=== PATIENT | male | born 1950 | race Caucasian/White ===

== ENCOUNTER 2017-04-04 08:30 | Observation (INO) | payer OTHER, MEDICARE ==
[~2017-04-04] VITALS: Ht 188 cm; Wt 87.7 kg
[2017-04-04] VITALS (7 sets, daily range): BP systolic 98–119; BP diastolic 62–81
[2017-04-04] MEDS ORDERED: IV NORMAL SALINE 1000ML BAG 1,000 ML IV SCH (08:31)
[2017-04-04] MEDS ORDERED: fentaNYL PF VIAL 100 MCG/2 ML VIAL IV PRN ×2 (08:45→10:30)
[2017-04-04] MEDS ORDERED: 0.9 % SODIUM CHLORIDE 10 ML DISP.SYRIN. IV PRN (08:45)
[2017-04-04 08:55] LABS: BASO # 0.1 x10^3/uL (0.0-0.2); BASO % 1 % (0-3); EOS % 2 % (0-3); HEMATOCRIT 41.3 % (39.0-53.0); HEMOGLOBIN 13.8 g/dL (13.0-17.5); LYMPH # 1.2 x10^3/uL (1.0-4.8); LYMPH % 16 % (24-48); MEAN CORPUSCULAR HEMOGLOBIN 29 pg (25-35); MEAN CORPUSCULAR HGB CONC 34 g/dL (31-37); MEAN CORPUSCULAR VOLUME 86 fL (79-100); MONO % 8 % (0-9); NEUT % 74 % (31-73); PLATELET COUNT 177 x10^3/uL (140-400); RED BLOOD COUNT 4.79 x10^6/uL (4.30-5.70); RED CELL DISTRIBUTION WIDTH 15.6 % (11.5-14.5); WHITE BLOOD COUNT 7.3 x10^3/uL (4.0-11.0)
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
[2017-04-04 09:07] LABS: CALCIUM 8.7 mg/dL (8.5-10.1); CREATININE 1.1 mg/dL (0.7-1.3); GFR 67.2; POTASSIUM 3.8 mmol/L (3.5-5.1)
--- NOTE | 2017-04-04 09:13 | RAD ---
Indication chest pain. Syncopal episode. Protocol study. A single view of the chest was obtained. No prior imaging is available. Heart size is at the upper limits of normal. There is no congestive heart failure. There is no focal infiltrate. There is no pleural fluid or pneumothorax and the visualized bony structures appear grossly intact. IMPRESSION: No acute or focal process is seen in the chest
[2017-04-04] MEDS ORDERED: ASPIRIN CHEWABLE 81 MG TABLET. PO ONE (09:15)
[2017-04-04 09:24] LABS: ALBUMIN 3.8 g/dL (3.4-5.0); DIRECT BILIRUBIN 0.3 mg/dL (0.0-0.2); MAGNESIUM 1.9 mg/dL (1.8-2.4); TOTAL BILIRUBIN 1.5 mg/dL (0.2-1.0); TOTAL PROTEIN 6.3 g/dL (6.4-8.2)
[2017-04-04 09:35] LABS: CKMB MASS 4.1 ng/mL (0.0-3.6)
[2017-04-04] MEDS: IV NORMAL SALINE 1000ML BAG 1,000 ML IV SCH ×2 (10:17→17:54)
[2017-04-04] MEDS ORDERED: ACETAMINOPHEN 325 MG TABLET. PO PRN (10:30)
[2017-04-04] MEDS ORDERED: NITROGLYCERIN SUBLINGUAL 0.4 MG BOTTLE OF 25. SL PRN (10:30)
[2017-04-04] MEDS ORDERED: ONDANSETRON PF 4 MG/2 ML VIAL. IV PRN (10:30)
[2017-04-04 11:39] LABS: BILIRUBIN,URINE NEGATIVE (NEG); GLUCOSE,URINE NEGATIVE (NEG); NITRITE,URINE NEGATIVE (NEG); PROTEIN,URINE NEGATIVE (NEG-TRACE); UROBILINOGEN,URINE 0.2 mg/dL (0.2 mg/dL)
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
[2017-04-04 11:55] LABS: BACTERIA,URINE 0 /HPF (0-FEW); RBC,URINE 0 /HPF (0-2); WBC,URINE 0 /HPF (0-4)
--- NOTE | 2017-04-04 12:49 | EKG ---
[facility] [address] [place] [address] Test Date: 2017-04-04 Test Time: 08:39:33 Pat Name: REID FELDMAN Department: Room: 208 1 Gender: M Housekeeping Attendant: : 1950 Requested By: DEMARCO HENRY Order Number: [id number] Reading MD: Isaiah Rogers Measurements Intervals [place] Rate: 58 P: -23 CO: 178 QRS: -14 QRSD: 100 T: 0 QT: 388 QTc: 380 Interpretive Statements SINUS RHYTHM LEFTWARD AXIS INCOMPLETE RIGHT BUNDLE BRANCH BLOCK QRS(T) CONTOUR ABNORMALITY CONSIDER ANTEROSEPTAL MYOCARDIAL DAMAGE CONSISTENT WITH INFERIOR INFARCT AGE UNDETERMINED RI6.01 Unconfirmed report No previous ECG available for comparison Electronically Signed On 04-09-2017 9:39:12 CDT by Isaiah Rogers
[2017-04-04 12:57] LABS: CHOLESTEROL/HDL RATIO 2.7
[2017-04-04] MEDS ORDERED: PRAS10TA9 PO (13:46)
[2017-04-04] MEDS ORDERED: ERGO500027 PO (13:46)
[2017-04-04] MEDS ORDERED: ATORVASTATIN CA80 MG PO (13:46)
[2017-04-04] MEDS ORDERED: FERR-26 PO (13:46)
[2017-04-04] MEDS ORDERED: PANT40TA5 PO (13:46)
[2017-04-04] MEDS ORDERED: LISI2.5T PO (13:46)
[2017-04-04] MEDS ORDERED: CARV3.122 PO (13:46)
[2017-04-04] MEDS: PANTOPRAZOLE 40 MG TABLET.DR. PO SCH (14:00)
[2017-04-04] MEDS: LISINOPRIL 2.5 MG TABLET PO SCH (14:00)
[2017-04-04] MEDS: PRASUGREL 10 MG TABLET. PO SCH (14:00)
[2017-04-04] MEDS: ASPIRIN ENTERIC COATED 81 MG TABLET.DR. PO SCH (14:00)
--- NOTE | 2017-04-04 15:18 | CARD ---
APPROVED REPORT EXAM: Two-dimensional and M-mode echocardiogram with Doppler and color Doppler. Other Information Quality : Fair Rhythm : NSRTechnically limited study due to INDICATION Chest Pain Syncope 2D DIMENSIONS Left Atrium(2D)3.2 (1.6-4.0cm)IVSd1.0 (0.7-1.1cm) Aortic Root(2D)3.6 (2.0-3.7cm)LVDd5.1 (3.9-5.9cm) LVOT Diameter2.0 (1.8-2.4cm)PWd1.0 (0.7-1.1cm) LVDs3.7 (2.5-4.0cm)FS (%) 28.0 % SV66.0 mlLVEF(%)54.0 (>50%) Aortic Valve AoV Peak Eliud.117.6cm/sAoV VTI28.1cm AO Peak GR.5.5mmHgLVOT VTI 26.56cm AO Mean GR.4mmHg Mitral Valve MV E Xhkxwwtx52.0cm/sMV DECEL NHMP212qx MV A Ownurivs19.6cm/sE/A Ratio0.9 MV A [id number] TDI Lateral E' P. V11.33cm/sMedial E' P. V7.92cm/s E/Lateral E'5.6E/Medial E'8.0 Tricuspid Valve TR P. Fpncsatd215iy/sRAP MYKJUBKA4kgSj TR Peak Gr.50usSbNIVU32neSb LEFT VENTRICLE The left ventricle is normal size. There is normal left ventricular wall thickness. Left ventricle sy stolic function is normal. The Ejection Fraction is 55%. There is normal LV segmental wall motion. Th e left ventricular diastolic function and filling is normal for age. There is no ventricular septal d efect visualized. RIGHT VENTRICLE The right ventricle is normal size. The right ventricular systolic function is normal. ATRIA The left atrium size is normal. The right atrium size is normal. The interatrial septum is intact wit h no evidence for an atrial septal defect or patent foramen ovale as noted on 2-D or Doppler imaging. AORTIC VALVE The aortic valve is normal in structure and function. The aortic valve is trileaflet. Doppler and Col or Flow revealed no significant aortic regurgitation. There is no significant aortic valvular stenosi s. MITRAL VALVE The mitral valve is normal in structure and function. There is no mitral valve stenosis. Doppler and Color Flow revealed no mitral valve regurgitation noted. TRICUSPID VALVE The tricuspid valve is not well visualized. Doppler and Color Flow revealed trace tricuspid regurgita tion. The PA pressure was estimated at 25 mmHg. There is no tricuspid valve stenosis. PULMONIC VALVE The pulmonic valve is not well visualized. Doppler and Color Flow revealed no pulmonic valvular regur gitation. There is no pulmonic valvular stenosis. GREAT VESSELS The aortic root is normal in size. Pulmonary veins not recorded. The IVC was not visualized. PERICARDIAL EFFUSION There is no evidence of significant pericardial effusion. Critical Notification Critical Value: No <Conclusion> Left ventricle systolic function is normal. The Ejection Fraction is 55%. There is normal LV segmental wall motion. Doppler and Color Flow revealed trace tricuspid regurgitation. The PA pressure was estimated at 25 mmHg. There is no evidence of significant pericardial effusion.
[2017-04-04] MEDS: FLUoxetine HCL 20 MG CAPSULE PO SCH (17:53)
[2017-04-04] MEDS: CARVEDILOL 3.125 MG TABLET. PO SCH (17:53)
--- NOTE | 2017-04-04 20:40 | HP ---
ADMIT DATE: 04/04/2017 CHIEF COMPLAINT: Chest pain. HISTORY OF PRESENT ILLNESS: The patient is a pleasant elderly male with known coronary artery disease. He actually had a myocardial infarction back in November of this year. He got two stents to the RCA. Once again, he had chest pain today, apparently was arguing with his . He also had some presyncopal symptoms. He was also crying in the ER. We suspect he is a little depressed. I have discussed the case with the ER physician. We are going to go and admit the patient and consult Cardiology. PAST MEDICAL HISTORY: Previous myocardial infarction, two coronary stents, hyperlipidemia, hypertension, depression. ALLERGIES: Denies. FAMILY HISTORY: Coronary artery disease. SOCIAL HISTORY: He is . He does not drink, smoke or take drugs. MEDICATIONS: Reviewed, please refer to the MRAD. REVIEW OF SYSTEMS: GENERAL: No history of weight change, weakness or fevers. SKIN: No bruising, hair changes or rashes. EYES: No blurred, double or loss of vision. NOSE AND THROAT: No history of nosebleeds, hoarseness or sore throat. HEART: He complains of chest pain and left arm tingling and left neck pain. LUNGS: Denies cough, hemoptysis, wheezing or shortness of breath. GASTROINTESTINAL: Denies changes in appetite, nausea, vomiting, diarrhea or constipation. GENITOURINARY: No history of frequency, urgency, hesitancy or nocturia. NEUROLOGIC: Denies history of numbness, tingling, tremor or weakness. PSYCHIATRIC: No history of panic, anxiety or depression. ENDOCRINE: No history of heat or cold intolerance, polyuria or polydipsia. EXTREMITIES: Denies muscle weakness, joint pain, pain on walking or stiffness. PHYSICAL EXAMINATION: VITAL SIGNS: Temperature afebrile, pulse 97, respirations 18, blood pressure 142/90. GASTROINTESTINAL: He is alert, cooperative. HEART: Normal S1, S2. LUNGS: Clear. ABDOMEN: Soft. EXTREMITIES: No edema. ENDOCRINE: No thyromegaly. LYMPHATICS: No cervical nodes. HEMATOPOIETIC: No bruising. LABORATORY DATA: White count 7, hemoglobin 13.8, platelets 177. Electrolytes normal. Troponin is 0. ASSESSMENT AND PLAN: Chest pain with known coronary artery disease. The patient has been admitted. We will check serial enzymes, serial EKGs. Consult Cardiology. Regarding his tearfulness, we will go ahead and put him on Prozac 20 mg p.o. every day. Resume his home medicines, daily aspirin. CHIO GOMES DO DR: SUSY/rahel JOB#: [id number] / [id number]
[2017-04-04] MEDS ORDERED: ATORVASTATIN CALCIUM 40 MG TABLET. PO SCH ×2 (21:00)
[2017-04-05] MEDS: IV NORMAL SALINE 1000ML BAG 1,000 ML IV SCH (02:57)
[2017-04-05 07:00] VITALS: BP 141/82
[2017-04-05] MEDS: ASPIRIN ENTERIC COATED 81 MG TABLET.DR. PO SCH (08:56)
[2017-04-05] MEDS: PANTOPRAZOLE 40 MG TABLET.DR. PO SCH (08:56)
[2017-04-05] MEDS: PRASUGREL 10 MG TABLET. PO SCH (08:56)
[2017-04-05] MEDS: LISINOPRIL 2.5 MG TABLET PO SCH (08:56)
[2017-04-05] MEDS: FLUoxetine HCL 20 MG CAPSULE PO SCH (08:57)
[2017-04-05] MEDS: CARVEDILOL 3.125 MG TABLET. PO SCH (08:57)
--- NOTE | 2017-04-05 10:56 | PDOC ---
CARDIO Progress Notes Date and Time Date of Service 04/05/2017 Time of Evaluation 0950 Subjective Subjective: No Chest Pain, No shortness of breath, No Palpitations, Other (No complains overnight) Vitals Vitals Vital Signs Date Time Temp Pulse Resp B/P (MAP) Pulse Ox O2 Delivery O2 Flow Rate FiO2 04/05/17 08:57 71 04/05/17 08:56 141/82 04/05/17 08:00 Room Air 04/05/17 07:00 98.5 18 97 98.5 Weight Weight [ ] Input and Output Intake and Output Intake and Output 04/05/17 07:00 Intake Total 1550 ml Balance 1550 ml Intake Oral 550 ml IV Total 1000 ml # Voids 4 Laboratory Labs Laboratory Tests Test 04/04/17 11:00 04/04/17 16:10 04/04/17 22:20 Urine Collection Type Unknown Urine Color Yellow Urine Clarity Clear Urine pH 7.0 Urine Specific [place] 1.010 Urine Protein Negative mg/dL (NEG-TRACE) Urine Glucose (UA) Negative mg/dL (NEG) Urine Ketones (Stick) Negative mg/dL (NEG) Urine Blood Negative (NEG) Urine Nitrite Negative (NEG) Urine Bilirubin Negative (NEG) Urine Urobilinogen Dipstick 0.2 mg/dL (0.2 mg/dL) Urine Leukocyte Esterase Negative (NEG) Urine RBC 0 /HPF (0-2) Urine WBC 0 /HPF (0-4) Urine Bacteria 0 /HPF (0-FEW) Troponin I Quantitative < 0.017 ng/mL (0.000-0.055) < 0.017 ng/mL (0.000-0.055) Physical Exam HEENT: Neck Supple W Full Motion Chest: Symmetric LUNGS: Clear to Auscultation Heart: S1S2, RRR (SR) Abdomen: Soft N/T Extremities: No Edema, No Calf Tenderness Neurology: alert, oriented, follow commands Assessment Assessment 1. Chest pain: likely induced by anxiety with vasovagal episode. No further episode overnight 2. Presyncope/palpitations: Likely vasovagal. Borderline orthostasis. 3. CAD/LA: Previous cardiac arrest with inferior STEMI, 2 stents to RCA 11/2016 4. HTN: controlled 5. HLP 6. Hx of CVA: see below. 11/2016 7. Likely vascular dementia: increasing forgetfulness 8. Anxiety/mild depression: now on prozac 9. Family hx of hemorrhagic stroke (mother) and inguinal aneurysm (father) Recommendations 1. TTE unremarkable for significant changes with normal EF and LV function. Continue with DAPT (ASA and effient) and secondary prevention 2. Continue with low dose coreg and lisinopril. Encourage hydration adequacy and slow positional changes. 3. No further cardiac workup. 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 Clark. 4. Decrease home lipitor to 40 mg as lipids are well too controlled 5. Will likely need outpt neurology follow up. 6. No evidence of AFIB as an inpt but pt was noted with AFIB while in ICU on 2016 post cardiac arrest. No noted recommendation for event monitor nor anticoagulation at that time. Will keep on ASA and will defer further of the latter to his primary axle bearing polisher. 7. Old records reviewed as below. * 12/05/2016 admitted with witnessed cardiac arrest at work noted with Inferior STEMI presenting with V-Fib and also noted with AFIB * 12/05/2016 LHC noted with 100% to mid RCA and OM 1 with 70-80% in the inferior branch, LAD with luminal irregularities with proximal 40% and mid 30% stenosis * Noted at that time with inferior wall hypokinesis with EF at 40%, PTCA with x2 Resolute TRIPP to mid RCA * 12/07/2016 Brain MRI with 2 small punctuate foci of restricted diffusion and decreased signal intensity on ADC mapping are noted to right cerebellum and inferior left parietal temporal lobe suggesting possible tiny acute lacunar or embolic infarcts * Mild to moderate carotid artery disease [employer] Apr 05, 2017 10:56
[2017-04-05 11:00] VITALS: BP 131/77
--- NOTE | 2017-04-05 11:47 | PDOC ---
PROGRESS NOTES Chief Complaint Chief Complaint CC: Chest pain -ND -V-fib -Stent complications History of Present Illness History of Present Illness -Pt resting in bed -Appeared alert and NAD -Discussed pt's anxiety provoking circumstances with nurse -Discussed positive prognosis with pt Vitals Vitals Vital Signs Date Time Temp Pulse Resp B/P (MAP) Pulse Ox O2 Delivery O2 Flow Rate FiO2 04/05/17 11:00 98.1 66 18 131/77 (95) 96 Room Air 98.1 Physical Exam General: Alert, Oriented X3, Cooperative, No acute distress Heart: Regular rate (SR), Normal S1, Normal S2, No murmurs Lungs: Clear, Other (No RRW) Abdomen: Soft, No tenderness Extremities: No cyanosis, No edema Skin: No breakdown, No significant lesion Labs LABS Laboratory Tests Test 04/04/17 16:10 04/04/17 22:20 Troponin I Quantitative < 0.017 ng/mL (0.000-0.055) < 0.017 ng/mL (0.000-0.055) Review of Systems Review of Systems -Weakness -Complains of anxiety Assessment and Plan Assessmemt and Plan Problems Medical Problems: (1) Abnormal EKG Status: Acute (2) Anxiety Status: Acute (3) Chest pain Status: Acute CC: Chest pain -ND -V-fib -Stent complications Plan: -Continue cardiac monitoring -Continue home meds -PT/OT -Recheck labs -Appreciate subspecialist input -Possible d/c if okay with Cardiology Problems: Comment Review of Relevant I have reviewed the following items cristi (where applicable) has been applied. Labs Laboratory Tests Test 04/04/17 08:48 04/04/17 11:00 04/04/17 16:10 04/04/17 22:20 White Blood Count 7.3 x10^3/uL (4.0-11.0) Red Blood Count 4.79 x10^6/uL (4.30-5.70) Hemoglobin 13.8 g/dL (13.0-17.5) Hematocrit 41.3 % (39.0-53.0) Mean Corpuscular Volume 86 fL (79-100) Mean Corpuscular Hemoglobin 29 pg (25-35) Mean Corpuscular Hemoglobin Concent 34 g/dL (31-37) Red Cell Distribution Width 15.6 % (11.5-14.5) Platelet Count 177 x10^3/uL (140-400) Neutrophils (%) (Auto) 74 % (31-73) Lymphocytes (%) (Auto) 16 % (24-48) Monocytes (%) (Auto) 8 % (0-9) Eosinophils (%) (Auto) 2 % (0-3) Basophils (%) (Auto) 1 % (0-3) Neutrophils # (Auto) 5.4 x10^3uL (1.8-7.7) Lymphocytes # (Auto) 1.2 x10^3/uL (1.0-4.8) Monocytes # (Auto) 0.6 x10^3/uL (0.0-1.1) Eosinophils # (Auto) 0.1 x10^3/uL (0.0-0.7) Basophils # (Auto) 0.1 x10^3/uL (0.0-0.2) Sodium Level 141 mmol/L (136-145) Potassium Level 3.8 mmol/L (3.5-5.1) Chloride Level 106 mmol/L (98-107) Carbon Dioxide Level 27 mmol/L (21-32) Anion Gap 8 (6-14) Blood Urea Nitrogen 18 mg/dL (8-26) Creatinine 1.1 mg/dL (0.7-1.3) Estimated GFR (Cockcroft-Gault) 67.2 Glucose Level 112 mg/dL (70-99) Calcium Level 8.7 mg/dL (8.5-10.1) Magnesium Level 1.9 mg/dL (1.8-2.4) Total Bilirubin 1.5 mg/dL (0.2-1.0) Direct Bilirubin 0.3 mg/dL (0.0-0.2) Aspartate Amino Transf (AST/SGOT) 21 U/L (15-37) Alanine Aminotransferase (ALT/SGPT) 44 U/L (16-63) Alkaline Phosphatase 101 U/L (46-116) Creatine Kinase 150 U/L (39-308) Creatine Kinase MB (Mass) 4.1 ng/mL (0.0-3.6) Creatine Kinase MB Relative Index 2.7 % (0-4) Troponin I Quantitative < 0.017 ng/mL (0.000-0.055) < 0.017 ng/mL (0.000-0.055) < 0.017 ng/mL (0.000-0.055) PE-Hss-Z-Type Natriuretic Peptide 270 pg/mL (0-124) Total Protein 6.3 g/dL (6.4-8.2) Albumin 3.8 g/dL (3.4-5.0) Triglycerides Level 67 mg/dL (0-150) Cholesterol Level 81 mg/dL (0-200) LDL Cholesterol, Calculated 38 mg/dL (0-100) VLDL Cholesterol, Calculated 13 mg/dL (0-40) Non-HDL Cholesterol Calculated 51 mg/dL (0-129) HDL Cholesterol 30 mg/dL (40-60) Cholesterol/HDL Ratio 2.7 Lipase 157 U/L (73-393) Thyroid Stimulating Hormone (TSH) 0.522 uIU/mL (0.358-3.74) Urine Collection Type Unknown Urine Color Yellow Urine Clarity Clear Urine pH 7.0 Urine Specific [place] 1.010 Urine Protein Negative mg/dL (NEG-TRACE) Urine Glucose (UA) Negative mg/dL (NEG) Urine Ketones (Stick) Negative mg/dL (NEG) Urine Blood Negative (NEG) Urine Nitrite Negative (NEG) Urine Bilirubin Negative (NEG) Urine Urobilinogen Dipstick 0.2 mg/dL (0.2 mg/dL) Urine Leukocyte Esterase Negative (NEG) Urine RBC 0 /HPF (0-2) Urine WBC 0 /HPF (0-4) Urine Bacteria 0 /HPF (0-FEW) Laboratory Tests Test 04/04/17 16:10 04/04/17 22:20 Troponin I Quantitative < 0.017 ng/mL (0.000-0.055) < 0.017 ng/mL (0.000-0.055) Medications Current Medications Aspirin (Children'S Aspirin) 324 mg 1X ONCE PO Last administered on 04/04/17 09:05; Start 04/04/17 at 09:15; Stop 04/04/17 at 09:16; Status DC Lorazepam (Ativan) 1 mg 1X ONCE IV Last administered on 04/04/17 09:05; Start 04/04/17 at 09:15; Stop 04/04/17 at 09:16; Status DC Fentanyl Citrate (Fentanyl 2ml Vial) 50 mcg PRN Q15MIN PRN IV PAIN GREATER THAN 3/10; Start 04/04/17 at 08:45; Stop 04/05/17 at 08:44; Status DC Sodium Chloride 1,000 ml @ 1,000 mls/hr Q1H IV Last administered on 04/04/17 08:56; Start 04/04/17 at 08:31; Stop 04/04/17 at 09:30; Status DC Sodium Chloride (Normal Saline Flush) 10 ml QSHIFT PRN IV AFTER MEDS AND BLOOD DRAWS; Start 04/04/17 at 08:45 Ondansetron HCl (Zofran) 4 mg PRN Q8HRS PRN IV NAUSEA/VOMITING; Start 04/04/17 at 10:30; Stop 04/05/17 at 10:29; Status DC Fentanyl Citrate (Fentanyl 2ml Vial) 50 mcg PRN Q2HR PRN IV PAIN; Start at 10:30; Stop 04/05/17 at 10:29; Status DC Sodium Chloride 1,000 ml @ 120 mls/hr Q8H20M IV Last administered on 04/04/17 17:54; Start 04/04/17 at 10:17; Stop 04/05/17 at 10:16; Status DC Acetaminophen (Tylenol) 650 mg PRN Q4HRS PRN PO FEVER; Start 04/04/17 at 10:30; Stop 04/05/17 at 10:29; Status DC Nitroglycerin (Nitrostat) 0.4 mg PRN Q5MIN PRN SL CHEST PAIN; Start 04/04/17 at 10:30; Stop 04/05/17 at 10:29; Status DC Prasugrel (Effient) 10 mg DAILYWBKFT PO Last administered on 04/05/17 08:56; Start 04/04/17 at 14:00 Pantoprazole Sodium (Protonix) 40 mg DAILYAC PO Last administered on 04/05/17 08:56; Start 04/04/17 at 14:00 Aspirin (Ecotrin) 81 mg DAILYWBKFT PO Last administered on 04/05/17 08:56; Start 04/04/17 at 14:00 Atorvastatin Calcium (Lipitor) 80 mg QHS PO ; Start 04/04/17 at 21:00; Stop at 21:00; Status DC Carvedilol (Coreg) 3.125 mg BIDWMEALS PO Last administered on 04/05/17 08:57; Start 04/04/17 at 17:00 Lisinopril (Prinivil) 2.5 mg DAILY PO Last administered on 04/05/17 08:56; Start 04/04/17 at 14:00 Atorvastatin Calcium (Lipitor) 40 mg QHS PO Last administered on 04/04/17 20:49 ; Start 04/04/17 at 21:00 Fluoxetine HCl (PROzac) 20 mg DAILY PO Last administered on 04/05/17 08:57; Start 04/04/17 at 17:30 Active Scripts Active Reported Ferrous Sulfate 325 Mg Tablet 325 Mg PO DAILY Lisinopril 2.5 Mg Tablet 2.5 Mg PO DAILY Carvedilol 3.125 Mg Tablet 3.125 Mg PO BIDWMEALS Vitamin D2 (Ergocalciferol (Vitamin D2)) 50,000 Unit Capsule 50,000 Unit PO QTH Pantoprazole Sodium 40 Mg Tablet.dr 40 Mg PO DAILY Atorvastatin Calcium 80 Mg Tablet 80 Mg PO DAILY Effient (Prasugrel Hcl) 10 Mg Tablet 10 Mg PO DAILY Vitals/I & O Vital Sign - Last 24 Hours 04/04/17 04/04/17 04/04/17 04/04/17 11:37 12:30 14:22 15:30 Temp 97.7 98.0 97.7 98.0 Pulse 56 63 62 Resp 18 18 B/P (MAP) 119/81 (94) 103/66 (78) 111/68 (82) Pulse Ox 98 97 O2 Delivery Room Air Room Air Room Air 04/04/17 04/04/17 04/04/17 04/04/17 15:35 15:40 17:53 19:21 Temp 98.4 98.4 Pulse 58 74 63 66 Resp 20 B/P (MAP) 108/65 (79) 98/62 (74) 110/65 (80) Pulse Ox 96 O2 Delivery Room Air 04/04/17 04/04/17 04/05/17 04/05/17 20:00 22:23 02:39 07:00 Temp 98.5 98.2 98.5 98.5 98.2 98.5 Pulse 66 69 70 Resp 18 18 18 B/P (MAP) 107/64 (78) 141/82 (101) Pulse Ox 95 96 97 O2 Delivery Room Air Room Air Room Air Room Air 04/05/17 04/05/17 04/05/17 04/05/17 08:00 08:56 08:57 11:00 Temp 98.1 98.1 Pulse 71 66 Resp 18 B/P (MAP) 141/82 131/77 (95) Pulse Ox 96 O2 Delivery Room Air Room Air Intake and Output 04/04/17 04/04/17 04/05/17 15:00 23:00 07:00 Intake Total 1000 ml 500 ml 50 ml Balance 1000 ml 500 ml 50 ml CHIO GOMES III DO Apr 05, 2017 11:47
[2017-04-05] MEDS ORDERED: FLUO20CA8 PO (12:36)
== END 2017-04-05 14:48 | disposition home or self-care (01) ==
LOC: ER 08:30 → INTOOBSV 10:23 → 2 NORTH 10:23
PROVIDERS: ADMIT Internal Medicine; ATTEND Internal Medicine
DX: R07.9 Chest pain, unspecified (principal); I25.10 Atherosclerotic heart disease of native coronary artery without angina pectoris; I25.2 Old myocardial infarction; E78.5 Hyperlipidemia, unspecified; I10 Essential (primary) hypertension; F32.9 Major depressive disorder, single episode, unspecified; F41.9 Anxiety disorder, unspecified; F03.90 Unspecified dementia, unspecified severity, without behavioral disturbance, psychotic disturbance, mood disturbance, and anxiety; M19.90 Unspecified osteoarthritis, unspecified site; H26.9 Unspecified cataract; K21.9 Gastro-esophageal reflux disease without esophagitis; E78.00 Pure hypercholesterolemia, unspecified; Z95.5 Presence of coronary angioplasty implant and graft; Z86.74 Personal history of sudden cardiac arrest; Z82.49 Family history of ischemic heart disease and other diseases of the circulatory system; Z79.899 Other long term (current) drug therapy; Z82.3 Family history of stroke; Z86.73 Personal history of transient ischemic attack (TIA), and cerebral infarction without residual deficits
CPT/HCPCS: 36415; 71010; 80048; 80061; 80076; 81001; 82553; 83690; 83735; 83880; 84443; 84484; 85027; 93005; 93306; 96361; 96374; 99285; G0378; J2060; J7030; G0379

== ENCOUNTER 2018-03-12 08:54 | Emergency (ER) | payer MEDICARE, OTHER ==
[2018-03-12 09:20] LABS: ADD MAN DIFF? NO
[2018-03-12 09:22] LABS: BASO % 1 % (0-3); EOS # 0.1 x10^3/uL (0.0-0.7); EOS % 2 % (0-3); HEMOGLOBIN 15.2 g/dL (13.0-17.5); LYMPH # 1.1 x10^3/uL (1.0-4.8); LYMPH % 17 % (24-48); MEAN CORPUSCULAR HEMOGLOBIN 30 pg (25-35); MEAN CORPUSCULAR HGB CONC 34 g/dL (31-37); MEAN CORPUSCULAR VOLUME 90 fL (79-100); MONO # 0.4 x10^3/uL (0.0-1.1); MONO % 6 % (0-9); NEUT # 4.5 x10^3uL (1.8-7.7); NEUT % 74 % (31-73); PLATELET COUNT 139 x10^3/uL (140-400); RED BLOOD COUNT 5.02 x10^6/uL (4.30-5.70); RED CELL DISTRIBUTION WIDTH 13.9 % (11.5-14.5); WHITE BLOOD COUNT 6.1 x10^3/uL (4.0-11.0)
[2018-03-12 09:32] LABS: ANION GAP 7 (6-14); BLOOD UREA NITROGEN 16 mg/dL (8-26); CALCIUM 8.5 mg/dL (8.5-10.1); CARBON DIOXIDE 29 mmol/L (21-32); CHLORIDE 107 mmol/L (98-107); CREATININE 1.1 mg/dL (0.7-1.3); GFR 67.2; GLUCOSE 167 mg/dL (70-99); INR 1.3 (0.8-1.1); PARTIAL THROMBOPLASTIN TIME 31 SEC (24-38); POTASSIUM 3.5 mmol/L (3.5-5.1); PROTHROMBIN TIME PATIENT 15.6 SEC (11.7-14.0); SODIUM 143 mmol/L (136-145)
[2018-03-12 09:42] LABS: TROPONINI < 0.017 ng/mL (0.000-0.055)
[2018-03-12 09:44] LABS: NT-PRO BNP 158 pg/mL (0-124)
[2018-03-12 14:05] LABS: TROPONINI < 0.017 ng/mL (0.000-0.055)
== END 2018-03-12 15:28 | disposition home or self-care (01) ==
LOC: ER 08:54
DX: R07.2 Precordial pain (principal); I11.9 Hypertensive heart disease without heart failure; E78.00 Pure hypercholesterolemia, unspecified; I25.2 Old myocardial infarction; I25.10 Atherosclerotic heart disease of native coronary artery without angina pectoris; Z95.5 Presence of coronary angioplasty implant and graft; Z88.8 Allergy status to other drugs, medicaments and biological substances
CPT/HCPCS: 36415; 71045; 80048; 83880; 84484; 85025; 85610; 85730; 93005; 99285-25

== ENCOUNTER → 2018-09-24 | Outpatient (CLI) | payer MEDICARE ==
[2018-03-12 15:07] VITALS: BP 138/83
[~2018-09-24] MED LIST: ATORVASTATIN CA80 MG PO; CARV3.1210 PO; ERGO500027 PO; FERR325T14 PO; FLUO20CA8 PO; LISI2.5T PO; PANT40TA77 PO; PRAS10TA9 PO; REGADENOSON 0.4 MG/5 ML DISP.SYRIN. IV ONE
--- NOTE | 2018-09-24 11:38 | RAD ---
MR#: [id number] Date of Study: 09/24/2018 Ordering Physician: ALEKSANDR LUJAN, Referring Physician: BESSIE MATA Tech: RT Viviana (R) (N) APPROVED REPORT Test Type: Exercise Stress Nurse/Tech: Wai DEL ROSARIO Test Indications: CAD Cardiac History: ND= November 2016=2 stents placed, HTN, CVA Medications: See EMR Medical History: See EMR Resting ECG: SR Resting Heart Rate: 53 bpm Resting Blood Pressure: 141/82mmHg Pretest Chest Pain: No chest pain Nurse/Tech Notes Lungs clear on right side, Rhonchi sounding on the Left. Heart tones regular. Consent: The procedure was explained to the patient in lay terms. Informed consent was witnessed. Lan eout was entered into [employer]. History and Stress Test performed by RT John (R) (N) Stress Symptoms At stage 3 Peak exercise 01:41, patient describes chest discomfort at a 4/10. Stage R 01:55 pt tonya cribes having chest discomfort at a 2/10; Stage R 02:55 patient describes chest discomfort at 1/10. Stage R 04:55 patient describes chest discomfort is 0/10, POST EXERCISE Reason for Termination: Reached target heart rate Target HR: Yes Max HR: 136 bpm 103% of Maximum Predicted HR: 130 bpm Exercise duration: 7:41 min:sec, 3 Stage Exercise capacity: 10.0METs Max Blood Pressure: 174/83mmHg Blood Pressure response to exercise: Normal blood pressure response during stress. Heart Rate response to exercise: Yes Chest Pain: Yes. Arrhythmia: No. ST Change: No. INTERPRETATION Stress EKG Conclusion: Baseline EKG showed sinus rhythm with incomplete RBBB. No ischemic changes at peak stress. No arrhythmias. Imaging Protocol IMAGE PROTOCOL: Rest Tc-99m/stress Tc-99m 1 day Rest: Stress: Viability: Radiopharm.Tc99m [id number] Sestamibi [id number] 33mCi Duration 13min. 13min. Img Date 09/24/2018 09/24/2018 Inj-Img [id number]. 60min. Rest Admin Site:IV - Right ForearmAdministrator:Ifeanyi Brito, RT (R)(N) Stress Admin Site: IV - Right ForearmAdministrator: Karla Doyle, RT (R)(N) STRESS DATA End Diast. Vol.101.0mlLVEDV index BSA46.0ml End Syst. Vol.36.0mlLVESV index BSA16.0ml Myocardial Apss154.0gEject. Ignnckrz35.0% Stress Scores Regional WT1.00Summed WT15.00 Regional WM0.00Summed WM5.00 LV Perfusion Scintigraphic images showed small fixed defect involving the apical wall consistent with previous patrice cardial infarction without any significant reversibility. No other fixed or reversible defects seen. Wall Motion Normal left ventricle systolic function with ejection fraction calculated at 64%. LV Perf. Quant 17 Seg. SSS6.00 17 Seg. SRS9.00 17 Seg. SDS0.00 Stress Defect Extent (% LAD)0.00Rest Defect Extent (% LAD)0.60Rev. Defect Extent (% LAD)0.00 Stress Defect Extent (% LCX) 38.80Rest Defect Extent (% LCX)40.00Rev. Defect Extent (% LCX)0.00 Stress Defect Extent (% RCA)0.00Rest Defect Extent (% RCA)4.40Rev. Defect Extent (% RCA)0.00 Stress Defect Extent (% PATRICE)6.70Rest Defect Extent (% PATRICE)10.90Rev. Defect Extent (% PATRICE)0.00 Conclusion 1. Treadmill exercise cardioisotope stress test showed small apical wall infarct without any signific ant ischemia. 2. Normal left ventricular systolic function with ejection fraction calculated at 64%. 3. Low risk for cardiac events. Signed by : Corey Hernández, Electronically Approved : 09/24/2018 11:36:18
== END | disposition home or self-care (01) ==
LOC: NM 07:41
PROVIDERS: ATTEND Internal Medicine Cardiovascular Disease
DX: I25.10 Atherosclerotic heart disease of native coronary artery without angina pectoris (principal); I10 Essential (primary) hypertension; I25.2 Old myocardial infarction; Z86.73 Personal history of transient ischemic attack (TIA), and cerebral infarction without residual deficits
CPT/HCPCS: 78452; 93017; 96374; 96376; A9500

== ENCOUNTER 2019-04-05 13:47 | Inpatient (IN) | payer MEDICARE ==
[~2019-04-05] VITALS: Ht 182.9 cm; Wt 91.2 kg
[~2019-04-05 13:47] MED LIST changes: -REGADENOSON 0.4 MG/5 ML DISP.SYRIN. IV ONE
--- NOTE | 2019-04-05 13:59 | PHYS DOC ---
Past Medical History Past Medical History: CAD, High Cholesterol, Heart Disease, Hypertension, [place] Past Surgical History: Other Additional Past Surgical Histo: stents placed in November. right knee orthoscopy Alcohol Use: Rarely Drug Use: None Adult General Chief Complaint Chief Complaint: NEURO SYMPTOMS/DEFICITS [facility] HPI Patient is a 69 year old who brought in by his because of slurred speech and left hand weakness. Patient stated they were eating lunch and suddenly he developed slurred speech and was not able to move his left hand from wrist down. Patient states he was not able to talk and was not able to move his face without tenderness prior to arrival to ER. Patient states the weakness is getting better but he is not in his usual condition. Patient denies paresthesia, headache, blurred vision, nausea vomiting, chest pain and shortness of breath, history of the same problem. Review of Systems Review of Systems Constitutional: Denies fever or chills [] Eyes: Denies change in visual acuity, redness, or eye pain [] HENT: Denies nasal congestion or sore throat [] Respiratory: Denies cough or shortness of breath [] Cardiovascular: No additional information not addressed in HPI [] GI: Denies abdominal pain, nausea, vomiting, bloody stools or diarrhea [] : Denies dysuria or hematuria [] Musculoskeletal: Denies back pain or joint pain [] Integument: Denies rash or skin lesions [] Neurologic: Denies headache, reports focal weakness . Endocrine: Denies polyuria or polydipsia [] All other systems were reviewed and found to be within normal limits, except as documented in this note. Allergies Allergies Allergies Coded Allergies Type Severity Reaction Last Updated Verified niacin Allergy Intermediate 04/04/17 Yes Physical Exam Physical Exam Constitutional: Well developed, well nourished, mild distress, non-toxic appearance. [] HENT: Normocephalic, atraumatic, oropharynx moist. Eyes: PERRLA, EOMI, conjunctiva normal, no discharge. [] Neck: Normal range of motion, no tenderness, supple, no stridor. [] Cardiovascular:Heart rate regular rhythm, no murmur [] Lungs & Thorax: Bilateral breath sounds clear to auscultation [] Abdomen: Bowel sounds normal, soft, no tenderness, no masses, no pulsatile masses. [] Skin: Warm, dry, no erythema, no rash. [] Back: No tenderness, no CVA tenderness. [] Extremities: No tenderness, no cyanosis, no clubbing, ROM intact, no edema. [] Neurologic: Alert and oriented X 3, normal motor function, normal sensory function, no focal deficits noted.NIHS of 0 Psychologic: Affect anxious, judgement normal, mood normal. [] Current Patient Data Vital Signs Vital Signs Date Time Temp Pulse Resp B/P (MAP) Pulse Ox O2 Delivery O2 Flow Rate FiO2 04/05/19 13:57 98.8 64 18 149/64 (92) Room Air 98.8 Lab Values Laboratory Tests Test 04/05/19 13:52 04/05/19 14:00 Glucose (Fingerstick) 127 mg/dL (70-99) H White Blood Count 6.7 x10^3/uL (4.0-11.0) Red Blood Count 5.00 x10^6/uL (4.30-5.70) Hemoglobin 15.2 g/dL (13.0-17.5) Hematocrit 43.9 % (39.0-53.0) Mean Corpuscular Volume 88 fL (79-100) Mean Corpuscular Hemoglobin 30 pg (25-35) Mean Corpuscular Hemoglobin Concent 35 g/dL (31-37) Red Cell Distribution Width 14.0 % (11.5-14.5) Platelet Count 151 x10^3/uL (140-400) Prothrombin Time 15.2 SEC (11.7-14.0) H Prothrombin Time INR 1.2 (0.8-1.1) H Activated Partial Thromboplast Time 31 SEC (24-38) Sodium Level 146 mmol/L (136-145) H Potassium Level 3.5 mmol/L (3.5-5.1) Chloride Level 109 mmol/L (98-107) H Carbon Dioxide Level 26 mmol/L (21-32) Anion Gap 11 (6-14) Blood Urea Nitrogen 17 mg/dL (8-26) Creatinine 1.1 mg/dL (0.7-1.3) Estimated GFR (Cockcroft-Gault) 66.8 BUN/Creatinine Ratio 15 (6-20) Glucose Level 133 mg/dL (70-99) H Calcium Level 8.6 mg/dL (8.5-10.1) Total Bilirubin 1.5 mg/dL (0.2-1.0) H Aspartate Amino Transferase (AST) 19 U/L (15-37) Alanine Aminotransferase (ALT) 26 U/L (16-63) Alkaline Phosphatase 119 U/L (46-116) H Creatine Kinase 179 U/L (39-308) Troponin I Quantitative < 0.017 ng/mL (0.000-0.055) Total Protein 6.1 g/dL (6.4-8.2) L Albumin 3.7 g/dL (3.4-5.0) Albumin/Globulin Ratio 1.5 (1.0-1.7) Laboratory Tests 04/05/19 14:00 Laboratory Tests 04/05/19 14:00 EKG EKG EKG interpreted by me. EKG at 1403 showed normal sinus rhythm at rate of 63, le ft bates axis deviation, incomplete right bundle-branch block, no acute ST and T- wave abnormalities. Radiology/Procedures Radiology/Procedures [][facility] [address] [place] [address] IMAGING REPORT Signed PATIENT: RIED SIMONS JR EACCOUNT: [id number] : 1950 LOCATION: ER AGE: 69 SEX: M EXAM STATUS: PRE ER ORD. PHYSICIAN: CESAR SAN MD REASON: status speech and left upper extremity weakness PROCEDURE: CT CODE STROKE HEAD WO PQRS Compliance Statement: One or more of the following individualized dose reduction techniques were utilized for this examination: 1. Automated exposure control 2. Adjustment of the mA and/or kV according to patient size 3. Use of iterative reconstruction technique CT HEAD WITHOUT CONTRAST History: Slurred speech, left upper extremity weakness. Comparison: None. Technique: Axial images are obtained of the head from the skull base through the vertex without IV contrast. Findings: No mass-effect, midline shift, extra-axial fluid collection, hemorrhage, or obvious acute infarction is identified. Basilar cisterns are patent. The ventricles and sulci are normal for patient age. There is minimal supratentorial white matter hypoattenuation. This is a nonspecific finding but is commonly due to chronic small vessel ischemic disease. Bone windows demonstrate no acute calvarial abnormality. The visualized paranasal sinuses are clear. Mastoid air cells are well aerated. IMPRESSION: No acute intracranial abnormality. Findings discussed with CESAR SAN in the ED at 04/05/2019 2:06 PM. FOR INTERNAL CODING PURPOSES Critical result: RESULT CODE: (C) Electronically signed by: Sancho Casillas MD (04/05/2019 2:07 PM) [facility] DICTATED and SIGNED BY: SANCHO CASILLAS MD DATE: 04/05/19 1768 Course & Med Decision Making Course & Med Decision Making Pertinent Labs and Imaging studies reviewed. (See chart for details) Evaluation of patient in ER showed 69-year-old male patient with sudden onset of neuro deficit with activation of code stroke at his arrival. Patient had re sulting of his symptoms and NIH scale of 0 and was not a candidate for TPA. Patient treated with aspirin in ER after negative CT of head and admitted to hospitalist. On-call neurologist Dr. Baumann was consulted at 1434 and recommended to obtain ct angio head and neck with pending results. Patient requiring admission for further evaluation and treatment. Discussed with Dr. Montgomery who is in agreement with admission. Discussed findings and plan with patient and family, who acknowledge understanding and agreement. Dragon Disclaimer Dragon Disclaimer This electronic medical record was generated, in whole or in part, using a voice recognition dictation system. Departure Departure Impression: Primary Impression: TIA (transient ischemic attack) Additional Impression: Elevated liver function tests Disposition: ADMITTED INPATIENT (at 1410) Admitting Physician: REMEDIOS (Valentín Montgomery accepted admission at 1409) Condition: IMPROVED Referrals: LIO ALVAREZ MD (PCP) NIHSS Stroke Scale NIH Stroke Scale: NIH Stroke Scale Response (Comments) Value Level of Consciousness: 0 Alert/Responsive 0 LOC Questions: 0 Answers both correctly 0 Best Gaze: 0 Normal 0 Visual: 0 No visual loss 0 Facial Palsy: 0 Normal, symmetrical 0 Motor - Left Arm 0 No drift 0 Motor - Right Arm 0 No drift 0 Motor - Left Leg 0 No drift 0 Motor: Right Leg 0 No drift 0 Limb Ataxia: 0 Absent 0 Sensory: 0 No loss 0 Best Language: 0 Normal 0 Dysathria: 0 Normal 0 Extinction and Inattention: 0 Normal 0 Total 0 Critical Care Time Critical care time was 60 minutes exclusive of procedures. Problem Qualifiers CESAR SAN MD Apr 05, 2019 13:59
--- NOTE | 2019-04-05 14:10 | RAD ---
PQRS Compliance Statement: One or more of the following individualized dose reduction techniques were utilized for this examination: 1. Automated exposure control 2. Adjustment of the mA and/or kV according to patient size 3. Use of iterative reconstruction technique CT HEAD WITHOUT CONTRAST History: Slurred speech, left upper extremity weakness. Comparison: None. Technique: Axial images are obtained of the head from the skull base through the vertex without IV contrast. Findings: No mass-effect, midline shift, extra-axial fluid collection, hemorrhage, or obvious acute infarction is identified. Basilar cisterns are patent. The ventricles and sulci are normal for patient age. There is minimal supratentorial white matter hypoattenuation. This is a nonspecific finding but is commonly due to chronic small vessel ischemic disease. Bone windows demonstrate no acute calvarial abnormality. The visualized paranasal sinuses are clear. Mastoid air cells are well aerated. IMPRESSION: No acute intracranial abnormality. Findings discussed with CESAR SAN in the ED at 04/05/2019 2:06 PM. FOR INTERNAL CODING PURPOSES Critical result: RESULT CODE: (C) Electronically signed by: Sancho Casillas MD (04/05/2019 2:07 PM) [facility]
[2019-04-05 14:20] LABS: HEMATOCRIT 43.9 % (39.0-53.0); HEMOGLOBIN 15.2 g/dL (13.0-17.5); WHITE BLOOD COUNT 6.7 x10^3/uL (4.0-11.0)
[2019-04-05 14:30] LABS: CALCIUM 8.6 mg/dL (8.5-10.1); CREATININE 1.1 mg/dL (0.7-1.3); GFR 66.8; POTASSIUM 3.5 mmol/L (3.5-5.1)
[2019-04-05] MEDS ORDERED: ASPIRIN CHEWABLE 81 MG TABLET. PO ONE (14:30)
[2019-04-05 14:32] LABS: PROTHROMBIN TIME PATIENT 15.2 SEC (11.7-14.0)
[2019-04-05 14:36] LABS: ALBUMIN 3.7 g/dL (3.4-5.0); ALBUMIN/GLOBULIN RATIO 1.5 (1.0-1.7); TOTAL BILIRUBIN 1.5 mg/dL (0.2-1.0); TOTAL PROTEIN 6.1 g/dL (6.4-8.2)
[2019-04-05] MEDS ORDERED: CONTRAST GIVEN. MC PRN (14:45)
[2019-04-05] MEDS ORDERED: IOHEXOL 350 MG/ML 100 ML VIAL. IV ONE (14:45)
[2019-04-05 15:22] LABS: BILIRUBIN,URINE NEGATIVE (NEG); CLARITY,URINE CLEAR; COLOR,URINE YELLOW; NITRITE,URINE NEGATIVE (NEG); PROTEIN,URINE NEGATIVE (NEG-TRACE)
[2019-04-05 15:28] LABS: BACTERIA,URINE 0 /HPF (0-FEW); RBC,URINE 0 /HPF (0-2); WBC,URINE RARE /HPF (0-4)
--- NOTE | 2019-04-05 15:47 | RAD ---
CTA of the head and neck with contrast 04/05/2019 Clinical history: Slurred speech with left upper extremity weakness. Technique: After the intravenous administration 75 cc of Omnipaque 350, contiguous, 0.625 mm axial sections were obtained through the upper chest, neck and head. Multiplanar 3-D MIP and volume rendered 3-D reconstructed images were obtained. One or more of the following individualized dose reduction techniques were utilized for this study: 1. Automated exposure control. 2. Adjustment of the mA and/or kV according to patient size. 3. Use of iterative reconstruction technique. Findings: Comparison is made to patient's CT scan of the head performed earlier today. Atherosclerotic calcification of the thoracic aortic arch and its branches is noted. The origins of the brachiocephalic, left common carotid and left subclavian arteries from the thoracic aortic arch are patent. The origin of the right common carotid artery and both vertebral arteries are patent. Mild to moderate atheromatous/atherosclerotic plaque formation is seen involving both carotid bifurcations and proximal internal carotid arteries, right greater than left. A 60% stenosis is seen involving the proximal right internal carotid artery near its origin. This measures 5 mm in length. No hemodynamically significant stenosis is seen involving the left carotid bifurcation or internal carotid artery. The right vertebral artery is slightly dominant. Both vertebral arteries demonstrate normal antegrade flow. Atherosclerotic calcification of the cavernous portions of both internal carotid arteries is seen. No definite area of stenosis is seen. Mild atheromatous plaque formation is seen involving the basilar artery. No area of stenosis is seen. Mild to moderate atheromatous plaque formation is seen involving anterior, middle and posterior cerebral arteries. No area of stenosis or occlusion is seen. No intracranial aneurysm is noted. The major dural venous sinuses are patent. No area of abnormal contrast enhancement is seen. No acute soft tissue abnormality is seen involving the neck. Degenerative changes are seen involving the uncovertebral and facet joints throughout the cervical disc spaces. IMPRESSION: 1. Mild to moderate atheromatous/atherosclerotic plaque formation seen involving both carotid bifurcations and proximal internal carotid arteries, right greater than left. A 60% stenosis is seen involving the proximal right internal carotid artery near its origin. 2. No intracranial stenosis or area of occlusion is seen. Stenosis calculation for CTA are based on measurement of the distal internal carotid artery diameter in accordance with the NASCET methodology. Electronically signed by: Glen Holman MD (04/05/2019 3:44 PM) [facility]
--- NOTE | 2019-04-05 16:10 | PDOC1 ---
History and Physical Date of Admission Date of Admission DATE: 04/05/19 TIME: 15:57 Identification/Chief Complaint Chief Complaint slurred speech, left wrist pain and weakness Problems: (1) TIA (transient ischemic attack) Source Source: Caregiver, Patient History of Present Illness History of Present Illness 69 year old CM hx of CAD, HTN brought in by his because of slurred speech and left hand weakness and pain. Patient having lunch at home around 1:15 today and started to experience left wrist pain and weakness, clammy skin, and slurred speech along with difficulty swallowing. reports facial pain but no weakness. no change in vision or LE pain or weakness. patient's decided to take him to ER. while getting in the car patient states his legs felt weak. reports hx of stroke diagnosed on imaging in 2017 but no clinical deficits. known hx of CAD and HTN. compliant with meds. CT head in ED negative. BP stable in ED, 149/84. patient given ASA. hospitalist called for admission for TIA rule out Past Medical History Cardiovascular: CAD, HTN, [place], Hyperlipidemia Pulmonary: Pneumonia, Other CENTRAL NERVOUS SYSTEM: Dementia, Other GI: GERD, Other Heme/Onc: No pertinent hx Musculoskeletal: Osteoarthritis, Other Rheumatologic: No pertinent hx Infectious disease: No pertinent hx Renal/: No pertinent hx Endocrine: No pertinent hx Past Surgical History Past Surgical History: Arthroscopy, Other Family History Family History: Coronary Artery Disease, Stroke, Other Social History ALCOHOL: none Drugs: None Current Problem List Problem List Problems Medical Problems: (1) Elevated liver function tests Status: Acute (2) TIA (transient ischemic attack) Status: Acute Current Medications Current Medications Current Medications Aspirin (Children'S Aspirin) 243 mg 1X ONCE PO Last administered on 04/05/19at 14:47; Start 04/05/19 at 14:30; Stop 04/05/19 at 14:31; Status DC Iohexol (Omnipaque 350 Mg/ml) 75 ml 1X ONCE IV Last administered on 04/05/19at 15:17; Start 04/05/19 at 14:45; Stop 04/05/19 at 14:46; Status DC Info (CONTRAST GIVEN -- Rx MONITORING) 1 each PRN DAILY PRN MC SEE COMMENTS; Start 04/05/19 at 14:45; Stop 04/07/19 at 14:44 Active Scripts Active Reported Fluoxetine Hcl 20 Mg Capsule 20 Mg PO DAILY Ferrous Sulfate 325 Mg Tablet 325 Mg PO DAILY Lisinopril 2.5 Mg Tablet 2.5 Mg PO DAILY Carvedilol 3.125 Mg Tablet 3.125 Mg PO BIDWMEALS Vitamin D2 (Ergocalciferol (Vitamin D2)) 50,000 Unit Capsule 50,000 Unit PO QTH Pantoprazole Sodium 40 Mg Tablet.dr 40 Mg PO DAILY Atorvastatin Calcium 80 Mg Tablet 80 Mg PO DAILY Effient (Prasugrel Hcl) 10 Mg Tablet 10 Mg PO DAILY Allergies Allergies: Coded Allergies: niacin (Verified Allergy, Intermediate, 04/04/17) ROS Review of System CONSTITUTIONAL: No fever or chills EYES: No recent changes SKIN: No rash or itching CARDIOVASCULAR: No chest pain, syncope, palpitations, or edema RESPIRATORY: No SOB or cough GASTROINTESTINAL: No nausea, vomiting or abdominal pain NEUROLOGICAL: No headaches or weakness ENDOCRINE: No cold or heat intolerance GENITOURINARY: No urgency or frequency of urination MUSCULOSKELETAL: No back pain or joint pain LYMPHATICS: No enlarged lymph nodes PSYCHIATRIC: No anxiety or depression Physical Exam Physical Exam GENERAL: No apparent distress. Alert and oriented. HEENT: Head normocephalic, atraumatic. NECK: Supple LUNGS: Clear to auscultation. HEART: RRR, S1, S2 present, pulses intact ABDOMEN: Soft, positive bowel sounds. EXTREMITIES: No cyanosis or edema. NEUROLOGIC: slurred speech. normal strength upper and lower extremities Normal affect, normal mood. SKIN: No ulceration. Vitals Vitals Vital Signs Date Time Temp Pulse Resp B/P (MAP) Pulse Ox O2 Delivery O2 Flow Rate FiO2 04/05/19 15:32 56 17 04/05/19 15:22 100 04/05/19 13:57 98.8 149/64 (92) Room Air 98.8 Labs Labs Laboratory Tests Test 04/05/19 13:52 04/05/19 14:00 04/05/19 15:12 Glucose (Fingerstick) 127 mg/dL (70-99) White Blood Count 6.7 x10^3/uL (4.0-11.0) Red Blood Count 5.00 x10^6/uL (4.30-5.70) Hemoglobin 15.2 g/dL (13.0-17.5) Hematocrit 43.9 % (39.0-53.0) Mean Corpuscular Volume 88 fL (79-100) Mean Corpuscular Hemoglobin 30 pg (25-35) Mean Corpuscular Hemoglobin Concent 35 g/dL (31-37) Red Cell Distribution Width 14.0 % (11.5-14.5) Platelet Count 151 x10^3/uL (140-400) Prothrombin Time 15.2 SEC (11.7-14.0) Prothromb Time International Ratio 1.2 (0.8-1.1) Activated Partial Thromboplast Time 31 SEC (24-38) Sodium Level 146 mmol/L (136-145) Potassium Level 3.5 mmol/L (3.5-5.1) Chloride Level 109 mmol/L (98-107) Carbon Dioxide Level 26 mmol/L (21-32) Anion Gap 11 (6-14) Blood Urea Nitrogen 17 mg/dL (8-26) Creatinine 1.1 mg/dL (0.7-1.3) Estimated GFR (Cockcroft-Gault) 66.8 BUN/Creatinine Ratio 15 (6-20) Glucose Level 133 mg/dL (70-99) Calcium Level 8.6 mg/dL (8.5-10.1) Total Bilirubin 1.5 mg/dL (0.2-1.0) Aspartate Amino Transf (AST/SGOT) 19 U/L (15-37) Alanine Aminotransferase (ALT/SGPT) 26 U/L (16-63) Alkaline Phosphatase 119 U/L (46-116) Creatine Kinase 179 U/L (39-308) Troponin I Quantitative < 0.017 ng/mL (0.000-0.055) Total Protein 6.1 g/dL (6.4-8.2) Albumin 3.7 g/dL (3.4-5.0) Albumin/Globulin Ratio 1.5 (1.0-1.7) Urine Collection Type Unknown Urine Color Yellow Urine Clarity Clear Urine pH 7.0 Urine Specific Union 1.025 Urine Protein Negative mg/dL (NEG-TRACE) Urine Glucose (UA) Negative mg/dL (NEG) Urine Ketones (Stick) Negative mg/dL (NEG) Urine Blood Negative (NEG) Urine Nitrite Negative (NEG) Urine Bilirubin Negative (NEG) Urine Urobilinogen Dipstick 1.0 mg/dL (0.2 mg/dL) Urine Leukocyte Esterase Trace (NEG) Urine RBC 0 /HPF (0-2) Urine WBC Rare /HPF (0-4) Urine Squamous Epithelial Cells None /LPF Urine Bacteria 0 /HPF (0-FEW) Urine Mucus Slight /LPF Laboratory Tests Test 04/05/19 13:52 04/05/19 14:00 04/05/19 15:12 Glucose (Fingerstick) 127 mg/dL (70-99) White Blood Count 6.7 x10^3/uL (4.0-11.0) Red Blood Count 5.00 x10^6/uL (4.30-5.70) Hemoglobin 15.2 g/dL (13.0-17.5) Hematocrit 43.9 % (39.0-53.0) Mean Corpuscular Volume 88 fL (79-100) Mean Corpuscular Hemoglobin 30 pg (25-35) Mean Corpuscular Hemoglobin Concent 35 g/dL (31-37) Red Cell Distribution Width 14.0 % (11.5-14.5) Platelet Count 151 x10^3/uL (140-400) Prothrombin Time 15.2 SEC (11.7-14.0) Prothromb Time International Ratio 1.2 (0.8-1.1) Activated Partial Thromboplast Time 31 SEC (24-38) Sodium Level 146 mmol/L (136-145) Potassium Level 3.5 mmol/L (3.5-5.1) Chloride Level 109 mmol/L (98-107) Carbon Dioxide Level 26 mmol/L (21-32) Anion Gap 11 (6-14) Blood Urea Nitrogen 17 mg/dL (8-26) Creatinine 1.1 mg/dL (0.7-1.3) Estimated GFR (Cockcroft-Gault) 66.8 BUN/Creatinine Ratio 15 (6-20) Glucose Level 133 mg/dL (70-99) Calcium Level 8.6 mg/dL (8.5-10.1) Total Bilirubin 1.5 mg/dL (0.2-1.0) Aspartate Amino Transf (AST/SGOT) 19 U/L (15-37) Alanine Aminotransferase (ALT/SGPT) 26 U/L (16-63) Alkaline Phosphatase 119 U/L (46-116) Creatine Kinase 179 U/L (39-308) Troponin I Quantitative < 0.017 ng/mL (0.000-0.055) Total Protein 6.1 g/dL (6.4-8.2) Albumin 3.7 g/dL (3.4-5.0) Albumin/Globulin Ratio 1.5 (1.0-1.7) Urine Collection Type Unknown Urine Color Yellow Urine Clarity Clear Urine pH 7.0 Urine Specific Union 1.025 Urine Protein Negative mg/dL (NEG-TRACE) Urine Glucose (UA) Negative mg/dL (NEG) Urine Ketones (Stick) Negative mg/dL (NEG) Urine Blood Negative (NEG) Urine Nitrite Negative (NEG) Urine Bilirubin Negative (NEG) Urine Urobilinogen Dipstick 1.0 mg/dL (0.2 mg/dL) Urine Leukocyte Esterase Trace (NEG) Urine RBC 0 /HPF (0-2) Urine WBC Rare /HPF (0-4) Urine Squamous Epithelial Cells None /LPF Urine Bacteria 0 /HPF (0-FEW) Urine Mucus Slight /LPF VTE Prophylaxis Ordered VTE Prophylaxis Devices: Yes VTE Pharmacological Prophylaxi: Yes Assessment/Plan Assessment/Plan ASSESSMENT Slurred Speech/Left Wrist Pain and weakness suspect TIA HTN CAD/WA: 2 stents to RCA 11/2016 HLD Likely vascular dementia: increasing forgetfulness Family hx of hemorrhagic stroke (mother) and inguinal aneurysm (father) PLAN admit to cardiac tele bed neuro checks q4 hrs X 24hrs continue home meds including BP meds, statin, and Effient check MRI/MRA of brain check TTE dvt ppx: heparin sq full code anticipate dc shay if above work up negative. JOSE JUAN MARQUEZ MD Apr 05, 2019 16:10
[2019-04-05] MEDS: LISINOPRIL 5 MG TABLET. PO SCH (17:00)
[2019-04-05] MEDS: PRASUGREL 10 MG TABLET. PO SCH (17:00)
[2019-04-05] MEDS: PANTOPRAZOLE 40 MG TABLET.DR. PO SCH (17:00)
[2019-04-05] MEDS: CARVEDILOL 3.125 MG TABLET. PO SCH (17:00)
[2019-04-05] MEDS: FERROUS SULFATE 325 MG TABLET. PO SCH (17:00)
[2019-04-05] MEDS: FLUoxetine HCL 20 MG CAPSULE PO SCH (17:00)
[2019-04-05 19:16] VITALS: BP 130/85
--- NOTE | 2019-04-05 19:56 | PDOC2 ---
CONSULT Date of Consult Date of Consult DATE: 04/05/19 TIME: 19:54 Reason for Consult Reason for Consult: Slurry speech History of Present Illness Reason for Visit: This patient is 69-year-old man with past medical history of multiple medical problems history of coronary artery disease hypertension who was brought in with complaint of word-finding difficulty patient had some slurring of speech. P atient felt weakness and left side. Patient was having some numbness on his face. When patient presented he was having improvement in symptoms. Patient currently denies any focal extremity weakness chest pain shortness of breath dizziness. Past Medical History Cardiovascular: CAD, HTN, [place], Hyperlipidemia Pulmonary: Pneumonia, Other CENTRAL NERVOUS SYSTEM: Dementia, Other GI: GERD, Other Heme/Onc: No pertinent hx Musculoskeletal: Osteoarthritis, Other Rheumatologic: No pertinent hx Infectious disease: No pertinent hx Renal/: No pertinent hx Endocrine: No pertinent hx Past Surgical History Past Surgical History: Arthroscopy, Other Family History Family History: Coronary Artery Disease, Stroke, Other Social History ALCOHOL: none Drugs: None Lives: with Family Current Problem List Problem List Problems Medical Problems: (1) Elevated liver function tests Status: Acute (2) TIA (transient ischemic attack) Status: Acute Current Medications Current Medications Current Medications Aspirin (Children'S Aspirin) 243 mg 1X ONCE PO Last administered on 04/05/19at 14:47; Start 04/05/19 at 14:30; Stop 04/05/19 at 14:31; Status DC Iohexol (Omnipaque 350 Mg/ml) 75 ml 1X ONCE IV Last administered on 04/05/19at 15:17; Start 04/05/19 at 14:45; Stop 04/05/19 at 14:46; Status DC Info (CONTRAST GIVEN -- Rx MONITORING) 1 each PRN DAILY PRN MC SEE COMMENTS; Start 04/05/19 at 14:45; Stop 04/07/19 at 14:44 Carvedilol (Coreg) 3.125 mg BIDWMEALS PO ; Start 04/05/19 at 17:00 Ergocalciferol (Vitamin D2) 50,000 unit QTH PO ; Start 04/10/19 at 16:00 Ferrous Sulfate (Feosol) 325 mg DAILY PO ; Start 04/05/19 at 17:00 Fluoxetine HCl (PROzac) 20 mg DAILY PO ; Start 04/05/19 at 17:00 Pantoprazole Sodium (Protonix) 40 mg DAILYAC PO ; Start 04/05/19 at 17:00 Prasugrel (Effient) 10 mg DAILY PO ; Start 04/05/19 at 17:00 Atorvastatin Calcium (Lipitor) 80 mg QHS PO ; Start 04/05/19 at 21:00 Lisinopril (Prinivil) 2.5 mg DAILY PO ; Start 04/05/19 at 17:00 Heparin Sodium (Porcine) (Heparin Sodium) 5,000 unit Q8HRS SQ ; Start 04/05/19 at 22:00 Active Scripts Active Reported Fluoxetine Hcl 20 Mg Capsule 20 Mg PO DAILY Ferrous Sulfate 325 Mg Tablet 325 Mg PO DAILY Lisinopril 2.5 Mg Tablet 2.5 Mg PO DAILY Carvedilol (Carvedilol) 3.125 Mg Tablet 3.125 Mg PO BIDWMEALS Vitamin D2 (Ergocalciferol (Vitamin D2)) 50,000 Unit Capsule 50,000 Unit PO QTH Pantoprazole Sodium (Pantoprazole Sodium) 40 Mg Tablet.dr 40 Mg PO DAILY Atorvastatin Calcium 80 Mg Tablet 80 Mg PO DAILY Effient (Prasugrel Hcl) 10 Mg Tablet 10 Mg PO DAILY Allergies Allergies: Coded Allergies: niacin (Verified Allergy, Intermediate, 04/04/17) Physical Exam Physical Exam General no acute distress. HEENT: Normocephalic and atraumatic. NECK: Supple without bruit Respiratory: Clear to auscultation bilaterally Heart: Regular rate and rhythm, S1S2 normal NEUROLOGIC: Mental status Alert oriented. Cranial nerve equally reactive pupils, and intact extraocular movements. No facial asymmetry. Palate elevates and tongue protrudes in midline. Reflexes are 1-2 with flexor plantar responses. Coordination no dysmetria Strength able to move all exts equally. Sensory exam is intact for light touch and pinprick. Gait in bed. Vitals VITALS Vital Signs Date Time Temp Pulse Resp B/P (MAP) Pulse Ox O2 Delivery O2 Flow Rate FiO2 04/05/19 18:13 48 04/05/19 15:32 17 04/05/19 15:22 100 04/05/19 13:57 98.8 149/64 (92) Room Air 98.8 Labs Labs Laboratory Tests Test 04/05/19 13:52 04/05/19 14:00 04/05/19 15:12 Glucose (Fingerstick) 127 mg/dL (70-99) White Blood Count 6.7 x10^3/uL (4.0-11.0) Red Blood Count 5.00 x10^6/uL (4.30-5.70) Hemoglobin 15.2 g/dL (13.0-17.5) Hematocrit 43.9 % (39.0-53.0) Mean Corpuscular Volume 88 fL (79-100) Mean Corpuscular Hemoglobin 30 pg (25-35) Mean Corpuscular Hemoglobin Concent 35 g/dL (31-37) Red Cell Distribution Width 14.0 % (11.5-14.5) Platelet Count 151 x10^3/uL (140-400) Prothrombin Time 15.2 SEC (11.7-14.0) Prothromb Time International Ratio 1.2 (0.8-1.1) Activated Partial Thromboplast Time 31 SEC (24-38) Sodium Level 146 mmol/L (136-145) Potassium Level 3.5 mmol/L (3.5-5.1) Chloride Level 109 mmol/L (98-107) Carbon Dioxide Level 26 mmol/L (21-32) Anion Gap 11 (6-14) Blood Urea Nitrogen 17 mg/dL (8-26) Creatinine 1.1 mg/dL (0.7-1.3) Estimated GFR (Cockcroft-Gault) 66.8 BUN/Creatinine Ratio 15 (6-20) Glucose Level 133 mg/dL (70-99) Calcium Level 8.6 mg/dL (8.5-10.1) Total Bilirubin 1.5 mg/dL (0.2-1.0) Aspartate Amino Transf (AST/SGOT) 19 U/L (15-37) Alanine Aminotransferase (ALT/SGPT) 26 U/L (16-63) Alkaline Phosphatase 119 U/L (46-116) Creatine Kinase 179 U/L (39-308) Troponin I Quantitative < 0.017 ng/mL (0.000-0.055) Total Protein 6.1 g/dL (6.4-8.2) Albumin 3.7 g/dL (3.4-5.0) Albumin/Globulin Ratio 1.5 (1.0-1.7) Urine Collection Type Unknown Urine Color Yellow Urine Clarity Clear Urine pH 7.0 Urine Specific [place] 1.025 Urine Protein Negative mg/dL (NEG-TRACE) Urine Glucose (UA) Negative mg/dL (NEG) Urine Ketones (Stick) Negative mg/dL (NEG) Urine Blood Negative (NEG) Urine Nitrite Negative (NEG) Urine Bilirubin Negative (NEG) Urine Urobilinogen Dipstick 1.0 mg/dL (0.2 mg/dL) Urine Leukocyte Esterase Trace (NEG) Urine RBC 0 /HPF (0-2) Urine WBC Rare /HPF (0-4) Urine Squamous Epithelial Cells None /LPF Urine Bacteria 0 /HPF (0-FEW) Urine Mucus Slight /LPF Laboratory Tests Test 04/05/19 13:52 04/05/19 14:00 04/05/19 15:12 Glucose (Fingerstick) 127 mg/dL (70-99) White Blood Count 6.7 x10^3/uL (4.0-11.0) Red Blood Count 5.00 x10^6/uL (4.30-5.70) Hemoglobin 15.2 g/dL (13.0-17.5) Hematocrit 43.9 % (39.0-53.0) Mean Corpuscular Volume 88 fL (79-100) Mean Corpuscular Hemoglobin 30 pg (25-35) Mean Corpuscular Hemoglobin Concent 35 g/dL (31-37) Red Cell Distribution Width 14.0 % (11.5-14.5) Platelet Count 151 x10^3/uL (140-400) Prothrombin Time 15.2 SEC (11.7-14.0) Prothromb Time International Ratio 1.2 (0.8-1.1) Activated Partial Thromboplast Time 31 SEC (24-38) Sodium Level 146 mmol/L (136-145) Potassium Level 3.5 mmol/L (3.5-5.1) Chloride Level 109 mmol/L (98-107) Carbon Dioxide Level 26 mmol/L (21-32) Anion Gap 11 (6-14) Blood Urea Nitrogen 17 mg/dL (8-26) Creatinine 1.1 mg/dL (0.7-1.3) Estimated GFR (Cockcroft-Gault) 66.8 BUN/Creatinine Ratio 15 (6-20) Glucose Level 133 mg/dL (70-99) Calcium Level 8.6 mg/dL (8.5-10.1) Total Bilirubin 1.5 mg/dL (0.2-1.0) Aspartate Amino Transf (AST/SGOT) 19 U/L (15-37) Alanine Aminotransferase (ALT/SGPT) 26 U/L (16-63) Alkaline Phosphatase 119 U/L (46-116) Creatine Kinase 179 U/L (39-308) Troponin I Quantitative < 0.017 ng/mL (0.000-0.055) Total Protein 6.1 g/dL (6.4-8.2) Albumin 3.7 g/dL (3.4-5.0) Albumin/Globulin Ratio 1.5 (1.0-1.7) Urine Collection Type Unknown Urine Color Yellow Urine Clarity Clear Urine pH 7.0 Urine Specific [place] 1.025 Urine Protein Negative mg/dL (NEG-TRACE) Urine Glucose (UA) Negative mg/dL (NEG) Urine Ketones (Stick) Negative mg/dL (NEG) Urine Blood Negative (NEG) Urine Nitrite Negative (NEG) Urine Bilirubin Negative (NEG) Urine Urobilinogen Dipstick 1.0 mg/dL (0.2 mg/dL) Urine Leukocyte Esterase Trace (NEG) Urine RBC 0 /HPF (0-2) Urine WBC Rare /HPF (0-4) Urine Squamous Epithelial Cells None /LPF Urine Bacteria 0 /HPF (0-FEW) Urine Mucus Slight /LPF Assessment/Plan Assessment/Plan This patient is 69-year-old man with past medical history of multiple medical problems history of coronary artery disease hypertension who was brought in with complaint of word-finding difficulty patient had some slurring of speech. Patient felt weakness and left side. Patient was having some numbness on his face. When patient presented he was having improvement in symptoms. Patient currently denies any focal extremity weakness chest pain shortness of breath dizziness. This patient is 69-year-old man with past medical history of multiple medical problems history of hypertension coronary artery disease hyperlipidemia, memory problems, presented with a T IA symptoms. Will get further evaluation. Patient was started on aspirin for stroke prevention check lipid profile. Continue statin. PT OT evaluation. Check MRI of brain to evaluate for acute vascular etiology. CT scan done brain did not show any evidence of acute intracranial no evidence of acute hemorrhage or mass. Changes noted for chronic small vessel ischemic disease., 2-D echo with bubble study. Continue medical management. Plan discussed with patient in detail. Case discussed with the family members at bedside. Counseled: Patient, Regarding diagnosis, Regarding treatment, Regarding medications, Diet, Verbalized understanding. Thank you for allowing me to take part in this patient's care. Please not hesitate to contact me with questions. Transcribed using dictation device. The dictation could contain irregularities inherent in the voice to text conversion software, which may not be detected during the document review process. Please contact our office in case of any confusion or for any clarification, as needed. GENEVIEVE CHAPMAN MD Apr 05, 2019 19:56
[2019-04-05] MEDS: ATORVASTATIN CALCIUM 40 MG TABLET. PO SCH (21:34)
[2019-04-05] MEDS: HEPARIN for SUB-Q USE 5,000 UNIT/ML VIAL. SQ SCH (21:44)
[2019-04-05 23:50] VITALS: BP 120/75
[2019-04-06] VITALS (7 sets, daily range): BP systolic 93–148; BP diastolic 51–87
[2019-04-06] MEDS: HEPARIN for SUB-Q USE 5,000 UNIT/ML VIAL. SQ SCH ×3 (06:49→21:22)
[2019-04-06 07:25] LABS: CHOLESTEROL/HDL RATIO 2.9
[2019-04-06] MEDS: CARVEDILOL 3.125 MG TABLET. PO SCH ×2 (08:00→17:00)
[2019-04-06] MEDS: FERROUS SULFATE 325 MG TABLET. PO SCH (08:21)
[2019-04-06] MEDS: PRASUGREL 10 MG TABLET. PO SCH (08:21)
[2019-04-06] MEDS: LISINOPRIL 5 MG TABLET. PO SCH (08:22)
[2019-04-06] MEDS: PANTOPRAZOLE 40 MG TABLET.DR. PO SCH (08:22)
[2019-04-06] MEDS: FLUoxetine HCL 20 MG CAPSULE PO SCH (08:22)
[2019-04-06] MEDS: ASPIRIN ENTERIC COATED 81 MG TABLET.DR. PO SCH (08:32)
--- NOTE | 2019-04-06 10:59 | PDOC ---
PROGRESS NOTES History of Present Illness History of Present Illness VTE Prophylaxis Ordered VTE Prophylaxis Devices: Yes VTE Pharmacological Prophylaxi: Yes Assessment/Plan Assessment/Plan ASSESSMENT Slurred Speech/Left Wrist Pain and weakness suspect TIA HTN CAD/MT: 2 stents to RCA 11/2016 HLD Likely vascular dementia: increasing forgetfulness Family hx of hemorrhagic stroke (mother) and inguinal aneurysm (father) Mild to moderate atheromatous/atherosclerotic plaque formation seen involving both carotid bifurcations and proximal internal carotid arteries, right greater than left. A 60% stenosis is seen involving the proximal right internal carotid artery near its origin. PLAN tele bed neuro checks q4 hrs continue home meds including BP meds, statin, and Effient check MRI/MRA of brain, PENDING check TTE dvt ppx: heparin sq full code 38 MIN PT EXAM, CHART REVIEW, > 50% OF TIME SPENT WITH EXAM, CHART REVIEW, PT CARE COORDINATION Vitals Vitals Vital Signs Date Time Temp Pulse Resp B/P (MAP) Pulse Ox O2 Delivery O2 Flow Rate FiO2 04/06/19 08:24 51 04/06/19 08:24 140/86 04/06/19 07:46 97.8 18 96 Nasal Cannula 2.0 97.8 Physical Exam Lungs: Clear, Other Labs LABS INTERPRETATION Stress EKG Conclusion: Baseline EKG showed sinus rhythm with incomplete RBBB. No ischemic changes at peak stress. No arrhythmias. Imaging Protocol IMAGE PROTOCOL: Rest Tc-99m/stress Tc-99m 1 day Rest: Stress: Viability: Radiopharm. Tc99m Sestamibi Tc99m Sestamibi Dose 12mCi 33mCi Duration 13min. 13min. Img Date 09/24/2018 09/24/2018 Inj-Img Time 60min. 60min. Rest Admin Site: [employer] Employee: Ifeanyi Brito RT (R)(N) Stress Admin Site: [employer] Employee: Karla Doyle RT (R)(N) STRESS DATA End Diast. Vol. 101.0ml LVEDV index BSA 46.0ml End Syst. Vol. 36.0ml LVESV index BSA 16.0ml Myocardial Mass 143.0g Eject. Fraction 64.0% Stress Scores Regional WT 1.00 Summed WT 15.00 Regional WM 0.00 Summed WM 5.00 LV Perfusion Scintigraphic images showed small fixed defect involving the apical wall consistent with previous myocardial infarction without any significant reversibility. No other fixed or reversible defects seen. Wall Motion Normal left ventricle systolic function with ejection fraction calculated at 64%. LV Perf. Quant 17 Seg. SSS 6.00 17 Seg. SRS 9.00 17 Seg. SDS 0.00 Stress Defect Extent (% LAD) 0.00 Rest Defect Extent (% LAD) 0.60 Rev. Defect Extent (% LAD) 0.00 Stress Defect Extent (% LCX) 38.80 Rest Defect Extent (% LCX) 40.00 Rev. Defect Extent (% LCX) 0.00 Stress Defect Extent (% RCA) 0.00 Rest Defect Extent (% RCA) 4.40 Rev. Defect Extent (% RCA) 0.00 Stress Defect Extent (% PATRICE) 6.70 Rest Defect Extent (% PATRICE) 10.90 Rev. Defect Extent (% PATRICE) 0.00 Conclusion 1. Treadmill exercise cardioisotope stress test showed small apical wall infarct without any significant ischemia. 2. Normal left ventricular systolic function with ejection fraction calculated at 64%. 3. Low risk for cardiac events. Signed by : Erika Marti, Electronically Approved : 09/24/2018 11:36:18 DICTATED and SIGNED BY: ERIKA MARTI MD DATE: 09/24/18 1136 CTA of the head and neck with contrast 04/05/2019 Clinical history: Slurred speech with left upper extremity weakness. Technique: After the intravenous administration 75 cc of Omnipaque 350, contiguous, 0.625 mm axial sections were obtained through the upper chest, neck and head. Multiplanar 3-D MIP and volume rendered 3-D reconstructed images were obtained. One or more of the following individualized dose reduction techniques were utilized for this study: 1. Automated exposure control. 2. Adjustment of the mA and/or kV according to patient size. 3. Use of iterative reconstruction technique. Findings: Comparison is made to patient's CT scan of the head performed earlier today. Atherosclerotic calcification of the thoracic aortic arch and its branches is noted. The origins of the brachiocephalic, left common carotid and left subclavian arteries from the thoracic aortic arch are patent. The origin of the right common carotid artery and both vertebral arteries are patent. Mild to moderate atheromatous/atherosclerotic plaque formation is seen involving both carotid bifurcations and proximal internal carotid arteries, right greater than left. A 60% stenosis is seen involving the proximal right internal carotid artery near its origin. This measures 5 mm in length. No hemodynamically significant stenosis is seen involving the left carotid bifurcation or internal carotid artery. The right vertebral artery is slightly dominant. Both vertebral arteries demonstrate normal antegrade flow. Atherosclerotic calcification of the cavernous portions of both internal carotid arteries is seen. No definite area of stenosis is seen. Mild atheromatous plaque formation is seen involving the basilar artery. No area of stenosis is seen. Mild to moderate atheromatous plaque formation is seen involving anterior, middle and posterior cerebral arteries. No area of stenosis or occlusion is seen. No intracranial aneurysm is noted. The major dural venous sinuses are patent. No area of abnormal contrast enhancement is seen. No acute soft tissue abnormality is seen involving the neck. Degenerative changes are seen involving the uncovertebral and facet joints throughout the cervical disc spaces. IMPRESSION: 1. Mild to moderate atheromatous/atherosclerotic plaque formation seen involving both carotid bifurcations and proximal internal carotid arteries, right greater than left. A 60% stenosis is seen involving the proximal right internal carotid artery near its origin. 2. No intracranial stenosis or area of occlusion is seen. Stenosis calculation for CTA are based on measurement of the distal internal carotid artery diameter in accordance with the NASCET methodology. Electronically signed by: Carmina Holman MD (04/05/2019 3:44 PM) [facility] [place] DICTATED and SIGNED BY: CARMINA HOLMAN MD DATE: 04/05/19 1544 Laboratory Tests Test 04/05/19 13:52 04/05/19 14:00 04/05/19 15:12 04/06/19 06:15 Glucose (Fingerstick) 127 mg/dL (70-99) White Blood Count 6.7 x10^3/uL (4.0-11.0) Red Blood Count 5.00 x10^6/uL (4.30-5.70) Hemoglobin 15.2 g/dL (13.0-17.5) Hematocrit 43.9 % (39.0-53.0) Mean Corpuscular Volume 88 fL (79-100) Mean Corpuscular Hemoglobin 30 pg (25-35) Mean Corpuscular Hemoglobin Concent 35 g/dL (31-37) Red Cell Distribution Width 14.0 % (11.5-14.5) Platelet Count 151 x10^3/uL (140-400) Prothrombin Time 15.2 SEC (11.7-14.0) Prothromb Time International Ratio 1.2 (0.8-1.1) Activated Partial Thromboplast Time 31 SEC (24-38) Sodium Level 146 mmol/L (136-145) Potassium Level 3.5 mmol/L (3.5-5.1) Chloride Level 109 mmol/L (98-107) Carbon Dioxide Level 26 mmol/L (21-32) Anion Gap 11 (6-14) Blood Urea Nitrogen 17 mg/dL (8-26) Creatinine 1.1 mg/dL (0.7-1.3) Estimated GFR (Cockcroft-Gault) 66.8 BUN/Creatinine Ratio 15 (6-20) Glucose Level 133 mg/dL (70-99) Calcium Level 8.6 mg/dL (8.5-10.1) Total Bilirubin 1.5 mg/dL (0.2-1.0) Aspartate Amino Transf (AST/SGOT) 19 U/L (15-37) Alanine Aminotransferase (ALT/SGPT) 26 U/L (16-63) Alkaline Phosphatase 119 U/L (46-116) Creatine Kinase 179 U/L (39-308) Troponin I Quantitative < 0.017 ng/mL (0.000-0.055) Total Protein 6.1 g/dL (6.4-8.2) Albumin 3.7 g/dL (3.4-5.0) Albumin/Globulin Ratio 1.5 (1.0-1.7) Urine Collection Type Unknown Urine Color Yellow Urine Clarity Clear Urine pH 7.0 Urine Specific [place] 1.025 Urine Protein Negative mg/dL (NEG-TRACE) Urine Glucose (UA) Negative mg/dL (NEG) Urine Ketones (Stick) Negative mg/dL (NEG) Urine Blood Negative (NEG) Urine Nitrite Negative (NEG) Urine Bilirubin Negative (NEG) Urine Urobilinogen Dipstick 1.0 mg/dL (0.2 mg/dL) Urine Leukocyte Esterase Trace (NEG) Urine RBC 0 /HPF (0-2) Urine WBC Rare /HPF (0-4) Urine Squamous Epithelial Cells None /LPF Urine Bacteria 0 /HPF (0-FEW) Urine Mucus Slight /LPF Triglycerides Level 79 mg/dL (0-150) Cholesterol Level 83 mg/dL (0-200) LDL Cholesterol, Calculated 38 mg/dL (0-100) VLDL Cholesterol, Calculated 16 mg/dL (0-40) Non-HDL Cholesterol Calculated 54 mg/dL (0-129) HDL Cholesterol 29 mg/dL (40-60) Cholesterol/HDL Ratio 2.9 Assessment and Plan Assessmemt and Plan Problems Medical Problems: (1) Elevated liver function tests Status: Acute (2) TIA (transient ischemic attack) Status: Acute Comment Review of Relevant I have reviewed the following items cristi (where applicable) has been applied. Labs Laboratory Tests Test 04/05/19 13:52 04/05/19 14:00 04/05/19 15:12 04/06/19 06:15 Glucose (Fingerstick) 127 mg/dL (70-99) White Blood Count 6.7 x10^3/uL (4.0-11.0) Red Blood Count 5.00 x10^6/uL (4.30-5.70) Hemoglobin 15.2 g/dL (13.0-17.5) Hematocrit 43.9 % (39.0-53.0) Mean Corpuscular Volume 88 fL (79-100) Mean Corpuscular Hemoglobin 30 pg (25-35) Mean Corpuscular Hemoglobin Concent 35 g/dL (31-37) Red Cell Distribution Width 14.0 % (11.5-14.5) Platelet Count 151 x10^3/uL (140-400) Prothrombin Time 15.2 SEC (11.7-14.0) Prothromb Time International Ratio 1.2 (0.8-1.1) Activated Partial Thromboplast Time 31 SEC (24-38) Sodium Level 146 mmol/L (136-145) Potassium Level 3.5 mmol/L (3.5-5.1) Chloride Level 109 mmol/L (98-107) Carbon Dioxide Level 26 mmol/L (21-32) Anion Gap 11 (6-14) Blood Urea Nitrogen 17 mg/dL (8-26) Creatinine 1.1 mg/dL (0.7-1.3) Estimated GFR (Cockcroft-Gault) 66.8 BUN/Creatinine Ratio 15 (6-20) Glucose Level 133 mg/dL (70-99) Calcium Level 8.6 mg/dL (8.5-10.1) Total Bilirubin 1.5 mg/dL (0.2-1.0) Aspartate Amino Transf (AST/SGOT) 19 U/L (15-37) Alanine Aminotransferase (ALT/SGPT) 26 U/L (16-63) Alkaline Phosphatase 119 U/L (46-116) Creatine Kinase 179 U/L (39-308) Troponin I Quantitative < 0.017 ng/mL (0.000-0.055) Total Protein 6.1 g/dL (6.4-8.2) Albumin 3.7 g/dL (3.4-5.0) Albumin/Globulin Ratio 1.5 (1.0-1.7) Urine Collection Type Unknown Urine Color Yellow Urine Clarity Clear Urine pH 7.0 Urine Specific [place] 1.025 Urine Protein Negative mg/dL (NEG-TRACE) Urine Glucose (UA) Negative mg/dL (NEG) Urine Ketones (Stick) Negative mg/dL (NEG) Urine Blood Negative (NEG) Urine Nitrite Negative (NEG) Urine Bilirubin Negative (NEG) Urine Urobilinogen Dipstick 1.0 mg/dL (0.2 mg/dL) Urine Leukocyte Esterase Trace (NEG) Urine RBC 0 /HPF (0-2) Urine WBC Rare /HPF (0-4) Urine Squamous Epithelial Cells None /LPF Urine Bacteria 0 /HPF (0-FEW) Urine Mucus Slight /LPF Triglycerides Level 79 mg/dL (0-150) Cholesterol Level 83 mg/dL (0-200) LDL Cholesterol, Calculated 38 mg/dL (0-100) VLDL Cholesterol, Calculated 16 mg/dL (0-40) Non-HDL Cholesterol Calculated 54 mg/dL (0-129) HDL Cholesterol 29 mg/dL (40-60) Cholesterol/HDL Ratio 2.9 Laboratory Tests Test 04/05/19 13:52 04/05/19 14:00 04/05/19 15:12 04/06/19 06:15 Glucose (Fingerstick) 127 mg/dL (70-99) White Blood Count 6.7 x10^3/uL (4.0-11.0) Red Blood Count 5.00 x10^6/uL (4.30-5.70) Hemoglobin 15.2 g/dL (13.0-17.5) Hematocrit 43.9 % (39.0-53.0) Mean Corpuscular Volume 88 fL (79-100) Mean Corpuscular Hemoglobin 30 pg (25-35) Mean Corpuscular Hemoglobin Concent 35 g/dL (31-37) Red Cell Distribution Width 14.0 % (11.5-14.5) Platelet Count 151 x10^3/uL (140-400) Prothrombin Time 15.2 SEC (11.7-14.0) Prothromb Time International Ratio 1.2 (0.8-1.1) Activated Partial Thromboplast Time 31 SEC (24-38) Sodium Level 146 mmol/L (136-145) Potassium Level 3.5 mmol/L (3.5-5.1) Chloride Level 109 mmol/L (98-107) Carbon Dioxide Level 26 mmol/L (21-32) Anion Gap 11 (6-14) Blood Urea Nitrogen 17 mg/dL (8-26) Creatinine 1.1 mg/dL (0.7-1.3) Estimated GFR (Cockcroft-Gault) 66.8 BUN/Creatinine Ratio 15 (6-20) Glucose Level 133 mg/dL (70-99) Calcium Level 8.6 mg/dL (8.5-10.1) Total Bilirubin 1.5 mg/dL (0.2-1.0) Aspartate Amino Transf (AST/SGOT) 19 U/L (15-37) Alanine Aminotransferase (ALT/SGPT) 26 U/L (16-63) Alkaline Phosphatase 119 U/L (46-116) Creatine Kinase 179 U/L (39-308) Troponin I Quantitative < 0.017 ng/mL (0.000-0.055) Total Protein 6.1 g/dL (6.4-8.2) Albumin 3.7 g/dL (3.4-5.0) Albumin/Globulin Ratio 1.5 (1.0-1.7) Urine Collection Type Unknown Urine Color Yellow Urine Clarity Clear Urine pH 7.0 Urine Specific [place] 1.025 Urine Protein Negative mg/dL (NEG-TRACE) Urine Glucose (UA) Negative mg/dL (NEG) Urine Ketones (Stick) Negative mg/dL (NEG) Urine Blood Negative (NEG) Urine Nitrite Negative (NEG) Urine Bilirubin Negative (NEG) Urine Urobilinogen Dipstick 1.0 mg/dL (0.2 mg/dL) Urine Leukocyte Esterase Trace (NEG) Urine RBC 0 /HPF (0-2) Urine WBC Rare /HPF (0-4) Urine Squamous Epithelial Cells None /LPF Urine Bacteria 0 /HPF (0-FEW) Urine Mucus Slight /LPF Triglycerides Level 79 mg/dL (0-150) Cholesterol Level 83 mg/dL (0-200) LDL Cholesterol, Calculated 38 mg/dL (0-100) VLDL Cholesterol, Calculated 16 mg/dL (0-40) Non-HDL Cholesterol Calculated 54 mg/dL (0-129) HDL Cholesterol 29 mg/dL (40-60) Cholesterol/HDL Ratio 2.9 Medications Current Medications Aspirin (Children'S Aspirin) 243 mg 1X ONCE PO Last administered on 04/05/19at 14:47; Start 04/05/19 at 14:30; Stop 04/05/19 at 14:31; Status DC Iohexol (Omnipaque 350 Mg/ml) 75 ml 1X ONCE IV Last administered on 04/05/19at 15:17; Start 04/05/19 at 14:45; Stop 04/05/19 at 14:46; Status DC Info (CONTRAST GIVEN -- Rx MONITORING) 1 each PRN DAILY PRN MC SEE COMMENTS; Start 04/05/19 at 14:45; Stop 04/07/19 at 14:44 Carvedilol (Coreg) 3.125 mg BIDWMEALS PO ; Start 04/05/19 at 17:00 Ergocalciferol (Vitamin D2) 50,000 unit QTH PO ; Start 04/10/19 at 16:00 Ferrous Sulfate (Feosol) 325 mg DAILY PO Last administered on 04/06/19at 08:24; Start 04/05/19 at 17:00 Fluoxetine HCl (PROzac) 20 mg DAILY PO Last administered on 04/06/19at 08:24; Start 04/05/19 at 17:00 Pantoprazole Sodium (Protonix) 40 mg DAILYAC PO Last administered on 04/06/19at 08:24; Start 04/05/19 at 17:00 Prasugrel (Effient) 10 mg DAILY PO Last administered on 04/06/19at 08:24; Start 04/05/19 at 17:00 Atorvastatin Calcium (Lipitor) 80 mg QHS PO Last administered on 04/05/19at 21:44; Start 04/05/19 at 21:00 Lisinopril (Prinivil) 2.5 mg DAILY PO Last administered on 04/06/19at 08:24; Start 04/05/19 at 17:00 Heparin Sodium (Porcine) (Heparin Sodium) 5,000 unit Q8HRS SQ Last administered on 04/06/19at 06:49; Start 04/05/19 at 22:00 Aspirin (Ecotrin) 81 mg DAILYWBKFT PO Last administered on 04/06/19at 08:32; Start 04/06/19 at 09:00 Active Scripts Active Reported Fluoxetine Hcl 20 Mg Capsule 20 Mg PO DAILY Ferrous Sulfate 325 Mg Tablet 325 Mg PO DAILY Lisinopril 2.5 Mg Tablet 2.5 Mg PO DAILY Carvedilol (Carvedilol) 3.125 Mg Tablet 3.125 Mg PO BIDWMEALS Vitamin D2 (Ergocalciferol (Vitamin D2)) 50,000 Unit Capsule 50,000 Unit PO QTH Pantoprazole Sodium (Pantoprazole Sodium) 40 Mg Tablet.dr 40 Mg PO DAILY Atorvastatin Calcium 80 Mg Tablet 80 Mg PO DAILY Effient (Prasugrel Hcl) 10 Mg Tablet 10 Mg PO DAILY Vitals/I & O Vital Sign - Last 24 Hours 04/05/19 04/05/19 04/05/19 04/05/19 13:57 14:12 14:22 14:32 Temp 98.8 98.8 Pulse 64 66 64 58 Resp 18 18 19 18 B/P (MAP) 149/64 (92) Pulse Ox 99 100 100 O2 Delivery Room Air 04/05/19 04/05/19 04/05/19 04/05/19 14:42 15:02 15:12 15:22 Pulse 60 60 56 62 Resp 18 18 17 17 Pulse Ox 100 100 100 100 04/05/19 04/05/19 04/05/19 04/05/19 15:32 18:13 19:16 20:00 Temp 98.2 98.2 Pulse 56 48 59 Resp 17 18 B/P (MAP) 130/85 (100) Pulse Ox 93 O2 Delivery Nasal Cannula Room Air O2 Flow Rate 2.0 2.0 04/05/19 04/06/19 04/06/19 04/06/19 23:50 03:43 07:46 08:24 Temp 98.4 98.4 97.8 98.4 98.4 97.8 Pulse 57 58 55 55 Resp 18 18 18 B/P (MAP) 120/75 (90) 148/87 (107) 140/86 (104) 140/86 Pulse Ox 99 99 96 O2 Delivery Nasal Cannula Nasal Cannula Nasal Cannula O2 Flow Rate 2.0 2.0 2.0 04/06/19 08:24 Pulse 51 Intake and Output 0 04/05/19 04/05/19 04/06/19 14:59 22:59 06:59 Intake Total 240 ml 250 ml Output Total 200 ml Balance 240 ml 50 ml SUKHDEV BLAIR MD Apr 06, 2019 10:59
--- NOTE | 2019-04-06 14:23 | PDOC ---
PROGRESS NOTES Assessment Problems Medical Problems: (1) Elevated liver function tests Status: Acute (2) TIA (transient ischemic attack) Status: Acute Plan This patient is 69-year-old man with past medical history of multiple medical problems history of coronary artery disease hypertension who was brought in with complaint of word-finding difficulty patient had some slurring of speech. Patient felt weakness and left side. Patient was having some numbness on his face. When patient presented he was having improvement in symptoms. Patient currently denies any focal extremity weakness chest pain shortness of breath dizziness. This patient is 69-year-old man with past medical history of multiple medical problems history of hypertension coronary artery disease hyperlipidemia, memory problems, presented with a T IA symptoms. Will get further evaluation. Patient was started on aspirin for stroke prevention check lipid profile. Continue statin. PT OT evaluation. Check MRI of brain to evaluate for acute vascular etiology. CT scan done brain did not show any evidence of acute intracranial no evidence of acute hemorrhage or mass. Changes noted for chronic small vessel ischemic disease., 2-D echo with bubble study. Continue medical management. Plan discussed with patient in detail. Case discussed with the family members at bedside. Counseled: Patient, Regarding diagnosis, Regarding treatment, Regarding medications, Diet, Verbalized understanding. Thank you for allowing me to take part in this patient's care. Please not hesitate to contact me with questions. Subjective no acute events Objective Vital Signs Date Time Temp Pulse Resp B/P (MAP) Pulse Ox O2 Delivery O2 Flow Rate FiO2 04/06/19 11:02 97.7 53 18 122/75 (91) 97 Room Air 97.7 04/06/19 08:00 2.0 Intake and Output 04/06/19 07:00 Intake Total 490 ml Output Total 200 ml Balance 290 ml Intake Oral 490 ml Output Urine Total 200 ml PHYSICAL EXAM General no acute distress. HEENT: Normocephalic and atraumatic. NECK: Supple without bruit Respiratory: Clear to auscultation bilaterally Heart: Regular rate and rhythm, S1S2 normal NEUROLOGIC: Mental status Alert oriented. Cranial nerve equally reactive pupils, and intact extraocular movements. No facial asymmetry. Palate elevates and tongue protrudes in midline. Reflexes are 1-2 with flexor plantar responses. Coordination no dysmetria Strength able to move all exts equally. Sensory exam is intact for light touch and pinprick. Gait in bed. Review of Relevant I have reviewed the following items cristi (where applicable) has been applied. Labs Laboratory Tests Test 04/05/19 13:52 04/05/19 14:00 04/05/19 15:12 04/06/19 06:15 Glucose (Fingerstick) 127 mg/dL (70-99) White Blood Count 6.7 x10^3/uL (4.0-11.0) Red Blood Count 5.00 x10^6/uL (4.30-5.70) Hemoglobin 15.2 g/dL (13.0-17.5) Hematocrit 43.9 % (39.0-53.0) Mean Corpuscular Volume 88 fL (79-100) Mean Corpuscular Hemoglobin 30 pg (25-35) Mean Corpuscular Hemoglobin Concent 35 g/dL (31-37) Red Cell Distribution Width 14.0 % (11.5-14.5) Platelet Count 151 x10^3/uL (140-400) Prothrombin Time 15.2 SEC (11.7-14.0) Prothromb Time International Ratio 1.2 (0.8-1.1) Activated Partial Thromboplast Time 31 SEC (24-38) Sodium Level 146 mmol/L (136-145) Potassium Level 3.5 mmol/L (3.5-5.1) Chloride Level 109 mmol/L (98-107) Carbon Dioxide Level 26 mmol/L (21-32) Anion Gap 11 (6-14) Blood Urea Nitrogen 17 mg/dL (8-26) Creatinine 1.1 mg/dL (0.7-1.3) Estimated GFR (Cockcroft-Gault) 66.8 BUN/Creatinine Ratio 15 (6-20) Glucose Level 133 mg/dL (70-99) Calcium Level 8.6 mg/dL (8.5-10.1) Total Bilirubin 1.5 mg/dL (0.2-1.0) Aspartate Amino Transf (AST/SGOT) 19 U/L (15-37) Alanine Aminotransferase (ALT/SGPT) 26 U/L (16-63) Alkaline Phosphatase 119 U/L (46-116) Creatine Kinase 179 U/L (39-308) Troponin I Quantitative < 0.017 ng/mL (0.000-0.055) Total Protein 6.1 g/dL (6.4-8.2) Albumin 3.7 g/dL (3.4-5.0) Albumin/Globulin Ratio 1.5 (1.0-1.7) Urine Collection Type Unknown Urine Color Yellow Urine Clarity Clear Urine pH 7.0 Urine Specific [place] 1.025 Urine Protein Negative mg/dL (NEG-TRACE) Urine Glucose (UA) Negative mg/dL (NEG) Urine Ketones (Stick) Negative mg/dL (NEG) Urine Blood Negative (NEG) Urine Nitrite Negative (NEG) Urine Bilirubin Negative (NEG) Urine Urobilinogen Dipstick 1.0 mg/dL (0.2 mg/dL) Urine Leukocyte Esterase Trace (NEG) Urine RBC 0 /HPF (0-2) Urine WBC Rare /HPF (0-4) Urine Squamous Epithelial Cells None /LPF Urine Bacteria 0 /HPF (0-FEW) Urine Mucus Slight /LPF Triglycerides Level 79 mg/dL (0-150) Cholesterol Level 83 mg/dL (0-200) LDL Cholesterol, Calculated 38 mg/dL (0-100) VLDL Cholesterol, Calculated 16 mg/dL (0-40) Non-HDL Cholesterol Calculated 54 mg/dL (0-129) HDL Cholesterol 29 mg/dL (40-60) Cholesterol/HDL Ratio 2.9 Laboratory Tests Test 04/05/19 15:12 04/06/19 06:15 Urine Collection Type Unknown Urine Color Yellow Urine Clarity Clear Urine pH 7.0 Urine Specific [place] 1.025 Urine Protein Negative mg/dL (NEG-TRACE) Urine Glucose (UA) Negative mg/dL (NEG) Urine Ketones (Stick) Negative mg/dL (NEG) Urine Blood Negative (NEG) Urine Nitrite Negative (NEG) Urine Bilirubin Negative (NEG) Urine Urobilinogen Dipstick 1.0 mg/dL (0.2 mg/dL) Urine Leukocyte Esterase Trace (NEG) Urine RBC 0 /HPF (0-2) Urine WBC Rare /HPF (0-4) Urine Squamous Epithelial Cells None /LPF Urine Bacteria 0 /HPF (0-FEW) Urine Mucus Slight /LPF Triglycerides Level 79 mg/dL (0-150) Cholesterol Level 83 mg/dL (0-200) LDL Cholesterol, Calculated 38 mg/dL (0-100) VLDL Cholesterol, Calculated 16 mg/dL (0-40) Non-HDL Cholesterol Calculated 54 mg/dL (0-129) HDL Cholesterol 29 mg/dL (40-60) Cholesterol/HDL Ratio 2.9 Medications Current Medications Aspirin (Children'S Aspirin) 243 mg 1X ONCE PO Last administered on 04/05/19 14:47; Start 04/05/19 at 14:30; Stop 04/05/19 at 14:31; Status DC Iohexol (Omnipaque 350 Mg/ml) 75 ml 1X ONCE IV Last administered on 04/05/19at 15:17; Start 04/05/19 at 14:45; Stop 04/05/19 at 14:46; Status DC Info (CONTRAST GIVEN -- Rx MONITORING) 1 each PRN DAILY PRN MC SEE COMMENTS; Start 04/05/19 at 14:45; Stop 04/07/19 at 14:44 Carvedilol (Coreg) 3.125 mg BIDWMEALS PO ; Start 04/05/19 at 17:00 Ergocalciferol (Vitamin D2) 50,000 unit QTH PO ; Start 04/10/19 at 16:00 Ferrous Sulfate (Feosol) 325 mg DAILY PO Last administered on 04/06/19 08:24; Start 04/05/19 at 17:00 Fluoxetine HCl (PROzac) 20 mg DAILY PO Last administered on 04/06/19 08:24; Start 04/05/19 at 17:00 Pantoprazole Sodium (Protonix) 40 mg DAILYAC PO Last administered on 04/06/19 08:24; Start 04/05/19 at 17:00 Prasugrel (Effient) 10 mg DAILY PO Last administered on 04/06/19 08:24; Start 04/05/19 at 17:00 Atorvastatin Calcium (Lipitor) 80 mg QHS PO Last administered on 04/05/19 21:44; Start 04/05/19 at 21:00 Lisinopril (Prinivil) 2.5 mg DAILY PO Last administered on 04/06/19 08:24; Start 04/05/19 at 17:00 Heparin Sodium (Porcine) (Heparin Sodium) 5,000 unit Q8HRS SQ Last administered on 04/06/19 06:49; Start 04/05/19 at 22:00 Aspirin (Ecotrin) 81 mg DAILYWBKFT PO Last administered on 04/06/19 08:32; S tart 04/06/19 at 09:00 Active Scripts Active Reported Fluoxetine Hcl 20 Mg Capsule 20 Mg PO DAILY Ferrous Sulfate 325 Mg Tablet 325 Mg PO DAILY Lisinopril 2.5 Mg Tablet 2.5 Mg PO DAILY Carvedilol (Carvedilol) 3.125 Mg Tablet 3.125 Mg PO BIDWMEALS Vitamin D2 (Ergocalciferol (Vitamin D2)) 50,000 Unit Capsule 50,000 Unit PO QTH Pantoprazole Sodium (Pantoprazole Sodium) 40 Mg Tablet.dr 40 Mg PO DAILY Atorvastatin Calcium 80 Mg Tablet 80 Mg PO DAILY Effient (Prasugrel Hcl) 10 Mg Tablet 10 Mg PO DAILY Vitals/I & O Vital Sign - Last 24 Hours 04/05/19 04/05/19 04/05/19 04/05/19 14:32 14:42 15:02 15:12 Pulse 58 60 60 56 Resp 18 18 18 17 Pulse Ox 100 100 100 100 04/05/19 04/05/19 04/05/19 04/05/19 15:22 15:32 18:13 19:16 Temp 98.2 98.2 Pulse 62 56 48 59 Resp 17 17 18 B/P (MAP) 130/85 (100) Pulse Ox 100 93 O2 Delivery Nasal Cannula O2 Flow Rate 2.0 04/05/19 04/05/19 04/06/19 04/06/19 20:00 23:50 03:43 07:46 Temp 98.4 98.4 97.8 98.4 98.4 97.8 Pulse 57 58 55 Resp 18 18 18 B/P (MAP) 120/75 (90) 148/87 (107) 140/86 (104) Pulse Ox 99 99 96 O2 Delivery Room Air Nasal Cannula Nasal Cannula Nasal Cannula O2 Flow Rate 2.0 2.0 2.0 2.0 04/06/19 04/06/19 04/06/19 04/06/19 08:00 08:24 08:24 11:02 Temp 97.7 97.7 Pulse 55 51 53 Resp 18 B/P (MAP) 140/86 122/75 (91) Pulse Ox 97 O2 Delivery Room Air Room Air O2 Flow Rate 2.0 Intake and Output 04/05/19 04/05/19 04/06/19 15:00 23:00 07:00 Intake Total 240 ml 250 ml Output Total 200 ml Balance 240 ml 50 ml GENEVIEVE CHAPMAN MD Apr 06, 2019 14:23
--- NOTE | 2019-04-06 15:33 | PDOC2 ---
CARDIOLOGY CONSULT NOTE CHEIF COMPLAINT: Difficulty with speech HPI: 69-year-old man well-known to our office comes into the hospital in the setting of a possible TIA. Current workup is ongoing. Cardiology consultation for bradycardia. Patient was seen in the office 2 weeks ago and did not have any acute cardiac issues. He does not have any specific cardiac limitations currently such as chest pain or dyspnea. No syncope or palpitations. PMHX: Coronary artery disease with cardiac arrest status post PCI �2 to the RCA in 2017 #2 hypertension #3 dyslipidemia SOCHX: He is . No alcohol, tobacco or illicit drug use. He's had some recent deaths in the family which is cause some stress. FAMHX: Noncontributory CURRENT MEDS: Current Medications Medications (Trade) Dose Ordered Sig/Glynn Route PRN Reason Start Time Stop Time Status Last Admin Dose Admin Ferrous Sulfate (Feosol) 325 mg DAILY PO 04/05/19 17:00 04/06/19 08:24 Fluoxetine HCl (PROzac) 20 mg DAILY PO 04/05/19 17:00 04/06/19 08:24 Pantoprazole Sodium (Protonix) 40 mg DAILYAC PO 04/05/19 17:00 04/06/19 08:24 Prasugrel (Effient) 10 mg DAILY PO 04/05/19 17:00 04/06/19 08:24 Atorvastatin Calcium (Lipitor) 80 mg QHS PO 04/05/19 21:00 04/05/19 21:44 Lisinopril (Prinivil) 2.5 mg DAILY PO 04/05/19 17:00 04/06/19 08:24 Heparin Sodium (Porcine) (Heparin Sodium) 5,000 unit Q8HRS SQ 04/05/19 22:00 04/06/19 06:49 Aspirin (Ecotrin) 81 mg DAILYWBKFT PO 04/06/19 09:00 04/06/19 08:32 ALLERGIES: Allergies Coded Allergies Type Severity Reaction Last Updated Verified niacin Allergy Intermediate 04/04/17 Yes ROS: Negative for 10 out of 14 systems reviewed unless otherwise mentioned above in history of present illness PHYSICAL EXAM: Vital Signs/I&O: Vital Signs Date Time Temp Pulse Resp B/P (MAP) Pulse Ox O2 Delivery O2 Flow Rate FiO2 04/06/19 11:02 97.7 53 18 122/75 (91) 97 Room Air 97.7 8/11/19 08:00 2.0 I & O 04/05/19 04/05/19 04/06/19 15:00 23:00 07:00 Intake Total 240 ml 250 ml Output Total 200 ml Balance 240 ml 50 ml Physical Exam: GEN.: No apparent distress. Alert and oriented. HEENT: Head is normocephalic, atraumatic NECK: Supple. LUNGS: Clear to auscultation. HEART: RRR, S1, S2 present. Peripheral pulses intact ABDOMEN: Soft, nontender. Positive bowel sounds. EXTREMITIES: Without any cyanosis. NEUROLOGIC: Normal speech, normal tone PSYCHIATRIC: Normal affect, normal mood. SKIN: No ulcerations DIAGNOSTIC TESTING: Cardiac enzymes, CBC, compress of metabolic panel are unremarkable. CT scan of the head and neck demonstrates a moderate 60% stenosis involving the right internal carotid artery. Telemetry reveals sinus bradycardia. No obvious other arrhythmias noted Lab Laboratory Tests Test 04/06/19 06:15 Cholesterol Level 83 mg/dL (0-200) LDL Cholesterol, Calculated 38 mg/dL (0-100) VLDL Cholesterol, Calculated 16 mg/dL (0-40) Non-HDL Cholesterol Calculated 54 mg/dL (0-129) Cholesterol/HDL Ratio 2.9 ASSESSMENT: 1. Sinus bradycardia 2. Possible TIA 3. Mild to moderate peripheral arterial disease with a approximate 60% right internal carotid artery stenosis 4. Known coronary artery disease status post PCI to the RCA in 2017 5. Hypertension. Currently well controlled 6. Mild dyslipidemia currently well controlled on atorvastatin therapy PLAN: 1. Continue current neurologic workup. No further cardiovascular input at this time. This does not appear to be a cardiac etiology. He does have a slower heart rate but he has appropriate chronotropic response in light of this have low suspicion the bradycardia may let any symptoms. Nonetheless, if the neurologic workup is completely unremarkable with may consider outpatient event recording. Agree with the bubble study as ordered. Thank you for this consultation. Please call with questions. ALEKSANDR LUJAN MD Apr 06, 2019 15:33
--- NOTE | 2019-04-06 16:37 | RAD ---
MRI BRAIN WITHOUT CONTRAST History: TIA, slurred speech with left upper extremity weakness. Comparison: CT head without contrast, prior day. Technique: Multiplanar multiple pulse sequence images of the brain were obtained without contrast. Findings: Tiny foci of restricted diffusion, one in the right parietal lobe and the other in the left frontal lobe. Etiology is probably embolic given different vascular distributions. Third tiny focus of increased signal on the diffusion-weighted images does not have a correlate on the ADC map. There are a few foci of T2 and FLAIR hyperintensity in the supratentorial white matter. Mild generalized cerebral atrophy. There is no midline shift or mass effect. No extra-axial fluid collection or evidence of intraparenchymal hemorrhage. Visualized vascular flow voids are intact. Globes and orbits are normal. Mucosal thickening bilateral ethmoid sinuses. No air-fluid level. Paranasal sinuses otherwise clear. The mastoid air cells are clear. IMPRESSION: 1. There are 2 tiny acute infarcts, one in the right parietal lobe and the other in the left frontal lobe. 2. Mild supratentorial white matter changes probably due to chronic small vessel ischemic disease. 3. Mild generalized cerebral atrophy. Findings discussed with patient's nurse on 6 S. at 04/06/2019 4:34 PM. FOR INTERNAL CODING PURPOSES Critical result: RESULT CODE: (C) Electronically signed by: Sancho Casillas MD (04/06/2019 4:34 PM) [facility]
--- NOTE | 2019-04-06 16:44 | RAD ---
MRA OF THE NECK WITHOUT CONTRAST Clinical Indication: TIA Comparison: CT angiogram head and neck with contrast, prior day. Technique: Multisequential imaging of the neck was performed, without IV contrast and maximum intensity projection was performed for an MRA of the neck with and without contrast. PQRS Compliance Statement - Stenosis calculations for CT, MR and conventional angiography are based upon measurement of the distal ICA diameter in accordance with the NASCET methodology. Stenosis calculations for carotid ultrasound studies are derived from validated velocity criteria which are known to correlate with the NASCET methodology. Findings: Exam is limited due to noncontrast technique. Common carotid arteries are patent. There is a stenosis of the proximal right internal carotid artery near its origin, better evaluated on the CTA. The cervical left internal carotid artery is patent although there is artifact at its origin that limits evaluation. The cervical vertebral arteries are patent, proximal portions are obscured. Impression: There is stenosis of the proximal right internal carotid artery, better evaluated on CTA. Electronically signed by: Sancho Casillas MD (04/06/2019 4:42 PM) [facility]
[2019-04-06] MEDS: ATORVASTATIN CALCIUM 40 MG TABLET. PO SCH (21:20)
[2019-04-07 03:54] VITALS: BP 95/57
[2019-04-07] MEDS: HEPARIN for SUB-Q USE 5,000 UNIT/ML VIAL. SQ SCH ×2 (06:00→14:00)
[2019-04-07 07:00] VITALS: BP 152/83
[2019-04-07] MEDS: CARVEDILOL 3.125 MG TABLET. PO SCH ×2 (08:00→17:00)
[2019-04-07] MEDS: FERROUS SULFATE 325 MG TABLET. PO SCH (08:36)
[2019-04-07] MEDS: PRASUGREL 10 MG TABLET. PO SCH (08:37)
[2019-04-07] MEDS: PANTOPRAZOLE 40 MG TABLET.DR. PO SCH (08:37)
[2019-04-07] MEDS: ASPIRIN ENTERIC COATED 81 MG TABLET.DR. PO SCH (08:37)
[2019-04-07] MEDS: FLUoxetine HCL 20 MG CAPSULE PO SCH (08:39)
--- NOTE | 2019-04-07 09:21 | EKG ---
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
--- NOTE | 2019-04-07 09:30 | NUR ---
SW following pt for anticipated dc needs. Chart reviewed and discussed with RN. Pt is from home and Cardiology is following. Pt does not have PT/OT needs at this time. No SW needs noted at this time.
--- NOTE | 2019-04-07 10:43 | PDOC ---
PROGRESS NOTES History of Present Illness History of Present Illness VTE Prophylaxis Ordered VTE Prophylaxis Devices: Yes VTE Pharmacological Prophylaxi: Yes Assessment/Plan Assessment/Plan ASSESSMENT Slurred Speech/Left Wrist Pain and weakness suspect TIA HTN CAD/AK: 2 stents to RCA 11/2016 HLD Likely vascular dementia: increasing forgetfulness Family hx of hemorrhagic stroke (mother) and inguinal aneurysm (father) Mild to moderate atheromatous/atherosclerotic plaque formation seen involving both carotid bifurcations and proximal internal carotid arteries, right greater than left. A 60% stenosis is seen involving the proximal right internal carotid artery near its origin. The interatrial septum is intact with no evidence for an atrial septal defect or patent foramen ovale as noted on 2-D or Doppler imaging. 04/07 ON ECHO 2 NEW tiny acute infarcts, one in the right parietal lobe and the other in the left frontal lobe. PLAN tele bed neuro checks q4 hrs continue home meds including BP meds, statin, and Effient check MRI/MRA of brain, PENDING TTE REVIEWED dvt ppx: heparin sq full code 27 MIN PT EXAM, CHART REVIEW, > 50% OF TIME SPENT WITH EXAM, CHART REVIEW, PT CARE COORDINATION Vitals Vitals Vital Signs Date Time Temp Pulse Resp B/P (MAP) Pulse Ox O2 Delivery O2 Flow Rate FiO2 04/07/19 07:00 97.5 61 16 152/83 (106) 98 Room Air 97.5 04/07/19 03:54 2.0 Physical Exam Physical Exam HEENT: Head normocephalic, atraumatic. NECK: Supple LUNGS: Clear to auscultation. HEART: RRR, S1, S2 present, pulses intact ABDOMEN: Soft, positive bowel sounds. EXTREMITIES: No cyanosis or edema. NEUROLOGIC: slurred speech. normal strength upper and lower extremities Normal affect, normal mood. SKIN: No ulceration. General: Alert, Cooperative, No acute distress Lungs: Clear, Other Abdomen: Soft Extremities: No cyanosis, No edema Labs LABS MRI BRAIN WITHOUT CONTRAST History: TIA, slurred speech with left upper extremity weakness. Comparison: CT head without contrast, prior day. Technique: Multiplanar multiple pulse sequence images of the brain were obtained without contrast. Findings: Tiny foci of restricted diffusion, one in the right parietal lobe and the other in the left frontal lobe. Etiology is probably embolic given different vascular distributions. Third tiny focus of increased signal on the diffusion-weighted images does not have a correlate on the ADC map. There are a few foci of T2 and FLAIR hyperintensity in the supratentorial white matter. Mild generalized cerebral atrophy. There is no midline shift or mass effect. No extra-axial fluid collection or evidence of intraparenchymal hemorrhage. Visualized vascular flow voids are intact. Globes and orbits are normal. Mucosal thickening bilateral ethmoid sinuses. No air-fluid level. Paranasal sinuses otherwise clear. The mastoid air cells are clear. IMPRESSION: 1. There are 2 tiny acute infarcts, one in the right parietal lobe and the other in the left frontal lobe. 2. Mild supratentorial white matter changes probably due to chronic small vessel ischemic disease. 3. Mild generalized cerebral atrophy. APPROVED REPORT EXAM: Two-dimensional and M-mode echocardiogram with Doppler and color Doppler. Other Information Quality : Good INDICATION CVA/TIA Echo Enhancing Agent Agent/Amount Used: Agitated Saline 8mL 2D DIMENSIONS RVDd 2.4 (2.9-3.5cm) Left Atrium(2D) 3.8 (1.6-4.0cm) IVSd 0.9 (0.7-1.1cm) Aortic Root(2D) 2.8 (2.0-3.7cm) LVDd 5.7 (3.9-5.9cm) LVOT Diameter 2.4 (1.8-2.4cm) PWd 0.9 (0.7-1.1cm) LVDs 3.7 (2.5-4.0cm) FS (%) 34.0 % SV 98.0 ml LVEF(%) 62.3 (>50%) Aortic Valve AoV Peak Eliud. 113.2cm/s AoV VTI 21.9cm AO Peak GR. 5.1mmHg LVOT Peak Eliud. 112.0cm/s AO Mean GR. 3mmHg MARCO (VMAX) 4.40cm2 MARCO (VTI) 4.90cm2 Mitral Valve MV E Velocity 56.0cm/s MV DECEL TIME 212ms MV A Velocity 62.9cm/s E/A Ratio 0.9 Tricuspid Valve TR P. Velocity 254cm/s RAP ESTIMATE 3mmHg TR Peak Gr. 26mmHg RVSP 29mmHg Pulmonary Vein S1 Velocity 63.3cm/s D2 Velocity 43.1cm/s LEFT VENTRICLE The left ventricle is normal size. There is normal left ventricular wall thic kness. The left ventricular systolic function is normal and the ejection fraction is within normal range. The Ejection Fraction is 55-60%. There is normal LV segmental wall motion. Transmitral Doppler flow pattern is Grade I- abnormal relaxation pattern. RIGHT VENTRICLE The right ventricle is normal size. The right ventricular systolic function is normal. ATRIA The left atrium size is normal. The right atrium size is normal. The interatrial septum is intact with no evidence for an atrial septal defect or patent foramen ovale as noted on 2-D or Doppler imaging. Injection of bubbles documented no interatrial shunt. AORTIC VALVE The aortic valve is calcified but opens well. Doppler and Color Flow revealed trace aortic regurgitation. There is no significant aortic valvular stenosis. MITRAL VALVE The mitral valve is calcified but opens well. There is no evidence of mitral valve prolapse. There is no mitral valve stenosis. Doppler and Color-flow revealed trace mitral regurgitation. TRICUSPID VALVE The tricuspid valve is normal in structure and function. Doppler and Color Flow revealed trace tricuspid regurgitation. The PA pressure was estimated at 29 mmHg. There is no tricuspid valve stenosis. PULMONIC VALVE The pulmonic valve is not well visualized. Doppler and Color Flow revealed no pulmonic valvular regurgitation. There is no pulmonic valvular stenosis. GREAT VESSELS The aortic root is normal in size. The ascending aorta is mildly dilated at 3.5 cm. The IVC is normal in size and collapses >50% with inspiration. PERICARDIAL EFFUSION There is no evidence of significant pericardial effusion. Critical Notification Critical Value: No <Conclusion> The left ventricle is normal size. The left ventricular systolic function is normal and the ejection fraction is within normal range. The Ejection Fraction is 55-60%. The interatrial septum is intact with no evidence for an atrial septal defect or patent foramen ovale as noted on 2-D or Doppler imaging. Injection of bubbles documented no interatrial shunt. There is no significant aortic valvular stenosis. Doppler and Color Flow revealed trace aortic regurgitation. Doppler and Color-flow revealed trace mitral regurgitation. Doppler and Color Flow revealed trace tricuspid regurgitation. The PA pressure was estimated at 29 mmHg. Signed by : Lacie Rogers MD Electronically Approved : 04/07/2019 11:50:50 DICTATED and SIGNED BY: LACIE ROGERS MD DATE: 04/07/19 115 Assessment and Plan Assessmemt and Plan Problems Medical Problems: (1) Elevated liver function tests Status: Acute (2) TIA (transient ischemic attack) Status: Acute Comment Review of Relevant I have reviewed the following items cristi (where applicable) has been applied. Labs Laboratory Tests Test 04/05/19 13:52 04/05/19 14:00 04/05/19 15:12 04/06/19 06:15 Glucose (Fingerstick) 127 mg/dL (70-99) White Blood Count 6.7 x10^3/uL (4.0-11.0) Red Blood Count 5.00 x10^6/uL (4.30-5.70) Hemoglobin 15.2 g/dL (13.0-17.5) Hematocrit 43.9 % (39.0-53.0) Mean Corpuscular Volume 88 fL (79-100) Mean Corpuscular Hemoglobin 30 pg (25-35) Mean Corpuscular Hemoglobin Concent 35 g/dL (31-37) Red Cell Distribution Width 14.0 % (11.5-14.5) Platelet Count 151 x10^3/uL (140-400) Prothrombin Time 15.2 SEC (11.7-14.0) Prothromb Time International Ratio 1.2 (0.8-1.1) Activated Partial Thromboplast Time 31 SEC (24-38) Sodium Level 146 mmol/L (136-145) Potassium Level 3.5 mmol/L (3.5-5.1) Chloride Level 109 mmol/L (98-107) Carbon Dioxide Level 26 mmol/L (21-32) Anion Gap 11 (6-14) Blood Urea Nitrogen 17 mg/dL (8-26) Creatinine 1.1 mg/dL (0.7-1.3) Estimated GFR (Cockcroft-Gault) 66.8 BUN/Creatinine Ratio 15 (6-20) Glucose Level 133 mg/dL (70-99) Calcium Level 8.6 mg/dL (8.5-10.1) Total Bilirubin 1.5 mg/dL (0.2-1.0) Aspartate Amino Transf (AST/SGOT) 19 U/L (15-37) Alanine Aminotransferase (ALT/SGPT) 26 U/L (16-63) Alkaline Phosphatase 119 U/L (46-116) Creatine Kinase 179 U/L (39-308) Troponin I Quantitative < 0.017 ng/mL (0.000-0.055) Total Protein 6.1 g/dL (6.4-8.2) Albumin 3.7 g/dL (3.4-5.0) Albumin/Globulin Ratio 1.5 (1.0-1.7) Urine Collection Type Unknown Urine Color Yellow Urine Clarity Clear Urine pH 7.0 Urine Specific Weems 1.025 Urine Protein Negative mg/dL (NEG-TRACE) Urine Glucose (UA) Negative mg/dL (NEG) Urine Ketones (Stick) Negative mg/dL (NEG) Urine Blood Negative (NEG) Urine Nitrite Negative (NEG) Urine Bilirubin Negative (NEG) Urine Urobilinogen Dipstick 1.0 mg/dL (0.2 mg/dL) Urine Leukocyte Esterase Trace (NEG) Urine RBC 0 /HPF (0-2) Urine WBC Rare /HPF (0-4) Urine Squamous Epithelial Cells None /LPF Urine Bacteria 0 /HPF (0-FEW) Urine Mucus Slight /LPF Triglycerides Level 79 mg/dL (0-150) Cholesterol Level 83 mg/dL (0-200) LDL Cholesterol, Calculated 38 mg/dL (0-100) VLDL Cholesterol, Calculated 16 mg/dL (0-40) Non-HDL Cholesterol Calculated 54 mg/dL (0-129) HDL Cholesterol 29 mg/dL (40-60) Cholesterol/HDL Ratio 2.9 Medications Current Medications Aspirin (Children'S Aspirin) 243 mg 1X ONCE PO Last administered on 04/05/19at 14:47; Start 04/05/19 at 14:30; Stop 04/05/19 at 14:31; Status DC Iohexol (Omnipaque 350 Mg/ml) 75 ml 1X ONCE IV Last administered on 04/05/19at 15:17; Start 04/05/19 at 14:45; Stop 04/05/19 at 14:46; Status DC Info (CONTRAST GIVEN -- Rx MONITORING) 1 each PRN DAILY PRN MC SEE COMMENTS; Start 04/05/19 at 14:45; Stop 04/07/19 at 14:44 Carvedilol (Coreg) 3.125 mg BIDWMEALS PO ; Start 04/05/19 at 17:00 Ergocalciferol (Vitamin D2) 50,000 unit QTH PO ; Start 04/10/19 at 16:00 Ferrous Sulfate (Feosol) 325 mg DAILY PO Last administered on 04/07/19 08:39; Start 04/05/19 at 17:00 Fluoxetine HCl (PROzac) 20 mg DAILY PO Last administered on 04/07/19 08:39; Start 04/05/19 at 17:00 Pantoprazole Sodium (Protonix) 40 mg DAILYAC PO Last administered on 04/07/19 08:39; Start 04/05/19 at 17:00 Prasugrel (Effient) 10 mg DAILY PO Last administered on 04/07/19 08:39; Start 04/05/19 at 17:00 Atorvastatin Calcium (Lipitor) 80 mg QHS PO Last administered on 04/06/19 21:23; Start 04/05/19 at 21:00 Lisinopril (Prinivil) 2.5 mg DAILY PO Last administered on 04/06/19 08:24; Start 04/05/19 at 17:00 Heparin Sodium (Porcine) (Heparin Sodium) 5,000 unit Q8HRS SQ Last administered on 04/06/19 21:23; Start 04/05/19 at 22:00 Aspirin (Ecotrin) 81 mg DAILYWBKFT PO Last administered on 04/07/19 08:39; Start 04/06/19 at 09:00 Active Scripts Active Reported Fluoxetine Hcl 20 Mg Capsule 20 Mg PO DAILY Ferrous Sulfate 325 Mg Tablet 325 Mg PO DAILY Lisinopril 2.5 Mg Tablet 2.5 Mg PO DAILY Carvedilol (Carvedilol) 3.125 Mg Tablet 3.125 Mg PO BIDWMEALS Vitamin D2 (Ergocalciferol (Vitamin D2)) 50,000 Unit Capsule 50,000 Unit PO QTH Pantoprazole Sodium (Pantoprazole Sodium) 40 Mg Tablet.dr 40 Mg PO DAILY Atorvastatin Calcium 80 Mg Tablet 80 Mg PO DAILY Effient (Prasugrel Hcl) 10 Mg Tablet 10 Mg PO DAILY Vitals/I & O Vital Sign - Last 24 Hours 04/06/19 04/06/19 04/06/19 04/06/19 11:02 16:05 17:59 19:19 Temp 97.7 97.6 98.3 97.7 97.6 98.3 Pulse 53 53 56 63 Resp 18 18 18 B/P (MAP) 122/75 (91) 142/77 (98) 104/ Pulse Ox 97 99 96 O2 Delivery Room Air Room Air Nasal Cannula O2 Flow Rate 2.0 04/06/19 04/06/19 04/07/19 04/07/19 20:00 23:43 03:54 07:00 Temp 98.1 97.8 97.5 98.1 97.8 97.5 Pulse 60 60 61 Resp 18 18 16 B/P (MAP) 93/51 (65) 95/57 (70) 152/83 (106) Pulse Ox 96 96 98 O2 Delivery Room Air Nasal Cannula Nasal Cannula Room Air O2 Flow Rate 2.0 2.0 Intake and Output 04/06/19 04/06/19 04/07/19 15:00 23:00 07:00 Intake Total 120 ml 100 ml Balance 120 ml 100 ml SUKHDEV BLAIR MD Apr 07, 2019 10:43
[2019-04-07 11:46] VITALS: BP 130/76
--- NOTE | 2019-04-07 11:51 | CARD ---
MR#: [id number] Date of Study: 04/07/2019 Ordering Physician: GENEVIEVE CHAPMAN, Referring Physician: Dileep BRYSON: Jeanette Rodriguez RDCS APPROVED REPORT EXAM: Two-dimensional and M-mode echocardiogram with Doppler and color Doppler. Other Information Quality : Good INDICATION CVA/TIA Echo Enhancing Agent Agent/Amount Used: Agitated Saline 8mL 2D DIMENSIONS RVDd2.4 (2.9-3.5cm)Left Atrium(2D)3.8 (1.6-4.0cm) IVSd0.9 (0.7-1.1cm)Aortic Root(2D)2.8 (2.0-3.7cm) LVDd5.7 (3.9-5.9cm)LVOT Diameter2.4 (1.8-2.4cm) PWd0.9 (0.7-1.1cm)LVDs3.7 (2.5-4.0cm) FS (%) 34.0 %SV98.0 ml LVEF(%)62.3 (>50%) Aortic Valve AoV Peak Eliud.113.2cm/sAoV VTI21.9cm AO Peak GR.5.1mmHgLVOT Peak Eliud.112.0cm/s AO Mean GR.3mmHgAVA (VMAX)4.40cm2 MARCO (VTI)4.90cm2 Mitral Valve MV E Umavuett08.0cm/sMV DECEL ZGEA930sm MV A Lmgvgxzu19.9cm/sE/A Ratio0.9 Tricuspid Valve TR P. Ltwazghg750uk/sRAP AWHBBPEN5qpNt TR Peak Gr.05hdLzKZZS78aiKs Pulmonary Vein S1 Tbdovxec47.3cm/sD2 Ypjkcetp00.1cm/s LEFT VENTRICLE The left ventricle is normal size. There is normal left ventricular wall thickness. The left ventricu lar systolic function is normal and the ejection fraction is within normal range. The Ejection Fracti on is 55-60%. There is normal LV segmental wall motion. Transmitral Doppler flow pattern is Grade I-a bnormal relaxation pattern. RIGHT VENTRICLE The right ventricle is normal size. The right ventricular systolic function is normal. ATRIA The left atrium size is normal. The right atrium size is normal. The interatrial septum is intact wit h no evidence for an atrial septal defect or patent foramen ovale as noted on 2-D or Doppler imaging. Injection of bubbles documented no interatrial shunt. AORTIC VALVE The aortic valve is calcified but opens well. Doppler and Color Flow revealed trace aortic regurgitat ion. There is no significant aortic valvular stenosis. MITRAL VALVE The mitral valve is calcified but opens well. There is no evidence of mitral valve prolapse. There is no mitral valve stenosis. Doppler and Color-flow revealed trace mitral regurgitation. TRICUSPID VALVE The tricuspid valve is normal in structure and function. Doppler and Color Flow revealed trace tricus pid regurgitation. The PA pressure was estimated at 29 mmHg. There is no tricuspid valve stenosis. PULMONIC VALVE The pulmonic valve is not well visualized. Doppler and Color Flow revealed no pulmonic valvular regur gitation. There is no pulmonic valvular stenosis. GREAT VESSELS The aortic root is normal in size. The ascending aorta is mildly dilated at 3.5 cm. The IVC is normal in size and collapses >50% with inspiration. PERICARDIAL EFFUSION There is no evidence of significant pericardial effusion. Critical Notification Critical Value: No <Conclusion> The left ventricle is normal size. The left ventricular systolic function is normal and the ejection fraction is within normal range. The Ejection Fraction is 55-60%. The interatrial septum is intact with no evidence for an atrial septal defect or patent foramen ovale as noted on 2-D or Doppler imaging. Injection of bubbles documented no interatrial shunt. There is no significant aortic valvular stenosis. Doppler and Color Flow revealed trace aortic regurgitation. Doppler and Color-flow revealed trace mitral regurgitation. Doppler and Color Flow revealed trace tricuspid regurgitation. The PA pressure was estimated at 29 mmHg. Signed by : Isaiah Rogers MD Electronically Approved : 04/07/2019 11:50:50
[2019-04-07] MEDS: LISINOPRIL 5 MG TABLET. PO SCH (12:32)
--- NOTE | 2019-04-07 13:56 | PDOC ---
CARDIOLOGY PROGRESS NOTE SUBJECTIVE: Mr. Louis is doing well and is without complaints including shortness of breath, chest pain, and palpitations. He has been able to be fully active with PT/OT, and function of his left arm has returned. His says that he has snored in the past, but has not as much since losing 25 pounds following his AK in 2017. He denies recent trips including car and plane rides Patient denies tobacco use, and affirms to very limited alcohol use. OBJECTIVE: Vital Signs/I&O: Vital Signs Date Time Temp Pulse Resp B/P (MAP) Pulse Ox O2 Delivery O2 Flow Rate FiO2 04/07/19 12:32 56 130/76 04/07/19 11:46 97.6 16 97 Room Air 97.6 04/07/19 03:54 2.0 I & O 04/06/19 04/06/19 04/07/19 15:00 23:00 07:00 Intake Total 120 ml 100 ml Balance 120 ml 100 ml Objective: Cardiac: RRR, no murmurs Respiratory: CTAB Extremities: 5/5 strength in upper and lower extremities bilaterally, no edema Pulse: 2+ radial and tibial pulses bilaterally CURRENT MEDICATIONS: Cardiac medications include: Aspirin 81 mg Lipitor 80 mg Prinivil 2.5 mg Effient 10 mg Heparin 5,000 units Q8 was denied by patient Nurse has been holding his Coreg 3.25 due to low pulse of 56 bpm DIAGNOSTIC TESTING: Echo: 04/07 Negative EF: 55-60% ASSESSMENT: 1. Stroke resulting in temporary left sided motor loss - uncertain source: possibly from plaque build-up in internal carotid arteries, idiopathic microvascular disease, or underlying arrhythmia causing embolus (least likely) 2. Hypertension - responsive to lisinopril. continue coreg as well. 3. Lipids at goal. If vascular surgery feels that carotid disease is not the likely source, consider outpt event recorder. Thanks PLAN: 1. Had a long discussion with patient and regarding the likely causes of the stroke, and next steps. ALEKSANDR LUJAN MD Apr 07, 2019 13:56
[2019-04-07 15:00] VITALS: BP 136/77
--- NOTE | 2019-04-07 16:39 | PDOC ---
Provider Note Provider Note Vascular consult dictated Imp: 1. Bilateral hemispheric strokes, now with complete resolution. Doubt embolic from the carotid arteries 2. mild to moderate ICA stenoses, right > left 3. ASHD Rec: 1. cont. dual antiplatelet therapy 2. cont. cardiac eval 3. will check carotid duplex scan as well. PEDRO CAMPBELL II, MD Apr 07, 2019 16:39
[2019-04-07 19:02] VITALS: BP 114/76
--- NOTE | 2019-04-07 19:41 | PDOC ---
PROGRESS NOTES Assessment Assessment IMPRESSION: 2 tiny acute infracts at right parietal and left frontal lobe. Word finding difficulty on 04/05/19, resolved. Right ICA stenosis 60%. CAD. HTN. HLD. RECOMMENDATIONS/PLAN: He has been treated with Affient. ASA 81 mg daily. Lipitor HS. Consulted VS. Discussed in all detail with him and his at bedside on 04/07/19. Past Medical History Cardiovascular: CAD, HTN, LA, Hyperlipidemia Pulmonary: Pneumonia, Other CENTRAL NERVOUS SYSTEM: Dementia, Other GI: GERD, Other Heme/Onc: No pertinent hx Musculoskeletal: Osteoarthritis, Other Rheumatologic: No pertinent hx Infectious disease: No pertinent hx Renal/: No pertinent hx Endocrine: No pertinent hx Past Surgical History Arthroscopy. Family History Coronary Artery Disease, Stroke, Other Social History ALCOHOL: none Drugs: None Lives: with Family Allergies Coded Allergies: niacin (Verified Allergy, Intermediate, 04/04/17) MEDICATIONS: Refer to [facility] REVIEW OF SYSTEMS: Constitutional: No malnutrition, weight loss, cachexia. Head: No traumatic brain or head injury. Skin: No edema, or rash. Ear: No infection. Eyes: No vision loss, or diplopia. Nose: No bleeding or purulent discharges. Hearing: No hearing decrease. Neck: No injury. Cardiac: LA, CAD, HTN, HLD Pulmonary: No COPD. GI: No GI Ulcer, GI bleeding Urinary/genital: No dysuria, incontinence, urinary retention. Endocrine: No cousin face, craniofacial dysmorphism, polydactyly. Skeletomuscular: No muscular atrophy, deformity. Neurological: see HP. Psychiatric: Denies drug use/abuse. Otherwise, not [id number] review of systems. PHYSICAL EXAMINATION: General appearance in no acute distress. HEENT: Normocephalic and nontraumatic. Eyes, nose, ears, and throat are unremarkable. Hearing decrease. Neck is supple. No lymphadenopathy. No Crepitus. Cardiovascular: S1, S2, regular rate and rhythm. Pulmonary: Clear to auscultation bilaterally. Abdomen: Bowel sounds are positive. Abdomen is soft, nontender, and nondistended. Extremities: No rash, lesions, or edema. No restriction of range of motion NEUROLOGICAL EXAMINATION: Alert. Oriented to time, place and person. PERRL. EOMI. CN: no focal findings. Muscle tone: within normal. Muscle strength: 5 DTR: 2 Plantar reflex: Flexor response bilaterally Gait: not examined in bed. Sensory exam: no abnormal findings. No cerebellar signs elicited. F-T-N test accurate. Objective Objective Vital Signs Date Time Temp Pulse Resp B/P (MAP) Pulse Ox O2 Delivery O2 Flow Rate FiO2 04/07/19 17:09 54 04/07/19 15:00 98.4 18 136/77 (96) 97 Room Air 98.4 04/07/19 08:00 2.0 Intake and Output 04/07/19 07:00 Intake Total 220 ml Balance 220 ml Intake Oral 220 ml # Voids 1 Vitals Signs Vitals VS - Last 72 Hours, by Label Date Time Temp Pulse Resp B/P (MAP) Pulse Ox O2 Delivery O2 Flow Rate FiO2 04/07/19 17:09 54 04/07/19 15:00 98.4 65 18 136/77 (96) 97 Room Air 98.4 04/07/19 12:32 56 130/76 04/07/19 11:46 97.6 56 16 130/76 (94) 97 Room Air 97.6 04/07/19 11:10 55 04/07/19 08:00 Room Air 2.0 04/07/19 07:00 97.5 61 16 152/83 (106) 98 Room Air 97.5 04/07/19 03:54 97.8 60 18 95/57 (70) 96 Nasal Cannula 2.0 97.8 04/06/19 23:43 98.1 60 18 93/51 (65) 96 Nasal Cannula 2.0 98.1 04/06/19 20:00 Room Air 04/06/19 19:19 98.3 63 18 104/ 96 Nasal Cannula 2.0 98.3 04/06/19 17:59 56 04/06/19 16:05 97.6 53 18 142/77 (98) 99 Room Air 97.6 04/06/19 11:02 97.7 53 18 122/75 (91) 97 Room Air 97.7 04/06/19 08:24 51 04/06/19 08:24 55 140/86 04/06/19 08:00 Room Air 2.0 04/06/19 07:46 97.8 55 18 140/86 (104) 96 Nasal Cannula 2.0 97.8 Medication Medications Current Medications Ergocalciferol (Vitamin D2) 50,000 unit QTH PO ; Start 04/10/19 at 16:00 Comment Review of Relevant I have reviewed the following items cristi (where applicable) has been applied. ROXANA GREENWOOD MD Apr 07, 2019 19:41
[2019-04-07] MEDS: ATORVASTATIN CALCIUM 40 MG TABLET. PO SCH (21:12)
[2019-04-07 23:02] VITALS: BP 110/62
[2019-04-08 03:54] VITALS: BP 125/72
--- NOTE | 2019-04-08 05:51 | CONS ---
DATE OF CONSULTATION: 04/07/2019 HISTORY: This is a 69-year-old gentleman who presented to the hospital on the 10th complaining of consecutive symptoms including left wrist tightness and weakness of the left leg. At the same time, he was experiencing acute changes with regard to speech. He has had a thorough evaluation including CT imaging, MRA imaging with CT angiography of the neck. The brain MRI suggest 2 tiny acute infarcts, 1 in the right parietal lobe and the other in the left frontal lobe. CT angiography of the neck reveals a piag-iz-pesbduqu stenosis of the right internal carotid artery proximally, which appears smooth to me in the neighborhood of 50-60%. There is less severe, less than 50% stenosis involving the left internal carotid artery. He is currently undergoing cardiac evaluation as well. Currently, he has had complete resolution of all of his symptoms. PAST MEDICAL HISTORY: Significant for coronary artery disease, hypertension, history of myocardial infarction, hyperlipidemia. PAST SURGICAL HISTORY: Includes arthroscopy. SOCIAL HISTORY: The patient is . He does not smoke. 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 REVIEW OF SYSTEMS: A 12-point review of systems is unremarkable with regard to vascular examination prior to the problems, which occurred prompting his admission. ALLERGIES: Include NIACIN. PHYSICAL EXAMINATION: GENERAL: The patient is alert and awake. He answers questions appropriately with some assistance from his . NECK: Carotids are 2+. ABDOMEN: Soft. EXTREMITIES: Easily palpable femoral, popliteal, and pedal pulses. Easily palpable radial and ulnar pulses. NEUROLOGIC: No focal deficits. IMPRESSION: 1. Bilateral hemispheric events which I think would be unlikely to be produced by consecutive and simultaneous microemboli from the carotid arteries. I think it would also be unlikely to occur from the right side, to affect both hemispheres. 2. Possible small vessel disease versus microemboli from cardiac source. RECOMMENDATIONS: 1. The patient is already on antiplatelet therapy. 2. We will obtain a carotid duplex scan for further evaluation of the carotid bifurcation. 3. Continue cardiac evaluation. 4. We will make further recommendations following carotid duplex imaging, but unlikely to be a surgical candidate at this point in time. Thank you for allowing me to evaluate him. PEDRO CAMPBELL MD DR: TEDDY/rahel JOB#: [id number] / [id number]
[2019-04-08 07:00] VITALS: BP 141/81
[2019-04-08] MEDS: CARVEDILOL 3.125 MG TABLET. PO SCH ×2 (08:00→16:29)
[2019-04-08 08:18] LABS: BASO % 1 % (0-3); EOS # 0.1 x10^3/uL (0.0-0.7); EOS % 2 % (0-3); HEMATOCRIT 46.4 % (39.0-53.0); HEMOGLOBIN 15.8 g/dL (13.0-17.5); LYMPH # 1.1 x10^3/uL (1.0-4.8); LYMPH % 21 % (24-48); MEAN CORPUSCULAR HEMOGLOBIN 30 pg (25-35); MEAN CORPUSCULAR HGB CONC 34 g/dL (31-37); MEAN CORPUSCULAR VOLUME 88 fL (79-100); MONO # 0.4 x10^3/uL (0.0-1.1); MONO % 8 % (0-9); NEUT # 3.7 x10^3/uL (1.8-7.7); NEUT % 69 % (31-73); PLATELET COUNT 138 x10^3/uL (140-400); RED BLOOD COUNT 5.24 x10^6/uL (4.30-5.70); RED CELL DISTRIBUTION WIDTH 14.3 % (11.5-14.5); WHITE BLOOD COUNT 5.4 x10^3/uL (4.0-11.0)
[2019-04-08 08:34] LABS: CALCIUM 8.7 mg/dL (8.5-10.1); CREATININE 1.1 mg/dL (0.7-1.3); GFR 66.8; POTASSIUM 3.7 mmol/L (3.5-5.1)
[2019-04-08] MEDS: FERROUS SULFATE 325 MG TABLET. PO SCH (08:44)
[2019-04-08] MEDS: PANTOPRAZOLE 40 MG TABLET.DR. PO SCH (08:44)
[2019-04-08] MEDS: PRASUGREL 10 MG TABLET. PO SCH (08:46)
[2019-04-08] MEDS: ASPIRIN ENTERIC COATED 81 MG TABLET.DR. PO SCH (08:46)
[2019-04-08] MEDS: LISINOPRIL 5 MG TABLET. PO SCH (08:46)
[2019-04-08] MEDS: FLUoxetine HCL 20 MG CAPSULE PO SCH (08:48)
--- NOTE | 2019-04-08 09:33 | PDOC ---
PROGRESS NOTES Chief Complaint Chief Complaint Past Medical History Cardiovascular: CAD, HTN, AR, Hyperlipidemia Pulmonary: Pneumonia, Other CENTRAL NERVOUS SYSTEM: Dementia, Other GI: GERD, Other Heme/Onc: No pertinent hx Musculoskeletal: Osteoarthritis, Other Rheumatologic: No pertinent hx Infectious disease: No pertinent hx Renal/: No pertinent hx Endocrine: No pertinent hx Past Surgical History Past Surgical History: Arthroscopy, Other Family History Family History: Coronary Artery Disease, Stroke, Other Social History ALCOHOL: none Drugs: None History of Present Illness History of Present Illness VTE Prophylaxis Ordered VTE Prophylaxis Devices: Yes VTE Pharmacological Prophylaxi: Yes Assessment/Plan Assessment/Plan ASSESSMENT Slurred Speech/Left Wrist Pain and weakness suspect TIA HTN CAD/AR: 2 stents to RCA 11/2016 HLD Likely vascular dementia: increasing forgetfulness Family hx of hemorrhagic stroke (mother) and inguinal aneurysm (father) Mild to moderate atheromatous/atherosclerotic plaque formation seen involving both carotid bifurcations and proximal internal carotid arteries, right greater than left. A 60% stenosis is seen involving the proximal right internal carotid artery near its origin. The interatrial septum is intact with no evidence for an atrial septal defect or patent foramen ovale as noted on 2-D or Doppler imaging. 04/07 ON ECHO 2 NEW tiny acute infarcts, one in the right parietal lobe and the other in the left frontal lobe. ON DOPPLER CAROTIDS 04/08 There is less than 50% stenosis bilaterally secondary to mild calcified plaque at the carotid bifurcations. Of note, on prior CTA of the head and neck is reported that there is 60% stenosis at the proximal right internal carotid artery. PLAN tele bed neuro checks q4 hrs continue home meds including BP meds, statin, and Effient check MRI/MRA of brain, PENDING TTE REVIEWED dvt ppx: heparin sq full code Continue dual antiplatelet therapy Carotid US in 6 months. with vascular associates 32 MIN PT EXAM, CHART REVIEW D/C PLANNING , > 50% OF TIME SPENT WITH EXAM, CHART REVIEW, PT CARE COORDINATION Vitals Vitals Vital Signs Date Time Temp Pulse Resp B/P (MAP) Pulse Ox O2 Delivery O2 Flow Rate FiO2 04/08/19 08:48 56 141/81 04/08/19 07:00 97.8 16 97 Room Air 97.8 04/07/19 20:00 2.0 Physical Exam Physical Exam HEENT: Head normocephalic, atraumatic. NECK: Supple LUNGS: Clear to auscultation. HEART: RRR, S1, S2 present, pulses intact ABDOMEN: Soft, positive bowel sounds. EXTREMITIES: No cyanosis or edema. NEUROLOGIC: slurred speech. normal strength upper and lower extremities Normal affect, normal mood. SKIN: No ulceration. General: Alert, Cooperative, No acute distress Heart: Regular rate Lungs: Clear, Other Abdomen: Normal bowel sounds, Soft Extremities: No cyanosis, No edema Labs LABS IMPRESSION: DOPPLER 04/08 1. No evidence for hemodynamically significant carotid stenosis. There is less than 50% stenosis bilaterally secondary to mild calcified plaque at the carotid bifurcations. Of note, on prior CTA of the head and neck is reported that there is 60% stenosis at the proximal right internal carotid artery. 2. Antegrade flow is identified in the vertebral arteries. 3. Evaluation of the carotid vasculature and measurements for luminal stenosis was performed utilizing NASCET criteria. Laboratory Tests Test 04/08/19 07:10 04/08/19 07:40 White Blood Count 5.4 x10^3/uL (4.0-11.0) Red Blood Count 5.24 x10^6/uL (4.30-5.70) Hemoglobin 15.8 g/dL (13.0-17.5) Hematocrit 46.4 % (39.0-53.0) Mean Corpuscular Volume 88 fL (79-100) Mean Corpuscular Hemoglobin 30 pg (25-35) Mean Corpuscular Hemoglobin Concent 34 g/dL (31-37) Red Cell Distribution Width 14.3 % (11.5-14.5) Platelet Count 138 x10^3/uL (140-400) Neutrophils (%) (Auto) 69 % (31-73) Lymphocytes (%) (Auto) 21 % (24-48) Monocytes (%) (Auto) 8 % (0-9) Eosinophils (%) (Auto) 2 % (0-3) Basophils (%) (Auto) 1 % (0-3) Neutrophils # (Auto) 3.7 x10^3/uL (1.8-7.7) Lymphocytes # (Auto) 1.1 x10^3/uL (1.0-4.8) Monocytes # (Auto) 0.4 x10^3/uL (0.0-1.1) Eosinophils # (Auto) 0.1 x10^3/uL (0.0-0.7) Basophils # (Auto) 0.0 x10^3/uL (0.0-0.2) Sodium Level 146 mmol/L (136-145) Potassium Level 3.7 mmol/L (3.5-5.1) Chloride Level 110 mmol/L (98-107) Carbon Dioxide Level 28 mmol/L (21-32) Anion Gap 8 (6-14) Blood Urea Nitrogen 13 mg/dL (8-26) Creatinine 1.1 mg/dL (0.7-1.3) Estimated GFR (Cockcroft-Gault) 66.8 Glucose Level 109 mg/dL (70-99) Calcium Level 8.7 mg/dL (8.5-10.1) Assessment and Plan Assessmemt and Plan Problems Medical Problems: (1) Elevated liver function tests Status: Acute (2) TIA (transient ischemic attack) Status: Acute Comment Review of Relevant I have reviewed the following items cristi (where applicable) has been applied. Labs Laboratory Tests Test 04/08/19 07:10 04/08/19 07:40 White Blood Count 5.4 x10^3/uL (4.0-11.0) Red Blood Count 5.24 x10^6/uL (4.30-5.70) Hemoglobin 15.8 g/dL (13.0-17.5) Hematocrit 46.4 % (39.0-53.0) Mean Corpuscular Volume 88 fL (79-100) Mean Corpuscular Hemoglobin 30 pg (25-35) Mean Corpuscular Hemoglobin Concent 34 g/dL (31-37) Red Cell Distribution Width 14.3 % (11.5-14.5) Platelet Count 138 x10^3/uL (140-400) Neutrophils (%) (Auto) 69 % (31-73) Lymphocytes (%) (Auto) 21 % (24-48) Monocytes (%) (Auto) 8 % (0-9) Eosinophils (%) (Auto) 2 % (0-3) Basophils (%) (Auto) 1 % (0-3) Neutrophils # (Auto) 3.7 x10^3/uL (1.8-7.7) Lymphocytes # (Auto) 1.1 x10^3/uL (1.0-4.8) Monocytes # (Auto) 0.4 x10^3/uL (0.0-1.1) Eosinophils # (Auto) 0.1 x10^3/uL (0.0-0.7) Basophils # (Auto) 0.0 x10^3/uL (0.0-0.2) Sodium Level 146 mmol/L (136-145) Potassium Level 3.7 mmol/L (3.5-5.1) Chloride Level 110 mmol/L (98-107) Carbon Dioxide Level 28 mmol/L (21-32) Anion Gap 8 (6-14) Blood Urea Nitrogen 13 mg/dL (8-26) Creatinine 1.1 mg/dL (0.7-1.3) Estimated GFR (Cockcroft-Gault) 66.8 Glucose Level 109 mg/dL (70-99) Calcium Level 8.7 mg/dL (8.5-10.1) Laboratory Tests Test 04/08/19 07:10 04/08/19 07:40 White Blood Count 5.4 x10^3/uL (4.0-11.0) Red Blood Count 5.24 x10^6/uL (4.30-5.70) Hemoglobin 15.8 g/dL (13.0-17.5) Hematocrit 46.4 % (39.0-53.0) Mean Corpuscular Volume 88 fL (79-100) Mean Corpuscular Hemoglobin 30 pg (25-35) Mean Corpuscular Hemoglobin Concent 34 g/dL (31-37) Red Cell Distribution Width 14.3 % (11.5-14.5) Platelet Count 138 x10^3/uL (140-400) Neutrophils (%) (Auto) 69 % (31-73) Lymphocytes (%) (Auto) 21 % (24-48) Monocytes (%) (Auto) 8 % (0-9) Eosinophils (%) (Auto) 2 % (0-3) Basophils (%) (Auto) 1 % (0-3) Neutrophils # (Auto) 3.7 x10^3/uL (1.8-7.7) Lymphocytes # (Auto) 1.1 x10^3/uL (1.0-4.8) Monocytes # (Auto) 0.4 x10^3/uL (0.0-1.1) Eosinophils # (Auto) 0.1 x10^3/uL (0.0-0.7) Basophils # (Auto) 0.0 x10^3/uL (0.0-0.2) Sodium Level 146 mmol/L (136-145) Potassium Level 3.7 mmol/L (3.5-5.1) Chloride Level 110 mmol/L (98-107) Carbon Dioxide Level 28 mmol/L (21-32) Anion Gap 8 (6-14) Blood Urea Nitrogen 13 mg/dL (8-26) Creatinine 1.1 mg/dL (0.7-1.3) Estimated GFR (Cockcroft-Gault) 66.8 Glucose Level 109 mg/dL (70-99) Calcium Level 8.7 mg/dL (8.5-10.1) Medications Current Medications Aspirin (Children'S Aspirin) 243 mg 1X ONCE PO Last administered on 04/05/19at 14:47; Start 04/05/19 at 14:30; Stop 04/05/19 at 14:31; Status DC Iohexol (Omnipaque 350 Mg/ml) 75 ml 1X ONCE IV Last administered on 04/05/19at 15:17; Start 04/05/19 at 14:45; Stop 04/05/19 at 14:46; Status DC Info (CONTRAST GIVEN -- Rx MONITORING) 1 each PRN DAILY PRN MC SEE COMMENTS; Start 04/05/19 at 14:45; Stop 04/07/19 at 14:44; Status DC Carvedilol (Coreg) 3.125 mg BIDWMEALS PO ; Start 04/05/19 at 17:00 Ergocalciferol (Vitamin D2) 50,000 unit QTH PO ; Start 04/10/19 at 16:00 Ferrous Sulfate (Feosol) 325 mg DAILY PO Last administered on 04/08/19at 08:48; Start 04/05/19 at 17:00 Fluoxetine HCl (PROzac) 20 mg DAILY PO Last administered on 04/07/19at 08:39; Start 04/05/19 at 17:00 Pantoprazole Sodium (Protonix) 40 mg DAILYAC PO Last administered on 04/08/19at 08:48; Start 04/05/19 at 17:00 Prasugrel (Effient) 10 mg DAILY PO Last administered on 04/08/19 08:48; Start 04/05/19 at 17:00 Atorvastatin Calcium (Lipitor) 80 mg QHS PO Last administered on 04/07/19at 21:12; Start 04/05/19 at 21:00 Lisinopril (Prinivil) 2.5 mg DAILY PO Last administered on 04/08/19 08:48; Start 04/05/19 at 17:00 Heparin Sodium (Porcine) (Heparin Sodium) 5,000 unit Q8HRS SQ Last administered on 04/06/19at 21:23; Start 04/05/19 at 22:00; Stop 04/07/19 at 16:45; Status DC Aspirin (Ecotrin) 81 mg DAILYWBKFT PO Last administered on 04/08/19 08:48; Start 04/06/19 at 09:00 Active Scripts Active Reported Fluoxetine Hcl 20 Mg Capsule 20 Mg PO DAILY Ferrous Sulfate 325 Mg Tablet 325 Mg PO DAILY Lisinopril 2.5 Mg Tablet 2.5 Mg PO DAILY Carvedilol (Carvedilol) 3.125 Mg Tablet 3.125 Mg PO BIDWMEALS Vitamin D2 (Ergocalciferol (Vitamin D2)) 50,000 Unit Capsule 50,000 Unit PO QTH Pantoprazole Sodium (Pantoprazole Sodium) 40 Mg Tablet.dr 40 Mg PO DAILY Atorvastatin Calcium 80 Mg Tablet 80 Mg PO DAILY Effient (Prasugrel Hcl) 10 Mg Tablet 10 Mg PO DAILY Vitals/I & O Vital Sign - Last 24 Hours 04/07/19 04/07/19 04/07/19 04/07/19 11:10 11:46 12:32 15:00 Temp 97.6 98.4 97.6 98.4 Pulse 55 56 56 65 Resp 16 18 B/P (MAP) 130/76 (94) 130/76 136/77 (96) Pulse Ox 97 97 O2 Delivery Room Air Room Air 04/07/19 04/07/19 04/07/19 04/07/19 17:09 19:02 20:00 23:02 Temp 98.1 98.2 98.1 98.2 Pulse 54 60 53 Resp 16 16 B/P (MAP) 114/76 (89) 110/62 (78) Pulse Ox 96 97 O2 Delivery Room Air Room Air Room Air O2 Flow Rate 2.0 04/08/19 04/08/19 04/08/19 04/08/19 03:54 07:00 08:48 08:48 Temp 97.7 97.8 97.7 97.8 Pulse 54 56 56 56 Resp 16 16 B/P (MAP) 125/72 (89) 141/81 (101) 141/81 141/81 Pulse Ox 100 97 O2 Delivery Room Air Room Air Intake and Output 04/07/19 04/07/19 04/08/19 15:00 23:00 07:00 Intake Total 360 ml 150 ml 400 ml Balance 360 ml 150 ml 400 ml SUKHDEV BLAIR MD Apr 08, 2019 09:33
--- NOTE | 2019-04-08 10:11 | PDOC ---
PROGRESS NOTES Subjective Subjective Patient seen and examined in room. Patient reports no new signs or symptoms of TIA or stroke and states he is back to baseline. at bedside. Objective Objective Vital Signs Date Time Temp Pulse Resp B/P (MAP) Pulse Ox O2 Delivery O2 Flow Rate FiO2 04/08/19 08:48 56 141/81 04/08/19 07:00 97.8 16 97 Room Air 97.8 04/07/19 20:00 2.0 Intake and Output 04/08/19 06:59 Intake Total 910 ml Balance 910 ml Intake Oral 910 ml # Voids 1 Physical Exam Physical Exam Awake and alert HR 50 Non-labored respirations Alternative [employer] equal, speech clear. Motor and sensation intact bilateral lower extremities. Assessment Assessment Problems Medical Problems: (1) Elevated liver function tests Status: Acute (2) TIA (transient ischemic attack) Status: Acute Plan Plan of Care Assessment: 1. Bilateral hemispheric strokes, now with complete resolution. Doubt embolic from the carotid arteries 2. Mild to Moderate ICA stenoses, right > left per CT. US worksheet available, ICA/CCA < 1.0 bilaterally. Recommend follow up Carotid US in 6 months. 3. ASHD Recommendations; 1. Continue dual antiplatelet therapy 2. Continue cardiac evaluation 3. If patient continues to have symptoms consider full anticoagulation with Eliquis or Xarelto. Comment Review of Relevant I have reviewed the following items cristi (where applicable) has been applied. Labs Laboratory Tests Test 04/08/19 07:10 04/08/19 07:40 White Blood Count 5.4 x10^3/uL (4.0-11.0) Red Blood Count 5.24 x10^6/uL (4.30-5.70) Hemoglobin 15.8 g/dL (13.0-17.5) Hematocrit 46.4 % (39.0-53.0) Mean Corpuscular Volume 88 fL (79-100) Mean Corpuscular Hemoglobin 30 pg (25-35) Mean Corpuscular Hemoglobin Concent 34 g/dL (31-37) Red Cell Distribution Width 14.3 % (11.5-14.5) Platelet Count 138 x10^3/uL (140-400) Neutrophils (%) (Auto) 69 % (31-73) Lymphocytes (%) (Auto) 21 % (24-48) Monocytes (%) (Auto) 8 % (0-9) Eosinophils (%) (Auto) 2 % (0-3) Basophils (%) (Auto) 1 % (0-3) Neutrophils # (Auto) 3.7 x10^3/uL (1.8-7.7) Lymphocytes # (Auto) 1.1 x10^3/uL (1.0-4.8) Monocytes # (Auto) 0.4 x10^3/uL (0.0-1.1) Eosinophils # (Auto) 0.1 x10^3/uL (0.0-0.7) Basophils # (Auto) 0.0 x10^3/uL (0.0-0.2) Sodium Level 146 mmol/L (136-145) Potassium Level 3.7 mmol/L (3.5-5.1) Chloride Level 110 mmol/L (98-107) Carbon Dioxide Level 28 mmol/L (21-32) Anion Gap 8 (6-14) Blood Urea Nitrogen 13 mg/dL (8-26) Creatinine 1.1 mg/dL (0.7-1.3) Estimated GFR (Cockcroft-Gault) 66.8 Glucose Level 109 mg/dL (70-99) Calcium Level 8.7 mg/dL (8.5-10.1) Laboratory Tests Test 04/08/19 07:10 04/08/19 07:40 White Blood Count 5.4 x10^3/uL (4.0-11.0) Red Blood Count 5.24 x10^6/uL (4.30-5.70) Hemoglobin 15.8 g/dL (13.0-17.5) Hematocrit 46.4 % (39.0-53.0) Mean Corpuscular Volume 88 fL (79-100) Mean Corpuscular Hemoglobin 30 pg (25-35) Mean Corpuscular Hemoglobin Concent 34 g/dL (31-37) Red Cell Distribution Width 14.3 % (11.5-14.5) Platelet Count 138 x10^3/uL (140-400) Neutrophils (%) (Auto) 69 % (31-73) Lymphocytes (%) (Auto) 21 % (24-48) Monocytes (%) (Auto) 8 % (0-9) Eosinophils (%) (Auto) 2 % (0-3) Basophils (%) (Auto) 1 % (0-3) Neutrophils # (Auto) 3.7 x10^3/uL (1.8-7.7) Lymphocytes # (Auto) 1.1 x10^3/uL (1.0-4.8) Monocytes # (Auto) 0.4 x10^3/uL (0.0-1.1) Eosinophils # (Auto) 0.1 x10^3/uL (0.0-0.7) Basophils # (Auto) 0.0 x10^3/uL (0.0-0.2) Sodium Level 146 mmol/L (136-145) Potassium Level 3.7 mmol/L (3.5-5.1) Chloride Level 110 mmol/L (98-107) Carbon Dioxide Level 28 mmol/L (21-32) Anion Gap 8 (6-14) Blood Urea Nitrogen 13 mg/dL (8-26) Creatinine 1.1 mg/dL (0.7-1.3) Estimated GFR (Cockcroft-Gault) 66.8 Glucose Level 109 mg/dL (70-99) Calcium Level 8.7 mg/dL (8.5-10.1) Medications Current Medications Aspirin (Children'S Aspirin) 243 mg 1X ONCE PO Last administered on 04/05/19at 14:47; Start 04/05/19 at 14:30; Stop 04/05/19 at 14:31; Status DC Iohexol (Omnipaque 350 Mg/ml) 75 ml 1X ONCE IV Last administered on 04/05/19at 15:17; Start 04/05/19 at 14:45; Stop 04/05/19 at 14:46; Status DC Info (CONTRAST GIVEN -- Rx MONITORING) 1 each PRN DAILY PRN MC SEE COMMENTS; Start 04/05/19 at 14:45; Stop 04/07/19 at 14:44; Status DC Carvedilol (Coreg) 3.125 mg BIDWMEALS PO ; Start 04/05/19 at 17:00 Ergocalciferol (Vitamin D2) 50,000 unit QTH PO ; Start 04/10/19 at 16:00 Ferrous Sulfate (Feosol) 325 mg DAILY PO Last administered on 04/08/19at 08:48; Start 04/05/19 at 17:00 Fluoxetine HCl (PROzac) 20 mg DAILY PO Last administered on 04/07/19 08:39; Start 04/05/19 at 17:00 Pantoprazole Sodium (Protonix) 40 mg DAILYAC PO Last administered on 04/08/19 08:48; Start 04/05/19 at 17:00 Prasugrel (Effient) 10 mg DAILY PO Last administered on 04/08/19 08:48; Start 04/05/19 at 17:00 Atorvastatin Calcium (Lipitor) 80 mg QHS PO Last administered on 04/07/19 21:12; Start 04/05/19 at 21:00 Lisinopril (Prinivil) 2.5 mg DAILY PO Last administered on 04/08/19 08:48; Start 04/05/19 at 17:00 Heparin Sodium (Porcine) (Heparin Sodium) 5,000 unit Q8HRS SQ Last administered on 04/06/19 21:23; Start 04/05/19 at 22:00; Stop 04/07/19 at 16:45; Status DC Aspirin (Ecotrin) 81 mg DAILYWBKFT PO Last administered on 04/08/19 08:48; Start 04/06/19 at 09:00 Active Scripts Active Reported Fluoxetine Hcl 20 Mg Capsule 20 Mg PO DAILY Ferrous Sulfate 325 Mg Tablet 325 Mg PO DAILY Lisinopril 2.5 Mg Tablet 2.5 Mg PO DAILY Carvedilol (Carvedilol) 3.125 Mg Tablet 3.125 Mg PO BIDWMEALS Vitamin D2 (Ergocalciferol (Vitamin D2)) 50,000 Unit Capsule 50,000 Unit PO QTH Pantoprazole Sodium (Pantoprazole Sodium) 40 Mg Tablet.dr 40 Mg PO DAILY Atorvastatin Calcium 80 Mg Tablet 80 Mg PO DAILY Effient (Prasugrel Hcl) 10 Mg Tablet 10 Mg PO DAILY Vitals/I & O Vital Sign - Last 24 Hours 04/07/19 04/07/19 04/07/19 04/07/19 11:10 11:46 12:32 15:00 Temp 97.6 98.4 97.6 98.4 Pulse 55 56 56 65 Resp 16 18 B/P (MAP) 130/76 (94) 130/76 136/77 (96) Pulse Ox 97 97 O2 Delivery Room Air Room Air 804/07/19 04/07/19 04/07/19 17:09 19:02 20:00 23:02 Temp 98.1 98.2 98.1 98.2 Pulse 54 60 53 Resp 16 16 B/P (MAP) 114/76 (89) 110/62 (78) Pulse Ox 96 97 O2 Delivery Room Air Room Air Room Air O2 Flow Rate 2.0 04/08/19 04/08/19 04/08/19 04/08/19 03:54 07:00 08:48 08:48 Temp 97.7 97.8 97.7 97.8 Pulse 54 56 56 56 Resp 16 16 B/P (MAP) 125/72 (89) 141/81 (101) 141/81 141/81 Pulse Ox 100 97 O2 Delivery Room Air Room Air Intake and Output 04/07/19 04/07/19 04/08/19 14:59 22:59 06:59 Intake Total 360 ml 150 ml 400 ml Balance 360 ml 150 ml 400 ml ONOFRE HANSON APRN Apr 08, 2019 10:11
[2019-04-08 11:15] VITALS: BP 122/78
--- NOTE | 2019-04-08 13:09 | RAD ---
Ultrasound carotid Doppler 04/07/2019 4:15 PM INDICATION: CVA, stenosis COMPARISON: CTA of the head and neck April 05, 2019 TECHNIQUE: Sonographic imaging of the carotid vasculature was performed utilizing grayscale, color Doppler and spectral waveform analysis. FINDINGS: (All velocities are measured cm per second) Right carotid: Calcified atheromatous plaque at the right carotid bifurcation results in less than 50% stenosis of the carotid lumen. Peak systolic velocity: Proximal common carotid artery: 101 Middle common carotid artery: 112 Distal common carotid artery: 96 Proximal internal carotid artery: 103 Middle internal carotid artery: 93 Distal internal carotid artery: 91 End-diastolic velocity: 31 External carotid artery: 104 Internal carotid artery/common carotid artery ratio: 0.81-0.91 Vertebral artery: Antegrade flow Left carotid: Mild calcified atheromatous plaque is identified at the left carotid bifurcation with less than 50% luminal stenosis. Peak systolic velocity: Proximal common carotid artery: 170 Middle common carotid artery: 115 Distal common carotid artery: 104 Proximal internal carotid artery: 96 Middle internal carotid artery: 89 Distal internal carotid artery: 93 End-diastolic velocity: 35 External carotid artery: 122 Internal carotid artery/common carotid artery ratio: 0.77-0.83 Vertebral artery: Antegrade flow IMPRESSION: 1. No evidence for hemodynamically significant carotid stenosis. There is less than 50% stenosis bilaterally secondary to mild calcified plaque at the carotid bifurcations. Of note, on prior CTA of the head and neck is reported that there is 60% stenosis at the proximal right internal carotid artery. 2. Antegrade flow is identified in the vertebral arteries. 3. Evaluation of the carotid vasculature and measurements for luminal stenosis was performed utilizing NASCET criteria. Electronically signed by: Lena Waite MD (04/08/2019 1:06 PM) [id number]
[2019-04-08 15:00] VITALS: BP 108/63
[2019-04-08 16:29] VITALS: BP 108/63
--- NOTE | 2019-04-08 16:37 | PDOC3 ---
Discharge Summary Date of Admission: Apr 05, 2019 Date of Discharge: Apr 08, 2019 Follow-Up: 3-5 days Admitting Diagnosis comment: discharge dx Assessment/Plan ASSESSMENT Slurred Speech/Left Wrist Pain and weakness suspect TIA HTN CAD/[place]: 2 stents to RCA 11/2016 HLD Likely vascular dementia: increasing forgetfulness Family hx of hemorrhagic stroke (mother) and inguinal aneurysm (father) Mild to moderate atheromatous/atherosclerotic plaque formation seen involving both carotid bifurcations and proximal internal carotid arteries, right greater than left. A 60% stenosis is seen involving the proximal right internal carotid artery near its origin. The interatrial septum is intact with no evidence for an atrial septal defect or patent foramen ovale as noted on 2-D or Doppler imaging. 04/07 ON ECHO 2 NEW tiny acute infarcts, one in the right parietal lobe and the other in the left frontal lobe. ON DOPPLER CAROTIDS 04/08 There is less than 50% stenosis bilaterally secondary to mild calcified plaque at the carotid bifurcations. Of note, on prior CTA of the head and neck is reported that there is 60% stenosis at the proximal right internal carotid artery. PLAN tele bed neuro checks q4 hrs continue home meds including BP meds, statin, and Effient check MRI/MRA of brain, PENDING TTE REVIEWED dvt ppx: heparin sq full code Continue dual antiplatelet therapy Carotid US in 6 months. with vascular associates 32 MIN PT EXAM, CHART REVIEW D/C PLANNING , > 50% OF TIME SPENT WITH EXAM, CHART REVIEW, PT CARE COORDINATION Vitals Vitals Vital Signs Date Time Temp Pulse Resp B/P (MAP) Pulse Ox O2 Delivery O2 Flow Rate FiO2 04/08/19 08:48 56 141/81 04/08/19 07:00 97.8 16 97 Room Air 97.8 04/07/19 20:00 2.0 Physical Exam Physical Exam HEENT: Head normocephalic, atraumatic. NECK: Supple LUNGS: Clear to auscultation. HEART: RRR, S1, S2 present, pulses intact ABDOMEN: Soft, positive bowel sounds. EXTREMITIES: No cyanosis or edema. NEUROLOGIC: slurred speech. normal strength upper and lower extremities Normal affect, normal mood. SKIN: No ulceration. General: Alert, Cooperative, No acute distress Heart: Regular rate Lungs: Clear, Other Abdomen: Normal bowel sounds, Soft Extremities: No cyanosis, No edema Labs LABS IMPRESSION: DOPPLER 04/08 1. No evidence for hemodynamically significant carotid stenosis. There is less than 50% stenosis bilaterally secondary to mild calcified plaque at the carotid bifurcations. Of note, on prior CTA of the head and neck is reported that there is 60% stenosis at the proximal right internal carotid artery. FINAL DIAGNOSIS Problems Medical Problems: (1) Elevated liver function tests Status: Acute (2) TIA (transient ischemic attack) Status: Acute Brief Hospital Course Mr. Medrano is a 69 old [sex] who presented with [ acute cva] CONDITION AT DISCHARGE: Improved Discharge Medications Current Medications Aspirin (Children'S Aspirin) 243 mg 1X ONCE PO Last administered on 04/05/19at 14:47; Start 04/05/19 at 14:30; Stop 04/05/19 at 14:31; Status DC Iohexol (Omnipaque 350 Mg/ml) 75 ml 1X ONCE IV Last administered on 04/05/19at 15:17; Start 04/05/19 at 14:45; Stop 04/05/19 at 14:46; Status DC Info (CONTRAST GIVEN -- Rx MONITORING) 1 each PRN DAILY PRN MC SEE COMMENTS; Start 04/05/19 at 14:45; Stop 04/07/19 at 14:44; Status DC Carvedilol (Coreg) 3.125 mg BIDWMEALS PO ; Start 04/05/19 at 17:00 Ergocalciferol (Vitamin D2) 50,000 unit QTH PO ; Start 04/10/19 at 16:00 Ferrous Sulfate (Feosol) 325 mg DAILY PO Last administered on 04/08/19at 08:48; Start 04/05/19 at 17:00 Fluoxetine HCl (PROzac) 20 mg DAILY PO Last administered on 04/07/19at 08:39; Start 04/05/19 at 17:00 Pantoprazole Sodium (Protonix) 40 mg DAILYAC PO Last administered on 04/08/19at 08:48; Start 04/05/19 at 17:00 Prasugrel (Effient) 10 mg DAILY PO Last administered on 04/08/19at 08:48; Start 04/05/19 at 17:00 Atorvastatin Calcium (Lipitor) 80 mg QHS PO Last administered on 04/07/19at 21:12; Start 04/05/19 at 21:00 Lisinopril (Prinivil) 2.5 mg DAILY PO Last administered on 04/08/19at 08:48; Start 04/05/19 at 17:00 Heparin Sodium (Porcine) (Heparin Sodium) 5,000 unit Q8HRS SQ Last administered on 04/06/19at 21:23; Start 04/05/19 at 22:00; Stop 04/07/19 at 16:45; Status DC Aspirin (Ecotrin) 81 mg DAILYWBKFT PO Last administered on 04/08/19at 08:48; Start 04/06/19 at 09:00 Active Scripts Active Reported Fluoxetine Hcl 20 Mg Capsule 20 Mg PO DAILY Ferrous Sulfate 325 Mg Tablet 325 Mg PO DAILY Lisinopril 2.5 Mg Tablet 2.5 Mg PO DAILY Carvedilol (Carvedilol) 3.125 Mg Tablet 3.125 Mg PO BIDWMEALS Vitamin D2 (Ergocalciferol (Vitamin D2)) 50,000 Unit Capsule 50,000 Unit PO QTH Pantoprazole Sodium (Pantoprazole Sodium) 40 Mg Tablet.dr 40 Mg PO DAILY Atorvastatin Calcium 80 Mg Tablet 80 Mg PO DAILY Effient (Prasugrel Hcl) 10 Mg Tablet 10 Mg PO DAILY Vital Signs Vital Signs Date Time Temp Pulse Resp B/P (MAP) Pulse Ox O2 Delivery O2 Flow Rate FiO2 04/08/19 16:29 56 108/63 04/08/19 15:00 98.5 18 96 Room Air 98.5 04/07/19 20:00 2.0 Labs Laboratory Tests Test 04/08/19 07:10 04/08/19 07:40 White Blood Count 5.4 x10^3/uL (4.0-11.0) Red Blood Count 5.24 x10^6/uL (4.30-5.70) Hemoglobin 15.8 g/dL (13.0-17.5) Hematocrit 46.4 % (39.0-53.0) Mean Corpuscular Volume 88 fL (79-100) Mean Corpuscular Hemoglobin 30 pg (25-35) Mean Corpuscular Hemoglobin Concent 34 g/dL (31-37) Red Cell Distribution Width 14.3 % (11.5-14.5) Platelet Count 138 x10^3/uL (140-400) Neutrophils (%) (Auto) 69 % (31-73) Lymphocytes (%) (Auto) 21 % (24-48) Monocytes (%) (Auto) 8 % (0-9) Eosinophils (%) (Auto) 2 % (0-3) Basophils (%) (Auto) 1 % (0-3) Neutrophils # (Auto) 3.7 x10^3/uL (1.8-7.7) Lymphocytes # (Auto) 1.1 x10^3/uL (1.0-4.8) Monocytes # (Auto) 0.4 x10^3/uL (0.0-1.1) Eosinophils # (Auto) 0.1 x10^3/uL (0.0-0.7) Basophils # (Auto) 0.0 x10^3/uL (0.0-0.2) Sodium Level 146 mmol/L (136-145) Potassium Level 3.7 mmol/L (3.5-5.1) Chloride Level 110 mmol/L (98-107) Carbon Dioxide Level 28 mmol/L (21-32) Anion Gap 8 (6-14) Blood Urea Nitrogen 13 mg/dL (8-26) Creatinine 1.1 mg/dL (0.7-1.3) Estimated GFR (Cockcroft-Gault) 66.8 Glucose Level 109 mg/dL (70-99) Calcium Level 8.7 mg/dL (8.5-10.1) Laboratory Tests Test 04/08/19 07:10 04/08/19 07:40 White Blood Count 5.4 x10^3/uL (4.0-11.0) Red Blood Count 5.24 x10^6/uL (4.30-5.70) Hemoglobin 15.8 g/dL (13.0-17.5) Hematocrit 46.4 % (39.0-53.0) Mean Corpuscular Volume 88 fL (79-100) Mean Corpuscular Hemoglobin 30 pg (25-35) Mean Corpuscular Hemoglobin Concent 34 g/dL (31-37) Red Cell Distribution Width 14.3 % (11.5-14.5) Platelet Count 138 x10^3/uL (140-400) Neutrophils (%) (Auto) 69 % (31-73) Lymphocytes (%) (Auto) 21 % (24-48) Monocytes (%) (Auto) 8 % (0-9) Eosinophils (%) (Auto) 2 % (0-3) Basophils (%) (Auto) 1 % (0-3) Neutrophils # (Auto) 3.7 x10^3/uL (1.8-7.7) Lymphocytes # (Auto) 1.1 x10^3/uL (1.0-4.8) Monocytes # (Auto) 0.4 x10^3/uL (0.0-1.1) Eosinophils # (Auto) 0.1 x10^3/uL (0.0-0.7) Basophils # (Auto) 0.0 x10^3/uL (0.0-0.2) Sodium Level 146 mmol/L (136-145) Potassium Level 3.7 mmol/L (3.5-5.1) Chloride Level 110 mmol/L (98-107) Carbon Dioxide Level 28 mmol/L (21-32) Anion Gap 8 (6-14) Blood Urea Nitrogen 13 mg/dL (8-26) Creatinine 1.1 mg/dL (0.7-1.3) Estimated GFR (Cockcroft-Gault) 66.8 Glucose Level 109 mg/dL (70-99) Calcium Level 8.7 mg/dL (8.5-10.1) Allergies Allergies Coded Allergies Type Severity Reaction Last Updated Verified niacin Allergy Intermediate 04/04/17 Yes Disposition/Orders: D/C to Home Patient Instructions d/c planning 32 min SUKHDEV BLAIR MD Apr 08, 2019 16:37
[2019-04-08] MEDS ORDERED: ASPI-612 PO (16:39)
--- NOTE | 2019-04-08 16:41 | DISCH ---
DISCHARGE INSTRUCTIONS Condition on Discharge Condition on Discharge: Stable Activity After Discharge Activity Instructions for Disc: Activity as tolerated Lifting Instructions after Dis: No heavy lifting, No pulling or pushing Driving Instructions after Dis: Do not drive today Weight Bearing Status after Di: As tolerated Diet after Discharge Diet after Discharge: Cardiac Diet Texture: Regular Checks after Discharge Checks after discharge: Check blood press - daily Contacting the DR. after DC Call your doctor for: If your condition worsens Treatment/Equipment after DC Adaptive Equipment Issued: None SUKHDEV BLAIR MD Apr 08, 2019 16:41
--- NOTE | 2019-04-08 18:30 | NUR ---
Pt is all ready for discharge to home [facility] after reviewing all pertinent information including medications, education, follow up and at home care. Pt has been instructed to: Follow up with Vascular Surgery in 6 months Call 's office in the morning for an out patient event recorder Follow up with in 2 weeks Pt is waiting for to return with clothes to change into to go home.
--- NOTE | 2019-04-08 20:27 | PDOC ---
PROGRESS NOTES Assessment Assessment 2 tiny acute infracts at right parietal and left frontal lobe. Word finding difficulty on 04/05/19, resolved. Right ICA stenosis 60%. CAD. HTN. HLD. RECOMMENDATIONS/PLAN: He has been treated with Affient. ASA 81 mg daily. Lipitor HS. FU with VS. FU with Neurology in 1 month. Discussed in detail with him and his at bedside on 04/08/19. Past Medical History Cardiovascular: CAD, HTN, IL, Hyperlipidemia Pulmonary: Pneumonia, Other CENTRAL NERVOUS SYSTEM: Dementia, Other GI: GERD, Other Heme/Onc: No pertinent hx Musculoskeletal: Osteoarthritis, Other Rheumatologic: No pertinent hx Infectious disease: No pertinent hx Renal/: No pertinent hx Endocrine: No pertinent hx Past Surgical History Arthroscopy. Family History Coronary Artery Disease, Stroke, Other Social History ALCOHOL: none Drugs: None Lives: with Family Allergies Coded Allergies: niacin (Verified Allergy, Intermediate, 04/04/17) MEDICATIONS: Refer to [facility] REVIEW OF SYSTEMS: Constitutional: No malnutrition, weight loss, cachexia. Head: No traumatic brain or head injury. Skin: No edema, or rash. Ear: No infection. Eyes: No vision loss, or diplopia. Nose: No bleeding or purulent discharges. Hearing: No hearing decrease. Neck: No injury. Cardiac: IL, CAD, HTN, HLD Pulmonary: No COPD. GI: No GI Ulcer, GI bleeding Urinary/genital: No dysuria, incontinence, urinary retention. Endocrine: No cousin face, craniofacial dysmorphism, polydactyly. Skeletomuscular: No muscular atrophy, deformity. Neurological: see HP. Psychiatric: Denies drug use/abuse. Otherwise, not [id number] review of systems. PHYSICAL EXAMINATION: General appearance in no acute distress. HEENT: Normocephalic and nontraumatic. Eyes, nose, ears, and throat are unremarkable. Hearing decrease. Neck is supple. No lymphadenopathy. No Crepitus. Cardiovascular: S1, S2, regular rate and rhythm. Pulmonary: Clear to auscultation bilaterally. Abdomen: Bowel sounds are positive. Abdomen is soft, nontender, and nondistended. Extremities: No rash, lesions, or edema. No restriction of range of motion NEUROLOGICAL EXAMINATION: Alert. Oriented to time, place and person. PERRL. EOMI. CN: no focal findings. Muscle tone: within normal. Muscle strength: 5 DTR: 2 Plantar reflex: Flexor response bilaterally Gait: normal. Sensory exam: no abnormal findings. No cerebellar signs elicited. F-T-N test accurate. Objective Objective Vital Signs Date Time Temp Pulse Resp B/P (MAP) Pulse Ox O2 Delivery O2 Flow Rate FiO2 04/08/19 16:29 56 108/63 04/08/19 15:00 98.5 18 96 Room Air 98.5 04/07/19 20:00 2.0 Intake and Output 04/08/19 06:59 Intake Total 910 ml Balance 910 ml Intake Oral 910 ml # Voids 1 Vitals Signs Vitals VS - Last 72 Hours, by Label Date Time Temp Pulse Resp B/P (MAP) Pulse Ox O2 Delivery O2 Flow Rate FiO2 04/08/19 16:29 56 108/63 04/08/19 15:00 98.5 56 18 108/63 (78) 96 Room Air 98.5 04/08/19 11:15 98.6 57 18 122/78 (93) 97 Room Air 98.6 04/08/19 08:48 56 141/81 04/08/19 08:48 56 141/81 04/08/19 07:45 Room Air 04/08/19 07:00 97.8 56 16 141/81 (101) 97 Room Air 97.8 04/08/19 03:54 97.7 54 16 125/72 (89) 100 Room Air 97.7 04/07/19 23:02 98.2 53 16 110/62 (78) 97 Room Air 98.2 04/07/19 20:00 Room Air 2.0 04/07/19 19:02 98.1 60 16 114/76 (89) 96 Room Air 98.1 04/07/19 17:09 54 04/07/19 15:00 98.4 65 18 136/77 (96) 97 Room Air 98.4 04/07/19 12:32 56 130/76 04/07/19 11:46 97.6 56 16 130/76 (94) 97 Room Air 97.6 04/07/19 11:10 55 04/07/19 08:00 Room Air 2.0 04/07/19 07:00 97.5 61 16 152/83 (106) 98 Room Air 97.5 Laboratory Laboratory Laboratory Tests Test 04/08/19 07:10 04/08/19 07:40 White Blood Count 5.4 x10^3/uL (4.0-11.0) Red Blood Count 5.24 x10^6/uL (4.30-5.70) Hemoglobin 15.8 g/dL (13.0-17.5) Hematocrit 46.4 % (39.0-53.0) Mean Corpuscular Volume 88 fL (79-100) Mean Corpuscular Hemoglobin 30 pg (25-35) Mean Corpuscular Hemoglobin Concent 34 g/dL (31-37) Red Cell Distribution Width 14.3 % (11.5-14.5) Platelet Count 138 x10^3/uL (140-400) Neutrophils (%) (Auto) 69 % (31-73) Lymphocytes (%) (Auto) 21 % (24-48) Monocytes (%) (Auto) 8 % (0-9) Eosinophils (%) (Auto) 2 % (0-3) Basophils (%) (Auto) 1 % (0-3) Neutrophils # (Auto) 3.7 x10^3/uL (1.8-7.7) Lymphocytes # (Auto) 1.1 x10^3/uL (1.0-4.8) Monocytes # (Auto) 0.4 x10^3/uL (0.0-1.1) Eosinophils # (Auto) 0.1 x10^3/uL (0.0-0.7) Basophils # (Auto) 0.0 x10^3/uL (0.0-0.2) Sodium Level 146 mmol/L (136-145) Potassium Level 3.7 mmol/L (3.5-5.1) Chloride Level 110 mmol/L (98-107) Carbon Dioxide Level 28 mmol/L (21-32) Anion Gap 8 (6-14) Blood Urea Nitrogen 13 mg/dL (8-26) Creatinine 1.1 mg/dL (0.7-1.3) Estimated GFR (Cockcroft-Gault) 66.8 Glucose Level 109 mg/dL (70-99) Calcium Level 8.7 mg/dL (8.5-10.1) Medication Medications Current Medications Ergocalciferol (Vitamin D2) 50,000 unit QTH PO ; Start 04/10/19 at 16:00 Comment Review of Relevant I have reviewed the following items cristi (where applicable) has been applied. ROXANA GREENWOOD MD Apr 08, 2019 20:27
[2019-04-10] MEDS ORDERED: ERGOCALCIFEROL (VITAMIN D2) 50,000 UNIT CAPSULE. PO SCH (16:00)
== END 2019-04-08 19:00 | disposition home or self-care (01) | DRG 69 ==
LOC: ER 13:47 → 6 SOUTH 14:09
PROVIDERS: ADMIT Internal Medicine; ATTEND Internal Medicine
DX: G45.9 Transient cerebral ischemic attack, unspecified (principal); I73.9 Peripheral vascular disease, unspecified; I25.10 Atherosclerotic heart disease of native coronary artery without angina pectoris; E78.00 Pure hypercholesterolemia, unspecified; I10 Essential (primary) hypertension; E78.5 Hyperlipidemia, unspecified; F01.50 Vascular dementia, unspecified severity, without behavioral disturbance, psychotic disturbance, mood disturbance, and anxiety; K21.9 Gastro-esophageal reflux disease without esophagitis; M19.90 Unspecified osteoarthritis, unspecified site; I25.2 Old myocardial infarction; Z88.8 Allergy status to other drugs, medicaments and biological substances; Z82.49 Family history of ischemic heart disease and other diseases of the circulatory system; Z86.73 Personal history of transient ischemic attack (TIA), and cerebral infarction without residual deficits; Z82.3 Family history of stroke; Z79.82 Long term (current) use of aspirin; Z95.5 Presence of coronary angioplasty implant and graft
CPT/HCPCS: 36415; 70450; 70496; 70498; 70547; 70551; 80048; 80053; 80061; 81001; 82550; 82962; 84484; 85025; 85027; 85610; 85730; 93005; 93306; 93880; J1644; Q9967; 92610; G0378

== ENCOUNTER 2019-05-23 10:24 | Emergency (ER) | payer MEDICARE ==
[~2019-05-23] VITALS: Ht 182.9 cm; Wt 90.7 kg
[~2019-05-23 10:24] MED LIST changes: +ASPI-612 PO
--- NOTE | 2019-05-23 11:18 | PHYS DOC ---
Past Medical History Past Medical History: CAD, High Cholesterol, Heart Disease, Hypertension, CT, Stroke Past Surgical History: Other Additional Past Surgical Histo: stents placed in November. right knee orthoscopy Alcohol Use: None Drug Use: None Adult General Chief Complaint Chief Complaint: OTHER COMPLAINTS [facility] HPI Patient is a 69 year old [male] who presents with [pain to his left wrist start ing this morning. Patient reports he and his spouse have been out for a jog this morning, which they frequently do. Reports while he was out coming in episode where he felt his heart rate racing rapidly, fashion and he has had in the past. Reports got bit dizzy at this time as well. Reports it has since resolved. Does report he continues to have some discomfort to his left wrist. Reports he had been seen here approximately states 6 weeks ago for TIA, at which time he has had some wrist discomfort as well. Spouse reports patient had been stumbling a little bit more while walking today, states he normally does but this was worse today. Reports everything started approximately 7:00 this morning. Patient reports he had seen his barrel header within the past couple days, and normal evaluation. Denies any discomfort at this time, states he feels okay, however during exam he does report one brief episode where he had some discomfort in his chest lasting for a few seconds, which resolved spontaneously] Review of Systems Review of Systems Constitutional: Denies fever or chills [] Eyes: Denies change in visual acuity, redness, or eye pain [] HENT: Denies nasal congestion or sore throat does report he has chronic allergies all [] Respiratory: Denies cough or shortness of breath [] Cardiovascular: No additional information not addressed in HPI [] GI: Denies abdominal pain, nausea, vomiting, bloody stools or diarrhea [] : Denies dysuria or hematuria [] Musculoskeletal: Denies back pain or joint pain does report left wrist discomfort [] Integument: Denies rash or skin lesions [] Neurologic: Denies headache, focal weakness or sensory changes [] Endocrine: Denies polyuria or polydipsia [] All other systems were reviewed and found to be within normal limits, except as documented in this note. Current Medications Current Medications Current Medications Medications (Trade) Dose Ordered Sig/Glynn Start Time Stop Time Status Last Admin Dose Admin Acetaminophen (Tylenol) 650 mg PRN Q4HRS PRN 05/23/19 13:15 05/23/19 14:23 DC Ondansetron HCl (Zofran) 4 mg PRN Q8HRS PRN 05/23/19 13:15 05/23/19 14:23 DC Sodium Chloride 1,000 ml @ 75 mls/hr [id number] 05/23/19 13:05 05/23/19 14:23 DC Allergies Allergies Allergies Coded Allergies Type Severity Reaction Last Updated Verified niacin Allergy Intermediate 04/04/17 Yes Physical Exam Physical Exam Constitutional: Well developed, well nourished, no acute distress, non-toxic appearance. [] HENT: Normocephalic, atraumatic, bilateral external ears normal, oropharynx moist, no oral exudates, nose normal. [] Eyes: PERRLA, EOMI, conjunctiva normal, no discharge. [] Neck: Normal range of motion, no tenderness, supple, no stridor. [] Cardiovascular:Heart rate regular rhythm, no murmur [] Lungs & Thorax: Bilateral breath sounds clear to auscultation [] Abdomen: Bowel sounds normal, soft, no tenderness, no masses, no pulsatile mass es. [] Skin: Warm, dry, no erythema, no rash. [] Back: No tenderness, no CVA tenderness. [] Extremities: No tenderness, no cyanosis, no clubbing, ROM intact, no edema. Full range of motion to left wrist, no trauma noted. [] Neurologic: Alert and oriented X 3, normal motor function, normal sensory function, no focal deficits noted. No focal weakness noted. No slurred speech.[] Psychologic: Affect normal, judgement normal, mood normal. The patient was anxious[] Current Patient Data Vital Signs Vital Signs Date Time Temp Pulse Resp B/P (MAP) Pulse Ox O2 Delivery O2 Flow Rate FiO2 05/23/19 14:06 57 20 133/80 (97) 98 Room Air 05/23/19 10:38 98.5 98.5 Lab Values Laboratory Tests Test 05/23/19 11:32 05/23/19 12:00 White Blood Count 7.1 x10^3/uL (4.0-11.0) Red Blood Count 5.45 x10^6/uL (4.30-5.70) Hemoglobin 16.7 g/dL (13.0-17.5) Hematocrit 48.3 % (39.0-53.0) Mean Corpuscular Volume 89 fL (79-100) Mean Corpuscular Hemoglobin 31 pg (25-35) Mean Corpuscular Hemoglobin Concent 35 g/dL (31-37) Red Cell Distribution Width 13.8 % (11.5-14.5) Platelet Count 148 x10^3/uL (140-400) Neutrophils (%) (Auto) 73 % (31-73) Lymphocytes (%) (Auto) 18 % (24-48) L Monocytes (%) (Auto) 8 % (0-9) Eosinophils (%) (Auto) 1 % (0-3) Basophils (%) (Auto) 1 % (0-3) Neutrophils # (Auto) 5.1 x10^3/uL (1.8-7.7) Lymphocytes # (Auto) 1.2 x10^3/uL (1.0-4.8) Monocytes # (Auto) 0.5 x10^3/uL (0.0-1.1) Eosinophils # (Auto) 0.1 x10^3/uL (0.0-0.7) Basophils # (Auto) 0.0 x10^3/uL (0.0-0.2) Prothrombin Time 13.7 SEC (11.7-14.0) Prothrombin Time INR 1.1 (0.8-1.1) Sodium Level 143 mmol/L (136-145) Potassium Level 3.8 mmol/L (3.5-5.1) Chloride Level 108 mmol/L (98-107) H Carbon Dioxide Level 27 mmol/L (21-32) Anion Gap 8 (6-14) Blood Urea Nitrogen 14 mg/dL (8-26) Creatinine 1.0 mg/dL (0.7-1.3) Estimated GFR (Cockcroft-Gault) 74.5 BUN/Creatinine Ratio 14 (6-20) Glucose Level 105 mg/dL (70-99) H Calcium Level 9.1 mg/dL (8.5-10.1) Total Bilirubin 1.9 mg/dL (0.2-1.0) H Aspartate Amino Transferase (AST) 20 U/L (15-37) Alanine Aminotransferase (ALT) 32 U/L (16-63) Alkaline Phosphatase 108 U/L (46-116) Troponin I Quantitative < 0.017 ng/mL (0.000-0.055) Total Protein 6.6 g/dL (6.4-8.2) Albumin 3.9 g/dL (3.4-5.0) Albumin/Globulin Ratio 1.4 (1.0-1.7) Urine Collection Type Unknown Urine Color Yellow Urine Clarity Clear Urine pH 6.0 Urine Specific [place] 1.015 Urine Protein Negative mg/dL (NEG-TRACE) Urine Glucose (UA) Negative mg/dL (NEG) Urine Ketones (Stick) Negative mg/dL (NEG) Urine Blood Trace (NEG) Urine Nitrite Negative (NEG) Urine Bilirubin Negative (NEG) Urine Urobilinogen Dipstick 1.0 mg/dL (0.2 mg/dL) Urine Leukocyte Esterase Negative (NEG) Urine RBC 0 /HPF (0-2) Urine WBC 0 /HPF (0-4) Urine Squamous Epithelial Cells Few /LPF Urine Bacteria 0 /HPF (0-FEW) Laboratory Tests 05/23/19 11:32 Laboratory Tests 05/23/19 11:32 EKG EKG Normal sinus rhythm, no STEMI, Left axis deviation. [Dr Jansen [id number]] Radiology/Procedures Radiology/Procedures []indings: No acute lung infiltrate or pleural effusion or pulmonary edema or lung mass or pneumothorax is seen. The heart size, pulmonary vasculature, mediastinum and both jamal are unremarkable. Impression: No acute radiographic abnormality is seen. Electronically signed by: Delaney Gonsalves MD (05/23/2019 11:33 AM) [id number] DICTATED and SIGNED BY: DELANEY GONSALVES MD DATE: 05/23/19 1133 Findings: No acute intracranial hemorrhage or midline shift or mass-effect or hydrocephalus or extra-axial fluid collection is seen. No focal hypodense area or sulci effacement is seen to indicate an acute infarct or edema radiographically. No skull fracture or pneumocephalus is seen. No opacification of the mastoid sinuses or the middle ear cavities or the paranasal sinuses is seen. The maxillary sinuses are not completely seen in this study. Impression: No acute intracranial abnormality is seen. Electronically signed by: Delaney Gonsalves MD (05/23/2019 11:59 AM) [id number] Course & Med Decision Making Course & Med Decision Making Pertinent Labs and Imaging studies reviewed. (See chart for details) [Discussed findings with family and patient, discussed follow up with PCP vs staying observation - patient and family report they would feel much safer staying for observation due to the tachycardia he had earlier. Discussed with Dr Arroyo, agrees observation admission. Dr Arroyo visits with patient Per Dr Arroyo discussion with Dr Christianson, patient may be discharged home with follow up as patient just had evaluation with Dr Christianson within the past few days . Patient and family in agreement with this plan. Will discharge at this time. ] Dragon Disclaimer Dragon Disclaimer This electronic medical record was generated, in whole or in part, using a voice recognition dictation system. Departure Departure Impression: Primary Impression: Weakness Additional Impression: Inappropriate sinus tachycardia Disposition: 01 HOME, SELF-CARE Admitting Physician: REMEDIOS Condition: STABLE Referrals: LIO ALVAREZ MD (PCP) Patient Instructions: Nonspecific Tachycardia Additional Instructions: As discussed, follow up with Dr Christianson, or your primary care provider Return to the ER if you have further symptoms or concerns. Problem Qualifiers LISA ADAMSON DOCUMENT REVIEW ATTORNEY May 23, 2019 11:18
--- NOTE | 2019-05-23 11:36 | RAD ---
CHEST AP ONLY Clinical indications: Chest tightness. COMPARISON: March 12, 2018. Findings: No acute lung infiltrate or pleural effusion or pulmonary edema or lung mass or pneumothorax is seen. The heart size, pulmonary vasculature, mediastinum and both jamal are unremarkable. Impression: No acute radiographic abnormality is seen. Electronically signed by: Jori Gonsalves MD (05/23/2019 11:33 AM) [id number]
[2019-05-23 11:42] LABS: BASO % 1 % (0-3); EOS # 0.1 x10^3/uL (0.0-0.7); EOS % 1 % (0-3); HEMATOCRIT 48.3 % (39.0-53.0); HEMOGLOBIN 16.7 g/dL (13.0-17.5); LYMPH # 1.2 x10^3/uL (1.0-4.8); LYMPH % 18 % (24-48); MEAN CORPUSCULAR HEMOGLOBIN 31 pg (25-35); MEAN CORPUSCULAR HGB CONC 35 g/dL (31-37); MEAN CORPUSCULAR VOLUME 89 fL (79-100); MONO # 0.5 x10^3/uL (0.0-1.1); MONO % 8 % (0-9); NEUT # 5.1 x10^3/uL (1.8-7.7); NEUT % 73 % (31-73); PLATELET COUNT 148 x10^3/uL (140-400); RED BLOOD COUNT 5.45 x10^6/uL (4.30-5.70); RED CELL DISTRIBUTION WIDTH 13.8 % (11.5-14.5); WHITE BLOOD COUNT 7.1 x10^3/uL (4.0-11.0)
[2019-05-23 11:51] LABS: PROTHROMBIN TIME PATIENT 13.7 SEC (11.7-14.0)
[2019-05-23 11:54] LABS: CALCIUM 9.1 mg/dL (8.5-10.1); GFR 74.5; POTASSIUM 3.8 mmol/L (3.5-5.1)
[2019-05-23 12:01] LABS: ALBUMIN 3.9 g/dL (3.4-5.0); ALBUMIN/GLOBULIN RATIO 1.4 (1.0-1.7); TOTAL BILIRUBIN 1.9 mg/dL (0.2-1.0); TOTAL PROTEIN 6.6 g/dL (6.4-8.2)
--- NOTE | 2019-05-23 12:02 | RAD ---
CT HEAD WO CONTRAST Clinical indications: Weakness. COMPARISON: April 05, 2019. Technique: Noncontrast axial cross sectional scanning of the head was performed. PQRS compliance Statement One or more of the following individualized dose reduction techniques were utilized for this study: 1. Automated exposure control 2. Adjustment of the mA and/or kV according to patient size 3. Use of iterative reconstruction technique Findings: No acute intracranial hemorrhage or midline shift or mass-effect or hydrocephalus or extra-axial fluid collection is seen. No focal hypodense area or sulci effacement is seen to indicate an acute infarct or edema radiographically. No skull fracture or pneumocephalus is seen. No opacification of the mastoid sinuses or the middle ear cavities or the paranasal sinuses is seen. The maxillary sinuses are not completely seen in this study. Impression: No acute intracranial abnormality is seen. Electronically signed by: Jori Gonsalves MD (05/23/2019 11:59 AM) [id number]
[2019-05-23 12:13] LABS: BILIRUBIN,URINE NEGATIVE (NEG); CLARITY,URINE CLEAR; COLOR,URINE YELLOW; NITRITE,URINE NEGATIVE (NEG); PROTEIN,URINE NEGATIVE (NEG-TRACE)
[2019-05-23 12:25] LABS: BACTERIA,URINE 0 /HPF (0-FEW); RBC,URINE 0 /HPF (0-2); SQUAMOUS EPITHELIAL CELL,UR FEW /LPF; WBC,URINE 0 /HPF (0-4)
[2019-05-23] MEDS ORDERED: IV NORMAL SALINE 1000ML BAG 1,000 ML IV SCH (13:05)
[2019-05-23] MEDS ORDERED: ONDANSETRON PF 4 MG/2 ML VIAL. IV PRN (13:15)
[2019-05-23] MEDS ORDERED: ACETAMINOPHEN 325 MG TABLET. PO PRN (13:15)
--- NOTE | 2019-05-23 13:59 | PDOC1 ---
History and Physical Date of Admission Date of Admission DATE: 05/23/19 TIME: 13:52 Identification/Chief Complaint Chief Complaint tachycradia after running, both wrists hurt (pressure sensation), feeling unwell that tachy period Source Source: Caregiver, Chart review, Patient History of Present Illness History of Present Illness 69-year-old white male, who came in his own accord, accompanied by because of tachycardia after running, both wrists hurt - no limitation of ROS but pressure sensation there seems to have resolved. He has history of TIA admission March 2019 a month ago seen by Dr. Rowland of cardiology and Dr. Sharma of vascular surgery. [facility] months down the line. Seems that of on an urgent matter. I did review his old admission records. Cardiology note had an extensive discussion with both of them and actually had an outpatient loop recorder done for 2 weeks and that was unremarkable. He just saw Dr. 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 He came in because of above chief complaint. Blood work is negative, chest x-ray and CT head negative. He's actually on the bradycardic side 50s with systolic 130s AND both his Coreg and lisinopril were discontinued recently because he would bottom out in terms of blood pressure and heart rate and would be symptomatic. I was hesitant to admit the patient from the get-go. After discussing with patient and the they would be agreeable to either observation or discharge whatever is deemed appropriate I did talk to Dr. Rowland personally and he is very well versed with the patient he just saw him 2 days ago and agrees with no admission needed. Patient already has heart BP monitor etc at home. to monitor his heart rate. I revisited the patient the second time at the ER and updated him and he was agreeable to going home Discussed with Dr. Manjeet Jansen who will pass on the message to [facility] Past Medical History Cardiovascular: CAD, HTN, [place], Hyperlipidemia Pulmonary: Pneumonia, Other CENTRAL NERVOUS SYSTEM: Dementia, Other GI: GERD, Other Heme/Onc: No pertinent hx Musculoskeletal: Osteoarthritis, Other Rheumatologic: No pertinent hx Infectious disease: No pertinent hx Renal/: No pertinent hx Endocrine: No pertinent hx Past Surgical History Past Surgical History: Arthroscopy, Other Family History Family History: Coronary Artery Disease, Stroke, Other Social History Smoke: No ALCOHOL: none Drugs: None Current Problem List Problem List Problems Medical Problems: (1) Inappropriate sinus tachycardia Status: Acute (2) Weakness Status: Acute Current Medications Current Medications Current Medications Ondansetron HCl (Zofran) 4 mg PRN Q8HRS PRN IV NAUSEA/VOMITING; Start 05/23/19 at 13:15; Stop 05/24/19 at 13:14 Sodium Chloride 1,000 ml @ 75 mls/hr [id number] IV ; Start 05/23/19 at 13:05; Stop 05/24/19 at 13:04 Acetaminophen (Tylenol) 650 mg PRN Q4HRS PRN PO FEVER; Start 05/23/19 at 13:15; Stop 05/24/19 at 13:14 Active Scripts Active Aspirin Ec (Aspirin) 81 Mg Tablet. 81 Mg PO DAILYWBKFT 30 Days Reported Fluoxetine Hcl 20 Mg Capsule 20 Mg PO DAILY Ferrous Sulfate 325 Mg Tablet 325 Mg PO DAILY Lisinopril 2.5 Mg Tablet 2.5 Mg PO DAILY Carvedilol (Carvedilol) 3.125 Mg Tablet 3.125 Mg PO BIDWMEALS Vitamin D2 (Ergocalciferol (Vitamin D2)) 50,000 Unit Capsule 50,000 Unit PO QTH Pantoprazole Sodium (Pantoprazole Sodium) 40 Mg Tablet. 40 Mg PO DAILY Atorvastatin Calcium 80 Mg Tablet 80 Mg PO DAILY Effient (Prasugrel Hcl) 10 Mg Tablet 10 Mg PO DAILY Allergies Allergies: Coded Allergies: niacin (Verified Allergy, Intermediate, 04/04/17) ROS Review of System A 14 point ROS was completed with the following noted as positive: Other systems reviewed and negative. \CONSTITUTIONAL: No fever or chills EYES: No recent changes SKIN: No rash or itching CARDIOVASCULAR: No chest pain, syncope, palpitations, or edema RESPIRATORY: No SOB or cough GASTROINTESTINAL: No nausea, vomiting or abdominal pain NEUROLOGICAL: No headaches or weakness ENDOCRINE: No cold or heat intolerance GENITOURINARY: No urgency or frequency of urination MUSCULOSKELETAL: No back pain or joint pain LYMPHATICS: No enlarged lymph nodes PSYCHIATRIC: No anxiety or depression Physical Exam General: Alert, Oriented X3, Cooperative, No acute distress HEENT: Atraumatic, PERRLA Lungs: Clear to auscultation, Normal air movement Heart: S1S2, RRR, no thrills, no rubs, no gallops, no murmurs Cardiovascular: S1, S2 Rectal Exam: not examined PELVIC: Nml ext genitalia Extremities: No clubbing, No cyanosis, No edema, Normal pulses, No tenderness/swelling Skin: No rashes, No breakdown, No significant lesion Neuro: Normal gait, Normal speech, Strength at 5/5 X4 ext, Normal tone, Sensation intact, Cranial nerves 3-12 NL, Reflexes 2+ Psych/Mental Status: Mental status NL, Mood NL Vitals Vitals Vital Signs Date Time Temp Pulse Resp B/P (MAP) Pulse Ox O2 Delivery O2 Flow Rate FiO2 05/23/19 12:36 60 14 129/84 (99) 98 Room Air 05/23/19 10:38 98.5 98.5 Labs Labs Laboratory Tests Test 05/23/19 11:32 05/23/19 12:00 White Blood Count 7.1 x10^3/uL (4.0-11.0) Red Blood Count 5.45 x10^6/uL (4.30-5.70) Hemoglobin 16.7 g/dL (13.0-17.5) Hematocrit 48.3 % (39.0-53.0) Mean Corpuscular Volume 89 fL (79-100) Mean Corpuscular Hemoglobin 31 pg (25-35) Mean Corpuscular Hemoglobin Concent 35 g/dL (31-37) Red Cell Distribution Width 13.8 % (11.5-14.5) Platelet Count 148 x10^3/uL (140-400) Neutrophils (%) (Auto) 73 % (31-73) Lymphocytes (%) (Auto) 18 % (24-48) Monocytes (%) (Auto) 8 % (0-9) Eosinophils (%) (Auto) 1 % (0-3) Basophils (%) (Auto) 1 % (0-3) Neutrophils # (Auto) 5.1 x10^3/uL (1.8-7.7) Lymphocytes # (Auto) 1.2 x10^3/uL (1.0-4.8) Monocytes # (Auto) 0.5 x10^3/uL (0.0-1.1) Eosinophils # (Auto) 0.1 x10^3/uL (0.0-0.7) Basophils # (Auto) 0.0 x10^3/uL (0.0-0.2) Prothrombin Time 13.7 SEC (11.7-14.0) Prothromb Time International Ratio 1.1 (0.8-1.1) Sodium Level 143 mmol/L (136-145) Potassium Level 3.8 mmol/L (3.5-5.1) Chloride Level 108 mmol/L (98-107) Carbon Dioxide Level 27 mmol/L (21-32) Anion Gap 8 (6-14) Blood Urea Nitrogen 14 mg/dL (8-26) Creatinine 1.0 mg/dL (0.7-1.3) Estimated GFR (Cockcroft-Gault) 74.5 BUN/Creatinine Ratio 14 (6-20) Glucose Level 105 mg/dL (70-99) Calcium Level 9.1 mg/dL (8.5-10.1) Total Bilirubin 1.9 mg/dL (0.2-1.0) Aspartate Amino Transf (AST/SGOT) 20 U/L (15-37) Alanine Aminotransferase (ALT/SGPT) 32 U/L (16-63) Alkaline Phosphatase 108 U/L (46-116) Troponin I Quantitative < 0.017 ng/mL (0.000-0.055) Total Protein 6.6 g/dL (6.4-8.2) Albumin 3.9 g/dL (3.4-5.0) Albumin/Globulin Ratio 1.4 (1.0-1.7) Urine Collection Type Unknown Urine Color Yellow Urine Clarity Clear Urine pH 6.0 Urine Specific [place] 1.015 Urine Protein Negative mg/dL (NEG-TRACE) Urine Glucose (UA) Negative mg/dL (NEG) Urine Ketones (Stick) Negative mg/dL (NEG) Urine Blood Trace (NEG) Urine Nitrite Negative (NEG) Urine Bilirubin Negative (NEG) Urine Urobilinogen Dipstick 1.0 mg/dL (0.2 mg/dL) Urine Leukocyte Esterase Negative (NEG) Urine RBC 0 /HPF (0-2) Urine WBC 0 /HPF (0-4) Urine Squamous Epithelial Cells Few /LPF Urine Bacteria 0 /HPF (0-FEW) Laboratory Tests Test 05/23/19 11:32 05/23/19 12:00 White Blood Count 7.1 x10^3/uL (4.0-11.0) Red Blood Count 5.45 x10^6/uL (4.30-5.70) Hemoglobin 16.7 g/dL (13.0-17.5) Hematocrit 48.3 % (39.0-53.0) Mean Corpuscular Volume 89 fL (79-100) Mean Corpuscular Hemoglobin 31 pg (25-35) Mean Corpuscular Hemoglobin Concent 35 g/dL (31-37) Red Cell Distribution Width 13.8 % (11.5-14.5) Platelet Count 148 x10^3/uL (140-400) Neutrophils (%) (Auto) 73 % (31-73) Lymphocytes (%) (Auto) 18 % (24-48) Monocytes (%) (Auto) 8 % (0-9) Eosinophils (%) (Auto) 1 % (0-3) Basophils (%) (Auto) 1 % (0-3) Neutrophils # (Auto) 5.1 x10^3/uL (1.8-7.7) Lymphocytes # (Auto) 1.2 x10^3/uL (1.0-4.8) Monocytes # (Auto) 0.5 x10^3/uL (0.0-1.1) Eosinophils # (Auto) 0.1 x10^3/uL (0.0-0.7) Basophils # (Auto) 0.0 x10^3/uL (0.0-0.2) Prothrombin Time 13.7 SEC (11.7-14.0) Prothromb Time International Ratio 1.1 (0.8-1.1) Sodium Level 143 mmol/L (136-145) Potassium Level 3.8 mmol/L (3.5-5.1) Chloride Level 108 mmol/L (98-107) Carbon Dioxide Level 27 mmol/L (21-32) Anion Gap 8 (6-14) Blood Urea Nitrogen 14 mg/dL (8-26) Creatinine 1.0 mg/dL (0.7-1.3) Estimated GFR (Cockcroft-Gault) 74.5 BUN/Creatinine Ratio 14 (6-20) Glucose Level 105 mg/dL (70-99) Calcium Level 9.1 mg/dL (8.5-10.1) Total Bilirubin 1.9 mg/dL (0.2-1.0) Aspartate Amino Transf (AST/SGOT) 20 U/L (15-37) Alanine Aminotransferase (ALT/SGPT) 32 U/L (16-63) Alkaline Phosphatase 108 U/L (46-116) Troponin I Quantitative < 0.017 ng/mL (0.000-0.055) Total Protein 6.6 g/dL (6.4-8.2) Albumin 3.9 g/dL (3.4-5.0) Albumin/Globulin Ratio 1.4 (1.0-1.7) Urine Collection Type Unknown Urine Color Yellow Urine Clarity Clear Urine pH 6.0 Urine Specific [place] 1.015 Urine Protein Negative mg/dL (NEG-TRACE) Urine Glucose (UA) Negative mg/dL (NEG) Urine Ketones (Stick) Negative mg/dL (NEG) Urine Blood Trace (NEG) Urine Nitrite Negative (NEG) Urine Bilirubin Negative (NEG) Urine Urobilinogen Dipstick 1.0 mg/dL (0.2 mg/dL) Urine Leukocyte Esterase Negative (NEG) Urine RBC 0 /HPF (0-2) Urine WBC 0 /HPF (0-4) Urine Squamous Epithelial Cells Few /LPF Urine Bacteria 0 /HPF (0-FEW) VTE Prophylaxis Ordered VTE Prophylaxis Devices: Yes VTE Pharmacological Prophylaxi: Yes Assessment/Plan Assessment/Plan tachyCardia after exercise Intolerance to beta brandy and lisinopril-would be hypotensive and symptomatic History TIA etc. on Prasugrel Dyslipidemia on statin Plan: home today , no need for admission monitoring her heart rate blood pressure at home and follow-up with PCP when necessary Follow-up with vascular surgery as you have scheduled already next year JOSE ENRIQUE DENT MD May 23, 2019 13:59
--- NOTE | 2019-05-23 14:00 | PDOC3 ---
Discharge Summary Visit Information Date of Admission: May 23, 2019 Date of Discharge: May 23, 2019 Admitting Diagnosis Comment: Tachycardia after exercise History hypotension when on brandy and LUDWIG inhibitor History TIA on Prasugrel Dyslipidemia on statin\ PLAn: HOme today Final Diagnosis Problems Medical Problems: (1) Inappropriate sinus tachycardia Status: Acute (2) Weakness Status: Acute Brief Hospital Course Allergies Allergies Coded Allergies Type Severity Reaction Last Updated Verified niacin Allergy Intermediate 04/04/17 Yes Vital Signs Vital Signs Date Time Temp Pulse Resp B/P (MAP) Pulse Ox O2 Delivery O2 Flow Rate FiO2 05/23/19 12:36 60 14 129/84 (99) 98 Room Air 05/23/19 10:38 98.5 98.5 Lab Results Laboratory Tests Test 05/23/19 11:32 05/23/19 12:00 White Blood Count 7.1 x10^3/uL (4.0-11.0) Red Blood Count 5.45 x10^6/uL (4.30-5.70) Hemoglobin 16.7 g/dL (13.0-17.5) Hematocrit 48.3 % (39.0-53.0) Mean Corpuscular Volume 89 fL (79-100) Mean Corpuscular Hemoglobin 31 pg (25-35) Mean Corpuscular Hemoglobin Concent 35 g/dL (31-37) Red Cell Distribution Width 13.8 % (11.5-14.5) Platelet Count 148 x10^3/uL (140-400) Neutrophils (%) (Auto) 73 % (31-73) Lymphocytes (%) (Auto) 18 % (24-48) Monocytes (%) (Auto) 8 % (0-9) Eosinophils (%) (Auto) 1 % (0-3) Basophils (%) (Auto) 1 % (0-3) Neutrophils # (Auto) 5.1 x10^3/uL (1.8-7.7) Lymphocytes # (Auto) 1.2 x10^3/uL (1.0-4.8) Monocytes # (Auto) 0.5 x10^3/uL (0.0-1.1) Eosinophils # (Auto) 0.1 x10^3/uL (0.0-0.7) Basophils # (Auto) 0.0 x10^3/uL (0.0-0.2) Prothrombin Time 13.7 SEC (11.7-14.0) Prothromb Time International Ratio 1.1 (0.8-1.1) Sodium Level 143 mmol/L (136-145) Potassium Level 3.8 mmol/L (3.5-5.1) Chloride Level 108 mmol/L (98-107) Carbon Dioxide Level 27 mmol/L (21-32) Anion Gap 8 (6-14) Blood Urea Nitrogen 14 mg/dL (8-26) Creatinine 1.0 mg/dL (0.7-1.3) Estimated GFR (Cockcroft-Gault) 74.5 BUN/Creatinine Ratio 14 (6-20) Glucose Level 105 mg/dL (70-99) Calcium Level 9.1 mg/dL (8.5-10.1) Total Bilirubin 1.9 mg/dL (0.2-1.0) Aspartate Amino Transf (AST/SGOT) 20 U/L (15-37) Alanine Aminotransferase (ALT/SGPT) 32 U/L (16-63) Alkaline Phosphatase 108 U/L (46-116) Troponin I Quantitative < 0.017 ng/mL (0.000-0.055) Total Protein 6.6 g/dL (6.4-8.2) Albumin 3.9 g/dL (3.4-5.0) Albumin/Globulin Ratio 1.4 (1.0-1.7) Urine Collection Type Unknown Urine Color Yellow Urine Clarity Clear Urine pH 6.0 Urine Specific [place] 1.015 Urine Protein Negative mg/dL (NEG-TRACE) Urine Glucose (UA) Negative mg/dL (NEG) Urine Ketones (Stick) Negative mg/dL (NEG) Urine Blood Trace (NEG) Urine Nitrite Negative (NEG) Urine Bilirubin Negative (NEG) Urine Urobilinogen Dipstick 1.0 mg/dL (0.2 mg/dL) Urine Leukocyte Esterase Negative (NEG) Urine RBC 0 /HPF (0-2) Urine WBC 0 /HPF (0-4) Urine Squamous Epithelial Cells Few /LPF Urine Bacteria 0 /HPF (0-FEW) Laboratory Tests Test 05/23/19 11:32 05/23/19 12:00 White Blood Count 7.1 x10^3/uL (4.0-11.0) Red Blood Count 5.45 x10^6/uL (4.30-5.70) Hemoglobin 16.7 g/dL (13.0-17.5) Hematocrit 48.3 % (39.0-53.0) Mean Corpuscular Volume 89 fL (79-100) Mean Corpuscular Hemoglobin 31 pg (25-35) Mean Corpuscular Hemoglobin Concent 35 g/dL (31-37) Red Cell Distribution Width 13.8 % (11.5-14.5) Platelet Count 148 x10^3/uL (140-400) Neutrophils (%) (Auto) 73 % (31-73) Lymphocytes (%) (Auto) 18 % (24-48) Monocytes (%) (Auto) 8 % (0-9) Eosinophils (%) (Auto) 1 % (0-3) Basophils (%) (Auto) 1 % (0-3) Neutrophils # (Auto) 5.1 x10^3/uL (1.8-7.7) Lymphocytes # (Auto) 1.2 x10^3/uL (1.0-4.8) Monocytes # (Auto) 0.5 x10^3/uL (0.0-1.1) Eosinophils # (Auto) 0.1 x10^3/uL (0.0-0.7) Basophils # (Auto) 0.0 x10^3/uL (0.0-0.2) Prothrombin Time 13.7 SEC (11.7-14.0) Prothromb Time International Ratio 1.1 (0.8-1.1) Sodium Level 143 mmol/L (136-145) Potassium Level 3.8 mmol/L (3.5-5.1) Chloride Level 108 mmol/L (98-107) Carbon Dioxide Level 27 mmol/L (21-32) Anion Gap 8 (6-14) Blood Urea Nitrogen 14 mg/dL (8-26) Creatinine 1.0 mg/dL (0.7-1.3) Estimated GFR (Cockcroft-Gault) 74.5 BUN/Creatinine Ratio 14 (6-20) Glucose Level 105 mg/dL (70-99) Calcium Level 9.1 mg/dL (8.5-10.1) Total Bilirubin 1.9 mg/dL (0.2-1.0) Aspartate Amino Transf (AST/SGOT) 20 U/L (15-37) Alanine Aminotransferase (ALT/SGPT) 32 U/L (16-63) Alkaline Phosphatase 108 U/L (46-116) Troponin I Quantitative < 0.017 ng/mL (0.000-0.055) Total Protein 6.6 g/dL (6.4-8.2) Albumin 3.9 g/dL (3.4-5.0) Albumin/Globulin Ratio 1.4 (1.0-1.7) Urine Collection Type Unknown Urine Color Yellow Urine Clarity Clear Urine pH 6.0 Urine Specific [place] 1.015 Urine Protein Negative mg/dL (NEG-TRACE) Urine Glucose (UA) Negative mg/dL (NEG) Urine Ketones (Stick) Negative mg/dL (NEG) Urine Blood Trace (NEG) Urine Nitrite Negative (NEG) Urine Bilirubin Negative (NEG) Urine Urobilinogen Dipstick 1.0 mg/dL (0.2 mg/dL) Urine Leukocyte Esterase Negative (NEG) Urine RBC 0 /HPF (0-2) Urine WBC 0 /HPF (0-4) Urine Squamous Epithelial Cells Few /LPF Urine Bacteria 0 /HPF (0-FEW) Brief Hospital Course Mr. Medrano is a 69 old [sex] who presented with [ ] Assessment Assessment 69-year-old white male, who came in his own accord, accompanied by because of tachycardia after running, both wrists hurt - no limitation of ROS but pressure sensation there seems to have resolved. He has history of TIA admission March 2019 a month ago seen by Dr. Rowland of cardiology and Dr. Sharma of vascular surgery. He has an appointment with [facility] 6 months down the line. Seems that of on an urgent matter. I did review his old admission records. Cardiology note had an extensive discussion with both of them and actually had an outpatient loop recorder done for 2 weeks and that was unremarkable. He just saw Dr. 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 He came in because of above chief complaint. Blood work is negative, chest x-ray and CT head negative. He's actually on the bradycardic side 50s with systolic 130s AND both his Coreg and lisinopril were discontinued recently because he would bottom out in terms of blood pressure and heart rate and would be symptomatic. I was hesitant to admit the patient from the get-go. After discussing with patient and the they would be agreeable to either observation or discharge whatever is deemed appropriate I did talk to Dr. Rowland personally and he is very well versed with the patient he just saw him 2 days ago and agrees with no admission needed. Patient already has heart BP monitor etc at home. to monitor his heart rate. I revisited the patient the second time at the ER and updated him and he was agreeable to going home Discussed with Dr. Manjeet Jansen who will pass on the message to [facility] [employer] Discharge Information Condition at Discharge: Improved, Stable Disposition/Orders: D/C to Home Scheduled Aspirin (Aspirin Ec) 81 Mg Tablet., 81 MG PO DAILYWBKFT for cva prevention for 30 Days, #30 Prescribed by: SUKHDEV BLAIR MD on 04/08/19 1639 Atorvastatin Calcium (Atorvastatin Calcium) 80 Mg Tablet, 80 MG PO DAILY for FOR CHOLESTEROL, #30 Ref 0 (Reported) Entered as Reported by: Medina Vasquez on 04/04/17 1346 Carvedilol (Carvedilol ) 3.125 Mg Tablet, 3.125 MG PO BIDWMEALS, (Reported) Entered as Reported by: Medina Vasquez on 04/04/17 1346 Ergocalciferol (Vitamin D2) (Vitamin D2) 50,000 Unit Capsule, 50,000 UNIT PO QTH, (Reported) Entered as Reported by: Medina Vasquez on 04/04/17 1346 Ferrous Sulfate (Ferrous Sulfate) 325 Mg Tablet, 325 MG PO DAILY, (Reported) Entered as Reported by: Medina Vasquez on 04/04/17 1346 Fluoxetine Hcl (Fluoxetine Hcl) 20 Mg Capsule, 20 MG PO DAILY for ANXIETY / AGITATION, (Reported) Entered as Reported by: Medina Vasquez on 04/05/17 1236 Lisinopril (Lisinopril) 2.5 Mg Tablet, 2.5 MG PO DAILY for FOR HYPERTENSION, #30 Ref 0 (Reported) Entered as Reported by: Medina Vasquez on 04/04/17 1346 Pantoprazole Sodium (Pantoprazole Sodium ) 40 Mg Tablet., 40 MG PO DAILY, (Reported) Entered as Reported by: Medina Vasquez on 04/04/17 1346 Prasugrel Hcl (Effient) 10 Mg Tablet, 10 MG PO DAILY, (Reported) Entered as Reported by: Medina Vasquez on 04/04/17 134 JOSE ENRIQUE DENT MD May 23, 2019 14:00
[2019-05-23 14:06] VITALS: BP 133/80
--- NOTE | 2019-05-23 15:35 | EKG ---
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
== END 2019-05-23 14:12 | disposition home or self-care (01) ==
LOC: ER 10:24
DX: R53.1 Weakness (principal); R00.0 Tachycardia, unspecified; M25.532 Pain in left wrist; R42 Dizziness and giddiness; R51 Headache; E78.00 Pure hypercholesterolemia, unspecified; I11.9 Hypertensive heart disease without heart failure; I25.10 Atherosclerotic heart disease of native coronary artery without angina pectoris; I25.2 Old myocardial infarction; Z95.5 Presence of coronary angioplasty implant and graft; Z88.8 Allergy status to other drugs, medicaments and biological substances
CPT/HCPCS: 36415; 70450; 71045; 80053; 81001; 84484; 85025; 85610; 93005; 99285-25

== ENCOUNTER 2019-05-29 12:56 | Emergency (ER) | payer MEDICARE ==
[~2019-05-29] VITALS: Ht 182.9 cm; Wt 90.7 kg
[2019-05-29 13:00] VITALS: BP 140/86
[2019-05-29] MEDS ORDERED: DEXAMETHASONE 4 MG TABLET PO STA (13:28)
[2019-05-29] MEDS ORDERED: diphenhydrAMINE 50 MG/ML VIAL IM STA (13:28)
--- NOTE | 2019-05-29 13:33 | PHYS DOC ---
Past Medical History Past Medical History: CAD, High Cholesterol, Heart Disease, Hypertension, [place], Stroke Past Surgical History: Other Additional Past Surgical Histo: stents placed in November. right knee orthoscopy Alcohol Use: None Drug Use: None Adult General Chief Complaint Chief Complaint: INSECT [facility] HPI Patient is a 69 year old female that presents with a bee sting that occurred 40 from his prior to arrival. Location a bee sting is on his left forearm, left third digit, and right first digit. The patient states that it is become swollen, and he is having mild pain 3 out of 10 in severity. Denies any other complaints. Review of Systems Review of Systems Constitutional: Denies fever or chills [] Eyes: Denies change in visual acuity, redness, or eye pain [] HENT: Denies nasal congestion or sore throat [] Respiratory: Denies cough or shortness of breath [] Cardiovascular: No additional information not addressed in HPI [] GI: Denies abdominal pain, nausea, vomiting, bloody stools or diarrhea [] : Denies dysuria or hematuria [] Musculoskeletal: Denies back pain or joint pain [] Integument: Reports bee stings. Neurologic: Denies headache, focal weakness or sensory changes [] Endocrine: Denies polyuria or polydipsia [] Complete systems were reviewed and found to be within normal limits, except as d ocumented in this note. Allergies Allergies Allergies Coded Allergies Type Severity Reaction Last Updated Verified niacin Allergy Intermediate 04/04/17 Yes Physical Exam Physical Exam Constitutional: Well developed, well nourished, no acute distress, non-toxic appearance. [] HENT: Normocephalic, atraumatic, bilateral external ears normal, oropharynx moist, no oral exudates, nose normal. [] Eyes: PERRLA, EOMI, conjunctiva normal, no discharge. [] Neck: Normal range of motion, no tenderness, supple, no stridor. [] Cardiovascular:Heart rate regular rhythm, no murmur [] Lungs & Thorax: Bilateral breath sounds clear to auscultation [] Abdomen: Bowel sounds normal, soft, no tenderness, no masses, no pulsatile masses. [] Skin: bee stings to Left forearm, left 3rd digit, and R 1st digit with mild edema and erythema. Back: No tenderness, no CVA tenderness. [] Extremities: No tenderness, no cyanosis, no clubbing, ROM intact, no edema. [] Neurologic: Alert and oriented X 3, normal motor function, normal sensory function, no focal deficits noted. [] Psychologic: Affect normal, judgement normal, mood normal. [] EKG EKG [] Radiology/Procedures Radiology/Procedures [] Course & Med Decision Making Course & Med Decision Making Pertinent Labs and Imaging studies reviewed. (See chart for details) Will give IM Benadryl and Decadron to help with stings. Dragon Disclaimer Dragon Disclaimer This electronic medical record was generated, in whole or in part, using a voice recognition dictation system. Departure Departure Impression: Primary Impression: Sting from hornet, wasp, or bee Disposition: 01 HOME, SELF-CARE Condition: STABLE Referrals: LIO ALVAREZ MD (PCP) Patient Instructions: Bee, Wasp, or Hornet Sting Additional Instructions: Thank you for visiting [facility]. We appreciate you trusting us with your care. If any additional problems come up don't hesitate to return to visit us. Please follow up with your primary care provider so they can plan additional care if needed and know about the problem that you had. If symptoms worsen come back to the Emergency Department. Any concerning symptoms that start such as chest pain, shortness of air, weakness or numbness on one side of the body, running high fevers or any other concerning symptoms return to the ER. Can take Benadryl 25 mg every 12 hours to help with histamine response. Be aware this may make you drowsy. If it gets severe can take Benadryl 25 mg every 6 hours. If you start having any sort of difficulty breathing or swallowing please come to ER. Problem Qualifiers Primary Impression: Sting from hornet, wasp, or bee Encounter type: initial encounter Injury intent: accidental or unintentional Qualified Codes: T63.451A - Toxic effect of venom of hornets, accidental (unintentional), initial encounter; T63.441A - Toxic effect of venom of bees, accidental (unintentional), initial encounter; T63.461A - Toxic effect of venom of wasps, accidental (unintentional), initial encounter SHONNA LOVING APRN May 29, 2019 13:33
== END 2019-05-29 13:46 | disposition home or self-care (01) ==
LOC: ER 12:56
DX: T63.441A Toxic effect of venom of bees, accidental (unintentional), initial encounter (principal); E78.00 Pure hypercholesterolemia, unspecified; I11.9 Hypertensive heart disease without heart failure; I25.10 Atherosclerotic heart disease of native coronary artery without angina pectoris; I25.2 Old myocardial infarction; Z86.73 Personal history of transient ischemic attack (TIA), and cerebral infarction without residual deficits; Z95.5 Presence of coronary angioplasty implant and graft; Z88.8 Allergy status to other drugs, medicaments and biological substances; Y92.89 Other specified places as the place of occurrence of the external cause
CPT/HCPCS: 96372; 99283; J1200; J8540

== ENCOUNTER → 2021-12-12 | Outpatient (CLI) | payer MEDICARE ==
[~2021-12-12] MED LIST changes: -ASPI-612 PO; +ASPI-886 PO; +FLUO20CA22 PO; -FLUO20CA8 PO; -LISI2.5T PO; +LISI2.5T12 PO
[2021-12-12 08:29] LABS: BASO % 1 % (0-3); EOS # 0.1 x10^3/uL (0.0-0.7); EOS % 2 % (0-3); HEMATOCRIT 48.4 % (39.0-53.0); HEMOGLOBIN 16.4 g/dL (13.0-17.5); LYMPH # 1.1 x10^3/uL (1.0-4.8); LYMPH % 18 % (24-48); MEAN CORPUSCULAR HEMOGLOBIN 29 pg (25-35); MEAN CORPUSCULAR HGB CONC 34 g/dL (31-37); MEAN CORPUSCULAR VOLUME 87 fL (79-100); MONO # 0.5 x10^3/uL (0.0-1.1); MONO % 8 % (0-9); NEUT # 4.3 x10^3/uL (1.8-7.7); NEUT % 71 % (31-73); PLATELET COUNT 151 x10^3/uL (140-400); RED BLOOD COUNT 5.57 x10^6/uL (4.30-5.70); RED CELL DISTRIBUTION WIDTH 13.8 % (11.5-14.5); WHITE BLOOD COUNT 6.1 x10^3/uL (4.0-11.0)
[2021-12-12 08:52] LABS: ALBUMIN 3.7 g/dL (3.4-5.0); ALBUMIN/GLOBULIN RATIO 1.2 (1.0-1.7); CALCIUM 8.8 mg/dL (8.5-10.1); GFR 74.1; POTASSIUM 4.1 mmol/L (3.5-5.1); TOTAL BILIRUBIN 1.6 mg/dL (0.2-1.0); TOTAL PROTEIN 6.7 g/dL (6.4-8.2)
[2021-12-12 08:55] LABS: CHOLESTEROL/HDL RATIO 2.9
--- NOTE | 2021-12-12 14:25 | RAD ---
MR#: [id number] Date of Study: 12/12/2021 Ordering Physician: ALEKSANDR LUJAN, Referring Physician: ALEKSANDR LUJAN, Tech: Marco Hi MBA, RDMS, RVT, RDCS, RTR APPROVED REPORT Patient Location: OUT-PATIENT Laterality:Bilateral Indications CAROTID STENOSIS Doppler Spectral Velocity Analysis Right Left pCCA 86/18 cm/spCCA 127/24 cm/s mCCA 100/22 cm/smCCA 99/26 cm/s dCCA 97/21 cm/sdCCA 90/25 cm/s Bulb 80/20 cm/sBulb 56/12 cm/s ECA 105/ cm/sECA 119/ cm/s pICA 63/19 cm/spICA 72/24 cm/s Mike 76/23 cm/smICA 79/28 cm/s dICA 81/24 cm/sdICA 77/28 cm/s Vert. 34/ cm/sVert. 50/ cm/s Subcl. 117/ cm/sSubcl. 119/ cm/s ICA/CCA 0.81ICA/CCA 0.62 Findings Grayscale images of extracranial carotid arteries bilaterally showed mild diffuse atherosclerosis and mild to moderate plaque involving the carotid bulbs bilaterally. Spectral waveform and color duplex analysis showed normal velocities in common, internal and external carotid arteries suggestive of 0 to less than 50% stenosis. The ICA to CCA ratio is within normal limits bilaterally. The vertebral arteries showed antegrade flow with normal velocities. No significant carotid artery stenosis was no ludmila. Critical Notification Critical Value: No <Conclusion> Carotid arterial duplex scan did not show any significant carotid artery stenosis. Signed by : Corey Hernández, Electronically Approved : 12/12/2021 14:25:06
--- NOTE | 2021-12-13 18:05 | CARD ---
MR#: [id number] Date of Study: 12/12/2021 Ordering Physician: ALEKSANDR LUJAN, Referring Physician: ALEKSANDR LUJAN, Tech: Hany Crouch [facility] APPROVED REPORT EXAM: Two-dimensional and M-mode echocardiogram with Doppler and color Doppler. Other Information Quality : AverageHR: 53bpm Rhythm : Bradycardia INDICATION Cardiac Disease: CAD 2D DIMENSIONS Left Atrium(2D)4.2 (1.6-4.0cm)IVSd1.0 (0.7-1.1cm) Aortic Root(2D)3.7 (2.0-3.7cm)LVDd5.4 (3.9-5.9cm) LVOT Diameter2.3 (1.8-2.4cm)PWd1.0 (0.7-1.1cm) LA Rtdehx90 (18-58mL)LVDs3.7 (2.5-4.0cm) FS (%) 30.9 %SV81.0 ml Aortic Valve AoV Peak Eliud.117.3cm/sAoV VTI28.4cm AO Peak GR.5.5mmHgLVOT Peak Eliud.106.1cm/s LVOT VTI 23.76cmAO Mean GR.3mmHg MARCO (VMAX)2.24lb5UDA (VTI)3.46cm2 Mitral Valve MV E Vlmrhgbk22.4cm/sMV DECEL [id number] MV A Qqmfkbsz26.2cm/sMV [id number] E/A Ratio1.3MVA (PHT)3.54cm2 TDI E/Lateral E'7.2E/Medial E'8.3 Pulmonary Valve PV Peak Tzkayeqe406.2cm/sPV Peak Grad.4mmHg Tricuspid Valve TR P. Rijpsygt510fj/sTR Peak Gr.23mmHg Pulmonary Vein S1 Falmgomc56.1cm/sD2 Scevifqr46.1cm/s LEFT VENTRICLE The left ventricle is normal size. There is normal left ventricular wall thickness. The left ventricu lar systolic function is normal and the ejection fraction is within normal range. Left ventricular ej ection fraction of 50-55%. There is normal LV segmental wall motion. The left ventricular diastolic f unction and filling is normal for age. No left ventricle thrombus noted on this study. There is no ve ntricular septal defect visualized. There is no left ventricular aneurysm. There is no mass noted in the left ventricle. RIGHT VENTRICLE The right ventricle is normal size. There is normal right ventricular wall thickness. The right ventr icular systolic function is normal. ATRIA The left atrium is mildly dilated. The right atrium size is normal. The interatrial septum is intact with no evidence for an atrial septal defect or patent foramen ovale as noted on 2-D or Doppler imagi ng. AORTIC VALVE The aortic valve is normal in structure and function. Doppler and Color Flow revealed no significant aortic regurgitation. There is no significant aortic valvular stenosis. There is no aortic valvular v egetation. MITRAL VALVE The mitral valve is normal in structure and function. There is no evidence of mitral valve prolapse. There is no mitral valve stenosis. Doppler and Color-flow revealed trace to mild mitral regurgitation . TRICUSPID VALVE The tricuspid valve is normal in structure and function. Doppler and Color Flow revealed trace tricus pid regurgitation. The PA pressure was estimated at 27 mmHg. There is no tricuspid valve prolapse or vegetation. There is no tricuspid valve stenosis. PULMONIC VALVE The pulmonary valve is normal in structure and function. Doppler and Color Flow revealed no pulmonic valvular regurgitation. There is no pulmonic valvular stenosis. GREAT VESSELS The aortic root is normal in size. The ascending aorta is normal in size. The pulmonary artery is nor mal. The IVC is normal in size and collapses >50% with inspiration. PERICARDIAL EFFUSION There is no pleural effusion. There is no evidence of significant pericardial effusion. Critical Notification Critical Value: No <Conclusion> The left ventricle is normal size. The left ventricular systolic function is normal and the ejection fraction is within normal range. Left ventricular ejection fraction of 50-55%. Doppler and Color Flow revealed no significant aortic regurgitation. There is no significant aortic valvular stenosis. Doppler and Color-flow revealed trace to mild mitral regurgitation. Doppler and Color Flow revealed trace tricuspid regurgitation. The PA pressure was estimated at 27 mmHg. Signed by : Isaiah Rogers MD Electronically Approved : 12/13/2021 18:05:27
== END ==
LOC: US 08:01
PROVIDERS: ATTEND Internal Medicine Cardiovascular Disease
DX: I65.23 Occlusion and stenosis of bilateral carotid arteries (principal); I34.0 Nonrheumatic mitral (valve) insufficiency; I25.10 Atherosclerotic heart disease of native coronary artery without angina pectoris
CPT/HCPCS: 36415; 80053; 80061; 85025; 93306; 93880; C8929